=== PATIENT | female | born 1950 | race Caucasian/White ===

== ENCOUNTER 2017-12-21 12:27 | Day surgery (SDC) | payer MEDICARE, OTHER, SELFPAY ==
--- NOTE | 2017-12-21 | PATH_ITS ---
[facility] Accession Number: [id number] . 01 Material submitted: . RANDOM COLON BIOPSY . 02 Diagnosis: Random Colon, Biopsies: Colonic mucosa with no diagnostic abnormality. Negative for active or microscopic colitis. Negative for granulomata, dysplasia or malignancy. MRV/12/22/2017 . 02 Electronically signed: . Ricky Perez MD, PhD, Pathologist NPI- [id number] . 01 Gross description: . Received in one formalin-filled container labeled with the patient's name and labeled random colon, are multiple less than 0.1 cm to 0.4 cm portions of tissue, entirely submitted in one cassette. ([id number]) /FRR . 02 Pathologist provided ICD-10: R19.4 . 02 CPT . 392606 Specimen Comment: A duplicate report has been generated due to demographic updates. Performed at: 01 [facility] [address] [facility], [place], [place] [id number] MD Gil Mary MD Phone: [phone] Performed at: 02 [facility] [address] [place], [place] [id number] MD Ailyn Tinsley MD Phone: [phone]
[2017-12-21 13:21] LABS: Prothrombin Time 10.5 SECONDS (10.1-12.7)
[2017-12-21 14:02] LABS: Hepatitis B Surface Antigen NEGATIVE s/c (NEGATIVE)
[2017-12-21 14:16] VITALS: BP 123/81; PULSE 84; RESP 16; TEMP 36.7; O2SAT 96; BMI 23.8
[2017-12-21] MEDS: SODIUM CHLORIDE 0.9% 1,000 ML 100 ML IV (14:21)
[2017-12-21 14:23] LABS: Hep C Virus Ab w/Reflex Quant NEGATIVE s/c (NEGATIVE)
--- NOTE | 2017-12-21 14:59 | PM.PREOP ---
Pre-operative Note Interval Note Pre-op Check: Yes History & Physical Reviewed by Physician and Yes Exam Performed Changes: No ASA Class (for procedural sedation): II
--- NOTE | 2017-12-21 14:59 | PM.OP.ENDO ---
Operative Date/Time/Diagnoses Date of procedure: 12/21/17 Time of procedure: 15:00 Pre-op diagnosis: See indications and findings Post-op diagnosis: same Procedure & Clinicians Study performed: Colonoscopy Same procedure as scheduled: Yes (Colorectal cancer screening) Indications: Colorectal cancer screening. Incidental indication: Diarrhea Surgeon: Freddy Cardona Procedure Notes Procedure in detail: After informed consent was obtained the patient was placed in the left lateral decubitus position. The video colonoscope was introduced the rectum slowly advanced cecum. On slow withdrawal mucosa was carefully examined. The scope was removed. The patient tolerated the procedure well. Blood loss none Complications none Sedation Versed 10 mg fentanyl 150 mcg Total sedation time 23 min Findings 1. Completely normal colonic mucosa to cecum. Random biopsies taken to rule out microscopic colitis 2. Rare scattered sigmoid diverticula 3. Otherwise negative colonoscopy to cecum. Will be in touch regarding her biopsy results. She will not need a follow-up colonoscopy for 10 years.
[2017-12-21] MEDS: fentaNYL 250 MCG/5 ML INJ IV (15:05)
[2017-12-21] MEDS: MIDAZOLAM 5 MG/5 ML VIAL IV (15:06)
[2017-12-21 15:26] VITALS: BP 100/72; PULSE 79; RESP 14; TEMP 36.8; O2SAT 93
[2017-12-21 15:31] VITALS: BP 100/72; PULSE 78; RESP 13; O2SAT 94
[2017-12-21 15:43] VITALS: BP 99/69; PULSE 72; RESP 16; TEMP 37.3; O2SAT 95
[2017-12-21 15:57] VITALS: BP 112/78; PULSE 71; RESP 16; TEMP 36.8; O2SAT 95
[2017-12-23 20:05] LABS: ANA Pattern Speckled; ANA Screen, IFA Positive (Negative); ANA Titer 1:40 titer (<1:40)
== END 2017-12-21 16:10 | disposition home or self-care (01) ==
PROVIDERS: Family Provider Family Medicine; PCP Family Medicine; Visit Provider Internal Medicine Gastroenterology
PROC: 0DJD8ZZ Inspection of Lower Intestinal Tract, Via Natural or Artificial Opening Endoscopic (ICD-10-PCS; CPT 45378; principal; 2017-12-21 14:30)
DX: Z12.11 Encounter for screening for malignant neoplasm of colon (principal); K57.30 Diverticulosis of large intestine without perforation or abscess without bleeding; E03.9 Hypothyroidism, unspecified
CPT/HCPCS: 45380; 36415; 82728; 85610; 86038; 86803; 87340; 88305; J2250; J3010

== ENCOUNTER 2018-01-20 09:16 | Day surgery (SDC) | payer MEDICARE, OTHER, SELFPAY ==
[2018-01-20] VITALS (21 sets, daily range): BP systolic 106–150; BP diastolic 71–97; PULSE 65–103; RESP 14–18; TEMP 36.3–36.9; O2SAT 93–100; BMI 25.4
--- NOTE | 2018-01-20 | PATH_ITS ---
[facility] Accession Number: [id number] . 01 Material submitted: . LIVER TISSUE . 02 Diagnosis: Liver, Needle Core Biopsies: Liver with mild steatosis (approximatley 15%), predominantly macrovesicular; please see comment. No significant fibrosis on trichrome stain. MRV/01/24/2018 . 02 Comment: Sections are of liver parenchyma with mild steatosis (approximately 15%), predominantly macrovesicular. There is no significant portal or lobular inflammation. Plasma cells are not identified. There is no significant fibrosis on a trichrome stain. A reticulin stain highlights the intact reticulin meshwork. There are no intrahepatocytic globules of alpha-1 antitrypsin deficiency seen on a PAS stain with diastase. There is focal minimal intrahepatocytic iron deposition (1+) highlighted on iron stain. Overall, the findings are mild and nonspecific, but are consistent with metabolic injury. There is no evidence of steatohepatitis in this biopsy. . 02 Electronically signed: . Ricky Perez MD, PhD, Pathologist NPI- [id number] . 01 Gross description: . Received in formalin, labeled US biopsy ABD or RETROPERIT, are multiple fragmented and intact core biopsies of weinberg-white translucent tissue (length-0.2 cm-1.2 cm, diameters-less than 0.1 cm). Entirely submitted in cassette A1. ([id number]) /MRV . 02 Pathologist provided ICD-10: R74.0 . 02 CPT . 248675, 786769, 924220, 770185, 366075 Performed at: 01 [facility] [address] [place] [address] [address], [place], [place] [id number] MD Gil Mary MD Phone: [phone] Performed at: 02 [facility] [address] [place] [id number] MD Ailyn Tinsley MD Phone: [phone]
--- NOTE | 2018-01-20 | DI.US.S_ITS ---
PROCEDURE: US BIOPSY ABD OR RETROPERIT Ultrasound-guided liver biopsy with sedation analgesia for 15 minutes. INDICATIONS: CIRRHOSIS TECHNIQUE: The indications, alternatives, benefits, risks, and complications of the procedure were explained to the patient. Written informed consent was obtained and placed in the chart. Continuous EKG and hemodynamic monitoring was started by trained personnel. Real-time sonography was utilized to choose the site for percutaneous liver biopsy. The skin was prepped and draped in the usual sterile fashion. 1% lidocaine was infiltrated down to the site of interest. A coaxial needle was then advanced into the site of interest under direct sonographic visualization. A biopsy apparatus was then utilized, and core biopsies were obtained. The needle was then withdrawn; a bandage was applied to the biopsy site. COMPARISON: None. FINDINGS: Biopsy site(s): Left lower liver Needle: SiteWit 20 gauge biopsy needle set. Number of passes: 3 Medications: 1% lidocaine for local anaesthesia. IV Versed and Fentanyl for conscious sedation for 15 minutes (see nursing record). Complications: None. IMPRESSION: Successful ultrasound-guided liver biopsy, with pathology results pending. Dictated by: Mick Allen M.D. on 01/20/2018 at 13:31 Approved by: Mick Allen M.D. on 01/20/2018 at 13:34
[2018-01-20] MEDS: ACETAMINOPHEN 325 MG TABLET 975 MG PO (13:06)
[2018-01-20] MEDS: MIDAZOLAM 2 MG/2 ML VIAL 1.5 MG IV (14:45)
[2018-01-20] MEDS: fentaNYL 100 MCG/2 ML INJ 50 MCG IV (14:46)
--- NOTE | 2018-01-20 15:16 | SUR.PHASEII ---
Talked to Dr. Allen and he wants to d/c pt to home. pt awake and alert. denies any pain. pt's bandaid dry and intact.
== END 2018-01-20 15:30 | disposition admitted as inpatient to this hospital (09) ==
PROVIDERS: PCP Family Medicine; Visit Provider Internal Medicine Gastroenterology
PROC: BF25ZZZ Computerized Tomography (CT Scan) of Liver (ICD-10-PCS; CPT 47000; principal; 2018-01-20 10:30)
DX: K76.0 Fatty (change of) liver, not elsewhere classified (principal); R74.0 Nonspecific elevation of levels of transaminase and lactic acid dehydrogenase [LDH]; R94.5 Abnormal results of liver function studies; E03.9 Hypothyroidism, unspecified; R63.4 Abnormal weight loss; R68.81 Early satiety
CPT/HCPCS: 10022; 47000; 49180; 76942; 88307; 88313; J2250; J3010

== ENCOUNTER → 2018-12-29 08:38 | Outpatient (CLI) | payer MEDICARE, OTHER, SELFPAY ==
[2018-12-29 10:42] LABS: Add Manual Diff / Slide Review NO; Basophils Absolute Auto 0 /uL (0-100); Basophils Percent Auto 0.6 % (0-2); Eosinophils Absolute Auto 200 /uL (0-450); Eosinophils Percent Auto 2.6 % (2-4); Hemoglobin 15.4 g/dL (12.0-16.0); Lymphocytes Absolute Auto 1300 /uL (1100-4500); Lymphocytes Percent Auto 19.1 % (25-40); Mean Corpuscular HGB Conc 34.9 % (30-36); Mean Corpuscular Hemoglobin 36.8 PG (26-34); Mean Corpuscular Volume 105.4 fL (80-100); Monocytes Absolute Auto 800 /uL (0-900); Monocytes Percent Auto 11.9 % (3-14); Neutrophils Absolute Auto 4600 /uL (1500-7000); Neutrophils Percent Auto 65.8 % (50-75); Platelet Count 313 X10^3/uL (150-400); Red Blood Cell Count 4.18 X10^6/uL (4.0-5.2); Red Cell Distribution Width 12.6 % (11.6-14.8)
[2018-12-29 10:57] LABS: Carbon Dioxide 25 mmol/L (22-32); Chloride 100 mmol/L (98-107); HEMOLYSIS < 15 (0-50); Potassium 4.1 mmol/L (3.4-5.1); Sodium 137 mmol/L (137-145)
== END ==
PROVIDERS: Family Provider Family Medicine; PCP Family Medicine; Visit Provider Orthopaedic Surgery Adult Reconstructive Orthopaedic Surgery
DX: Z01.818 Encounter for other preprocedural examination (principal); Z01.812 Encounter for preprocedural laboratory examination
CPT/HCPCS: 36415; 80051; 85025; 93005

== ENCOUNTER 2019-01-05 05:59 | Day surgery (SDC) | payer MEDICARE, OTHER, SELFPAY ==
[2019-01-05] VITALS (13 sets, daily range): BP systolic 87–126; BP diastolic 63–82; PULSE 68–99; RESP 12–18; TEMP 36.3–36.8; O2SAT 93–98; BMI 24.5
[2019-01-05] MEDS: LACTATED RINGERS 1,000 ML 42 ML IV (06:50)
[2019-01-05] MEDS: CEFAZOLIN 1 GM VIAL 2 GM IV (08:05)
[2019-01-05] MEDS: ACETAMINOPHEN IV 1,000 MG/100 ML VIAL 400 MG IV (08:15)
--- NOTE | 2019-01-05 08:18 | SUR.OPER ---
Supine on padded OR bed, head on pillow, arms secured on padded arm boards at <90 degrees abduction, legs uncrossed, safety belt at thigh, tape over blanket over lower legs. left leg bumped with blankets, bump under hip also
[2019-01-05] MEDS: BUPIVACAINE 0.5% W/ EPI (PF) VIAL 30 ML INJ (09:52)
--- NOTE | 2019-01-05 09:57 | PM.HP.1 ---
History of Present Illness History of Present Illness Date Patient Seen: 01/05/19 Time Patient Seen: 07:45 Chief complaint: [id number] Narrative: No change in H& P since clinic. Patient is here for open reduction internal fixation of left ankle trimalleolar ankle fracture. Patient History Medical History (Updated 01/01/19 @ 15:17 by Florina Castillo RN) Ankle fracture, left (Acute) Hypothyroid (Acute) Surgical History (Updated 01/01/19 @ 15:16 by Florina Castillo RN) History of dental surgery (Acute) Hx of tonsillectomy (Acute) Family & Social History Social History: household members spouse Tobacco & Substance use: Smoking Status Unknown if ever smoked alcohol intake current Meds Home Medications and Allergies Home Medications Medication Instructions Recorded Confirmed Type levothyroxine 100 mcg PO DAILY 12/21/17 01/05/19 History noawozk-jckxumrzqhzpj-wyvwhyaw 1 tab PO Q4-6H PRN 01/05/19 01/05/19 History [Excedrin Extra Strength] naproxen sodium [Aleve] 220 mg PO Q8H PRN 01/05/19 01/05/19 History Allergies Allergy/AdvReac Type Severity Reaction Status Date / Time erythromycin base Allergy Severe lips Verified 01/05/19 06:45 swelled up Exam Vital Signs (past 8 hours): - 01/05/19 06:57 Temperature 97.8 F Pulse Rate 85 Respiratory Rate 16 Blood Pressure 110/74 Pulse Oximetry 98 Oxygen Delivery Method Room Air
--- NOTE | 2019-01-05 09:58 | PM.OP.1 ---
Operative Date/Time/Diagnoses Date of procedure: 01/05/19 Time of procedure: 09:59 Pre-op diagnosis: Trimalleolar ankle fracture Post-op diagnosis: same Procedure & Clinicians Procedure: Open reduction internal fixation left ankle fracture. Same procedure as scheduled: Yes Indications: Unstable trimalleolar ankle fracture Surgeon: Julián Lombardi Electroplater Apprentice: Richie Jorge Anesthesia Type: General Operative Notes Findings: Unstable trimalleolar ankle fracture Closure Type: primary Specimen(s): none sent Prosthetic devices, grafts, tissues, transplants, or devices: Arthrex left locking distal fibular plate 5 hole Estimated Blood Loss (mL): 50 Blood products transfused: none Tourniquet time (min): 95 Procedure in detail: Patient is met in the preoperative holding area where the site and side of surgery were marked by MD. All last minute questions were answered. Patient was then brought back in the operating room where she was induced under general anesthesia. The left lower extremity splint was then removed. A nonsterile tourniquet was placed and he left lower extremity was then prepped and draped in normal sterile fashion. A time-out was performed verifying the site and side of surgery as well as the name and MRN to the patient. Once this was completed a 10 cm long incision was made over the distal fibula. Skin incision was made using 15 blade dissection down to the level of the bone was made using dissection scissors. The superficial peroneal nerve was not visualized in the field. The fracture was then cleaned with a 15 blade, curette, and irrigation. Once this was completed the fracture was reduced using xybqe-pl-xmfqh clamps. Due the nature of the fracture was unable to place a lag screw. Placed a Arthrex 5 hole left distal fibula locking plate and secured to the bone using BB tacks. I then placed the distal locking screws into the plate. Followed by the proximal locking screws. Tangential views were obtained to verify the reduction. The wound was then irrigated and closed with 2 O Vicryl. We then turned our attention to the medial side a 3 cm long incision made over the medial malleolus at the fracture site. Skin incision was made using 15 blade and sharp dissection down the level of bone was made using dissection scissors. Sgjxl-kt-esnpi clamp was then used to reduce the fracture. Two K-wires were then placed parallel to each other from the tip of the medial malleolus proximal. These were measured to be 55 cm in length these were then overdrilled. X-rays were taken to verify that we were outside of the joint. And to 55 mm partially threaded screws were placed. This was then irrigated. We obtained final films verifying the reduction of the fracture as well as stability of the syndesmosis on external rotation stress view was obtained. The medial wound was then closed with 2 O Vicryl followed by 3 O nylon in horizontal mattress fashion and the lateral incision was finished being closed using 3 O nylon in a horizontal mattress fashion. Xeroform was then placed followed by a short-leg splint. Patient was then extubated and taken to the PACU in stable condition. Complications: none Post-operative Condition: stable Disposition: PACU Plan for aftercare: Plan for discharge home today. NWB LLE for a total of 6 weeks. RTC in 2 weeks for suture removal and transition to CAM boot.
[2019-01-05] MEDS: fentaNYL 100 MCG/2 ML INJ IV ×4 (10:14→10:55)
[2019-01-05] MEDS: OXYCODONE IR 5 MG TABLET PO ×2 (10:24→11:16)
--- NOTE | 2019-01-05 11:18 | SUR.PHASEI ---
Patient arrived in PACU c/o 10/10 pain and crying. Gave po and IV pain medication. Patient denies nausea and is tolerating po. Patient states pain is currently tolerable. Patient able to wriggle toes, cap refill < 2 seconds and patient has normal feeling to toes. Popliteal +2 and palpable.
--- NOTE | 2019-01-05 12:02 | SUR.PHASEII ---
Patient stated her spouse had her cellphone
== END 2019-01-05 12:00 | disposition home or self-care (01) ==
PROVIDERS: Family Provider Family Medicine; PCP Family Medicine; Visit Provider Orthopaedic Surgery Adult Reconstructive Orthopaedic Surgery
PROC: (CPT 27792; principal; 2019-01-05 07:45)
DX: S82.852A Displaced trimalleolar fracture of left lower leg, initial encounter for closed fracture (principal); W01.0XXA Fall on same level from slipping, tripping and stumbling without subsequent striking against object, initial encounter; G89.18 Other acute postprocedural pain
CPT/HCPCS: 27792; 27766; 64445; J0131; J0690; J1100; J2250; J2405; J2704; J3010

== ENCOUNTER 2021-07-03 13:27 | Observation (INO) | payer MEDICARE, OTHER, SELFPAY ==
[2021-07-03] VITALS (19 sets, daily range): BP systolic 102–120; BP diastolic 60–76; PULSE 89–125; RESP 20–31; TEMP 36.6–37.6; O2SAT 91–100; BMI 22.6
[2021-07-03 14:24] LABS: Add Manual Diff / Slide Review NO; Basophils Absolute Auto 100 /uL (0-100); Basophils Percent Auto 0.4 % (0-2); Eosinophils Absolute Auto 0 /uL (0-450); Hematocrit 49.5 % (36-46); Hemoglobin 16.4 g/dL (12.0-16.0); Lymphocytes Absolute Auto 1300 /uL (1100-4500); Lymphocytes Percent Auto 7.2 % (25-40); Mean Corpuscular HGB Conc 33.1 % (30-36); Mean Corpuscular Hemoglobin 36.9 PG (26-34); Mean Corpuscular Volume 111.4 fL (80-100); Monocytes Absolute Auto 2100 /uL (0-900); Monocytes Percent Auto 11.7 % (3-14); Neutrophils Absolute Auto 14600 /uL (1500-7000); Neutrophils Percent Auto 80.7 % (50-75); Platelet Count 216 X10^3/uL (150-400); Red Blood Cell Count 4.44 X10^6/uL (4.0-5.2); Red Cell Distribution Width 14.3 % (11.6-14.8); White Blood Cell Count 18.1 X10^3/uL (4.5-11.0)
[2021-07-03 14:40] LABS: Albumin 4.7 g/dL (3.5-5.0); Albumin Globulin Ratio 1.8 (1.0-2.8); Alkaline Phosphatase 114 U/L (38-126); Aspartate Aminotransferase 228 IU/L (14-36); BUN Creatinine Ratio 10.8 (6-22); Bilirubin Total 1.2 mg/dL (0.2-1.3); Blood Urea Nitrogen 12 mg/dL (7-17); Calcium 9.6 mg/dL (8.4-10.2); Chloride 104 mmol/L (98-107); Estimated Glomerular Filt Rate 53 mL/min (>60); Globulin 2.6 g/dL (1.7-4.1); Lipase 128 U/L (23-300); Potassium 4.2 mmol/L (3.4-5.1); Sodium 144 mmol/L (137-145); Total Protein 7.3 g/dL (6.3-8.2)
[2021-07-03 14:47] LABS: Alanine Aminotransferase 83 IU/L (<35); HEMOLYSIS 30 (0-50)
[2021-07-03 14:50] LABS: Carbon Dioxide 7 mmol/L (22-32); Glucose 42 mg/dL (80-110)
[2021-07-03 14:57] LABS: Macrocytosis 2+
[2021-07-03 15:14] LABS: Ethanol (ETOH) 27 mg/dL
[2021-07-03] MEDS: DEXTROSE 10 % IN WATER 250 ML 999 ML IV (15:15)
[2021-07-03] MEDS: ONDANSETRON 4 MG/2 ML INJ IV (15:50)
[2021-07-03] MEDS: SODIUM CHLORIDE 0.9% 1,000 ML 1000 ML IV ×2 (16:15→19:16)
--- NOTE | 2021-07-03 16:33 | DI.CT.S_ITS ---
PROCEDURE: CT ABDOMEN PELVIS W CON INDICATIONS: vomiting x 1 month, hypoglycemia TECHNIQUE: After the administration of intravenous contrast, axial sections acquired from the lung bases to the pubic symphysis. Coronal and sagittal reformats were performed. For radiation dose reduction, the following was used: automated exposure control, adjustment of mA and/or kV according to patient size. COMPARISON: None. FINDINGS: Lower thorax: The lung bases are clear. Heart size normal. No hiatal hernia. Liver: The liver is diffusely decreased in attenuation without focal mass lesion. Biliary system: No calcified cholelithiasis or pericholecystic inflammation. No intra or extrahepatic bile duct dilatation. Pancreas: Unremarkable without mass or inflammation evident. Spleen: Normal in size and density. Adrenals: Normal morphology and density. Reproductive system: Unremarkable as visualized. Urinary system: Normal renal size and attenuation. No renal calculi, hydronephrosis, or solid mass present. Urinary bladder unremarkable. Gastrointestinal: Gastric antral wall thickening and mucosal enhancement could reflect focal gastritis in the proper clinical setting. The stomach appears unremarkable. Multiple diverticula arise from the sigmoid colon without evidence of diverticulitis. Appendix: Normal appendix identified. No evidence of appendicitis. Peritoneal spaces: No mesenteric or retroperitoneal adenopathy. No free air. No free fluid. Vasculature: The IVC, aorta and iliac vasculature are unremarkable. Abdominal wall: Abdominal wall intact without evidence of ventral or inguinal hernias. Musculoskeletal: Normal bone mineralization. Degenerative disc disease and arthropathy noted in lower lumbar spine. Severe central stenosis at L3-4 No acute fractures. IMPRESSION: 1. Gastric antral wall thickening could reflect gastritis in the proper clinical setting. No obstruction or perforation. 2. Sigmoid diverticulosis without evidence of diverticulitis. 3. Advanced hepatic fatty infiltration and degenerative disc disease with arthropathy resulting in severe L3-4 central stenosis Approved by: Amando Hannah M.D. on 07/03/2021 at 16:21
[2021-07-03] MEDS: SODIUM CHLORIDE 0.9% 1,000 ML 150 ML IV (17:38)
[2021-07-03 18:58] LABS: Lactate (Lactic Acid) 9.6 mmol/L (0.7-2.1)
--- NOTE | 2021-07-03 19:00 | ED.GENADULT ---
HPI - General Adult General Chief complaint: Abdominal Pain Stated complaint: sore throat, stomach cramps, vomiting blood Time Seen by Provider: 07/03/21 16:33 Source: patient and family () Mode of arrival: Ambulatory Limitations: no limitations History of Present Illness HPI narrative: Patient is a 70-year-old female who is here with her for evaluation of a sore throat and stomach cramps and vomiting and abdominal pain. Somewhat difficult to obtain the exact timeline of the onset of the symptoms as it appears that the abdominal issues and nausea and vomiting have actually been going on for several weeks or potentially longer. Does appear that things have worsened over the past couple days. There has been no fevers. No shortness of breath. No chest pain. No change in bowel habits. No urinary symptoms. No muscle pain. No skin rashes. No headaches. She has had issues with nausea and difficulty with eating for some time now. It appears that she fell earlier in the week but did not sustain any injuries from this. She has had a colonoscopy within the past 5 years and was told that everything was ?okay ?she was not given a specific time as to when to return for another colonoscopy. She does drink alcohol every morning for ?medical purposes ?. She is here in the emergency department today with her who encouraged her to come in to be evaluated given the above symptoms. Related Data Home Medications Medication Instructions Recorded Confirmed larxvdy-vuztcpjolumsf-vimvqcyu 250 1 tab PO Q4-6H PRN 01/05/19 07/03/21 mg-250 mg-65 mg tablet (Excedrin Extra Strength) Allergies Allergy/AdvReac Type Severity Reaction Status Date / Time erythromycin base Allergy Severe lips Verified 07/03/21 14:05 swelled up Review of Systems Constitutional Constitutional: Reports system reviewed and no additional complaints, except as documented ENT Ears, Nose, Mouth, and Throat: Reports system reviewed and no additional complaints, except as documented Cardiovascular Cardiovascular: Reports system reviewed and no additional complaints, except as documented Respiratory Respiratory: Reports system reviewed and no additional complaints, except as documented Gastrointestinal Gastrointestinal: Reports system reviewed and no additional complaints, except as documented Genitourinary Genitourinary: Reports system reviewed and no additional complaints, except as documented Musculoskeletal Musculoskeletal: Reports system reviewed and no additional complaints, except as documented Integumentary/Breasts Skin/Breast: Reports system reviewed and no additional complaints, except as documented Neurologic Neurologic: Reports system reviewed and no additional complaints, except as documented Hematologic/Lymphatic On Anticoagulants: No Allergic/Immunologic Allergic/Immunologic: Reports system reviewed and no additional complaints, except as documented Patient History Medical History Ankle fracture, left Hypothyroid Surgical History History of dental surgery Hx of tonsillectomy Social History household members: spouse Smoking Status: Never smoker alcohol intake: current Smoking Status: Unknown if ever smoked alcohol intake frequency: 0-2 drinks per day Alcohol type: wine Exam Initial Vital Signs Initial Vital Signs: Vital Signs Temperature 97.8 F 07/03/21 13:55 Pulse Rate 125 H 07/03/21 13:55 Respiratory Rate 20 07/03/21 13:55 Blood Pressure 104/60 07/03/21 13:55 Pulse Oximetry 100 07/03/21 13:55 Const General: cooperative, healthy appearing and comfortable HENCO Head: normal to inspection Resp Effort & Inspection: normal respiratory effort Auscultation: clear to auscultation bilaterally Cardio Rate: tachycardic Rhythm: regular rhythm GI Inspection: normal to inspection Palpation: soft, No firm, No guarding and No tender Skin General: no rashes or lesions noted Neuro General: patient alert, patient awake, patient oriented x3 and moves all extremities Extrem General: normal to inspection and No edema Psych Appearance: grossly normal and well kempt Scores GCS Bailey coma scale eye opening: Spontaneous Bailey coma scale verbal response: Orientated Bailey coma scale motor response: Obey commands Kentrell coma scale total score: 15 Course Orders Ordered: ED Orders 07/03/21 16:33 CT abdomen pelvis w con Stat 07/03/21 18:21 Lactate (Lactic Acid) Stat 07/03/21 19:27 COVID19 -Nasal RAPID/Pre-Proc Stat 07/03/21 19:33 XR chest 1V Stat 07/03/21 20:55 Blood Culture Stat Acetaminophen (Acetaminophen 325 Mg Tablet) 650 mg PO Q6HR IRIS Last Admin: 07/03/21 23:16 Dose: 650 mg Documented by: CTR.[email or web address] Hydrocodone Bitart/Acetaminophen (Hydrocodone/Acet 5/325 Tablet) 1 tab PO Q4HR PRN PRN Reason: Pain, Moderate (4-6) Folic Acid (Folic Acid 1 Mg Tablet) 1 mg PO DAILY IRIS Sodium Chloride (Normal Saline 0.9%) 1,000 mls @ 150 mls/hr IV CONT IRIS Last Infusion: 07/03/21 20:30 Dose: 0 mls/hr Documented by: Infusion: 07/03/21 19:16 Dose: 0 mls/hr Documented by: Admin: 07/03/21 17:38 Dose: 150 mls/hr Documented by: LACI Sodium Chloride (Normal Saline 0.9%) 1,000 mls @ 100 mls/hr IV CONT IRIS Last Infusion: 07/03/21 23:36 Dose: 100 mls/hr Documented by: Admin: 07/03/21 21:23 Dose: 100 mls/hr Documented by: WALI Dextrose/Sodium Chloride (Dextrose 5%-0.9% Ns) 1,000 mls @ 100 mls/hr IV CONT [facility] Last Admin: 07/03/21 23:36 Dose: 100 mls/hr Documented by: WALI Lorazepam (Lorazepam 1 Mg Tablet) 0 mg PO CIWAPRN PRN; Protocol PRN Reason: Alcohol Withdrawal Last Admin: 07/03/21 23:17 Dose: 1 mg Documented by: WALI Multivitamins (Multivitamin 1 Tablet) 1 tab PO DAILY [facility] Naloxone HCl (Naloxone 0.4 Mg/Ml Vial) 0.2 mg IV Q2MIN PRN PRN Reason: Opiate Reversal Ondansetron HCl (Ondansetron 4 Mg/2 Ml Inj) 4 mg IV Q6HR PRN PRN Reason: Nausea And Vomiting Ondansetron HCl (Ondansetron 4 Mg/2 Ml Inj) 4 mg IV Q8HR PRN PRN Reason: Nausea And Vomiting Thiamine HCl (Thiamine 100 Mg Tablet) 100 mg PO DAILY IIRS Stop: 07/07/21 09:01 Discontinued Medications Dextrose (D10w) 250 mls @ 999 mls/hr IV NOW ONE Stop: 07/03/21 15:27 Last Infusion: 07/03/21 16:00 Dose: 0 mls/hr Documented by: Admin: 07/03/21 15:15 Dose: 999 mls/hr Documented by: TRANG Sodium Chloride (Normal Saline 0.9%) 1,000 mls @ 1,000 mls/hr IV BOLUS ONE Stop: 07/03/21 17:07 Last Infusion: 07/03/21 17:38 Dose: 0 mls/hr Documented by: Admin: 07/03/21 16:15 Dose: 1,000 mls/hr Documented by: KARTHIKEYAN Piperacillin Sod/Tazobactam (Sod 4.5 gm/ Sodium Chloride) 100 mls @ 200 mls/hr IV NOW ONE Stop: 07/03/21 19:04 Last Infusion: 07/03/21 20:04 Dose: 0 mls/hr Documented by: Admin: 07/03/21 19:15 Dose: 200 mls/hr Documented by: LACI Sodium Chloride (Normal Saline 0.9%) 1,000 mls @ 1,000 mls/hr IV BOLUS ONE Stop: 07/03/21 20:03 Last Infusion: 07/03/21 20:30 Dose: 0 mls/hr Documented by: Admin: 07/03/21 19:16 Dose: 1,000 mls/hr Documented by: LACI Ondansetron HCl (Ondansetron 4 Mg/2 Ml Inj) 4 mg IV NOW ONE Stop: 07/03/21 15:47 Last Admin: 07/03/21 15:50 Dose: 4 mg Documented by: TRANG Vital Signs Vital signs: Vital Signs - 8 hr 07/03/21 16:30 07/03/21 17:02 07/03/21 17:30 Pulse Rate 114 H 102 H 105 H Respiratory Rate 31 H 30 H 23 Blood Pressure 120/71 106/69 Pulse Oximetry 96 97 93 07/03/21 18:00 07/03/21 18:30 07/03/21 19:00 Pulse Rate 109 H 116 H 110 H Respiratory Rate 24 Blood Pressure 102/67 Pulse Oximetry 91 94 95 07/03/21 19:30 Pulse Rate 103 H Respiratory Rate Blood Pressure Pulse Oximetry 94 Medical Decision Making Lab Data Lab results reviewed: Yes I reviewed the patient's lab results. Result diagrams: 07/03/21 14:19 07/03/21 14:19 Labs: Lab Results 07/03/21 07/03/2107/03/22 Range/Units 14:19 14:19 14:19 WBC 18.1 H (4.5-11.0) X10^3/uL RBC 4.44 (4.0-5.2) X10^6/uL Hgb 16.4 H (12.0-16.0) g/dL Hct 49.5 H (36-46) % MCV 111.4 H (80-100) fL MCH 36.9 H (26-34) PG MCHC 33.1 (30-36) % RDW 14.3 (11.6-14.8) % Plt Count 216 (150-400) X10^3/uL Neut % (Auto) 80.7 H (50-75) % Lymph % (Auto) 7.2 L (25-40) % Wilkinson % (Auto) 11.7 (3-14) % Eos % (Auto) 0.0 L (2-4) % Baso % (Auto) 0.4 (0-2) % Neut # (Auto) 25578 H (4629-8927) /uL Lymph # (Auto) 1300 (4932-0768) /uL Wilkinson # (Auto) 2100 H (0-900) /uL Eos # (Auto) 0 (0-450) /uL Baso # (Auto) 100 (0-100) /uL RBC Morphology See below Macrocytosis 2+ H Sodium 144 (137-145) mmol/L Potassium 4.2 (3.4-5.1) mmol/L Chloride 104 (98-107) mmol/L Carbon Dioxide 7 L* (22-32) mmol/L BUN 12 (7-17) mg/dL Creatinine 1.11 H (0.52-1.04) mg/dL Estimated GFR 53 L (>60) mL/min BUN/Creatinine Ratio 10.8 (6-22) Glucose 42 L* (80-110) mg/dL Lactate (0.7-2.1) mmol/L Calcium 9.6 (8.4-10.2) mg/dL Total Bilirubin 1.2 (0.2-1.3) mg/dL AST 228 H (14-36) IU/L ALT 83 H (<35) IU/L Alkaline Phosphatase 114 (38-126) U/L Total Protein 7.3 (6.3-8.2) g/dL Albumin 4.7 (3.5-5.0) g/dL Globulin 2.6 (1.7-4.1) g/dL Albumin/Globulin Ratio 1.8 (1.0-2.8) Lipase 128 (23-300) U/L Ethyl Alcohol 27 H ( - 10) mg/dL SARS-CoV-2 (PCR) (Negative) 07/03/21 07/03/21 Range/Units 18:21 19:27 WBC (4.5-11.0) X10^3/uL RBC (4.0-5.2) X10^6/uL Hgb (12.0-16.0) g/dL Hct (36-46) % MCV (80-100) fL MCH (26-34) PG MCHC (30-36) % RDW (11.6-14.8) % Plt Count (150-400) X10^3/uL Neut % (Auto) (50-75) % Lymph % (Auto) (25-40) % Wilkinson % (Auto) (3-14) % Eos % (Auto) (2-4) % Baso % (Auto) (0-2) % Neut # (Auto) (6017-9356) /uL Lymph # (Auto) (0986-3786) /uL Wilkinson # (Auto) (0-900) /uL Eos # (Auto) (0-450) /uL Baso # (Auto) (0-100) /uL RBC Morphology Macrocytosis Sodium (137-145) mmol/L Potassium (3.4-5.1) mmol/L Chloride (98-107) mmol/L Carbon Dioxide (22-32) mmol/L BUN (7-17) mg/dL Creatinine (0.52-1.04) mg/dL Estimated GFR (>60) mL/min BUN/Creatinine Ratio (6-22) Glucose (80-110) mg/dL Lactate 9.6 H* (0.7-2.1) mmol/L Calcium (8.4-10.2) mg/dL Total Bilirubin (0.2-1.3) mg/dL AST (14-36) IU/L ALT (<35) IU/L Alkaline Phosphatase (38-126) U/L Total Protein (6.3-8.2) g/dL Albumin (3.5-5.0) g/dL Globulin (1.7-4.1) g/dL Albumin/Globulin Ratio (1.0-2.8) Lipase (23-300) U/L Ethyl Alcohol ( - 10) mg/dL SARS-CoV-2 (PCR) Negative (Negative) Point of Care Testing Glucose POC 113 Urine Dip Bedside Urine Glucose Negative Bedside Urine Bilirubin - Negative Bedside Urine Ketone +++ 80 Urine Specific Alger 1.020 Bedside Urine Occult Blood +/- Bedside Urine pH 5.5 Bedside Urine Protein - Negative Bedside Urine Urobilinogen - Negative Bedside Urine Nitrite - Negative Bedside Urine Leukocytes + 70 Esterase Point of care testing: Point of Care Testing Glucose POC 113 Urine Dip Bedside Urine Glucose Negative Bedside Urine Bilirubin - Negative Bedside Urine Ketone +++ 80 Urine Specific Alger 1.020 Bedside Urine Occult Blood +/- Bedside Urine pH 5.5 Bedside Urine Protein - Negative Bedside Urine Urobilinogen - Negative Bedside Urine Nitrite - Negative Bedside Urine Leukocytes + [address] scan - abdomen/pelvis: Radiologist's Impression: [place] [address] CT Scan Report Signed Patient: Cindy Collins MR#: [id number] : 1950 Acct:[id number] Age/Sex: 70 / F Date of Service: 07/03/21 Loc: Accession Number: [id number] ?? Procedure: CT abdomen pelvis w con Ordering Provider: Tracey Mcnamara D.O. PROCEDURE:? CT ABDOMEN PELVIS W CON ? INDICATIONS:? vomiting x 1 month, hypoglycemia ? TECHNIQUE:? After the administration of intravenous contrast, axial sections acquired from the lung bases to the pubic symphysis.? Coronal and sagittal reformats were performed.? For radiation dose reduction, the following was used:? automated exposure control, adjustment of mA and/or kV according to patient size.? ? COMPARISON:? None. ? FINDINGS: ? Lower thorax: The lung bases are clear.? Heart size normal.? No hiatal hernia. ? Liver: The liver is diffusely decreased in attenuation without focal mass lesion. ? Biliary system:? No calcified cholelithiasis or pericholecystic inflammation.? No intra or extrahepatic bile duct dilatation. ? Pancreas:? Unremarkable without mass or inflammation evident. ? Spleen:? Normal in size and density. ? Adrenals:? Normal morphology and density. ? Reproductive system:? Unremarkable as visualized. ? Urinary system:? Normal renal size and attenuation. No renal calculi, hydronephrosis, or solid mass present.? Urinary bladder unremarkable. ? Gastrointestinal:? Gastric antral wall thickening and mucosal enhancement could reflect focal gastritis in the proper clinical setting. The stomach appears unremarkable.? Multiple diverticula arise from the sigmoid colon without evidence of diverticulitis. ? ? Appendix:? Normal appendix identified.? No evidence of appendicitis. ? Peritoneal spaces:? No mesenteric or retroperitoneal adenopathy.? No free air.? No free fluid.? ? Vasculature:? The IVC, aorta and iliac vasculature are unremarkable. ? Abdominal wall:? Abdominal wall intact without evidence of ventral or inguinal hernias. ? Musculoskeletal:? Normal bone mineralization.? Degenerative disc disease and arthropathy noted in lower lumbar spine.? Severe central stenosis at L3-4? No acute fractures.? ? IMPRESSION: ? 1. Gastric antral wall thickening could reflect gastritis in the proper clinical setting. ?No obstruction or perforation. ? 2. Sigmoid diverticulosis without evidence of diverticulitis. ? 3. Advanced hepatic fatty infiltration and degenerative disc disease with arthropathy resulting in severe L3-4 central stenosis ? Approved by: Amando Hannah M.D. on 07/03/2021 at 16:21? Chest x-ray: Radiologist's Impression: [address] [address] XRay Report Signed Patient: Cindy Collins MR#: [id number] : 1950 Acct:[id number] Age/Sex: 70 / F Date of Service: 07/03/21 Loc: 90D-1 Accession Number: [id number] ?? Procedure: XR chest 1V Ordering Provider: Omi Ho D.O. PROCEDURE:? XR CHEST 1V ? INDICATIONS:? eval for PNA ? TECHNIQUE:? One view of the chest was acquired.? ? COMPARISON:? None. ? FINDINGS:? ? Surgical changes and devices:? None.? ? Lungs and pleura:? Lungs are clear.? No pleural effusions or pneumothorax.? ? Mediastinum:? Mediastinal contours appear normal.? Heart size is normal.? ? Bones and chest wall:? No suspicious bony lesions.? Overlying soft tissues appear unremarkable.? ? IMPRESSION:? No acute process. ? ? Dictated by: Boom Ramsey M.D. on 07/03/2021 at 19:58 ? ? Approved by: Boom Ramsey M.D. on 07/03/2021 at 19:58?? ECG Data Attestation: I personally reviewed and interpreted this ECG as follows: Interpretation: Sinus tachycardia Ventricular rate 114 Left axis deviation Normal QRS Normal QTC ST T vision MDM Narrative Medical decision making narrative: Unsure exactly how long her presenting symptoms today have been going on it appears that several of the symptoms that brought her in a been going on for at least the past several weeks if not longer however does appear things have worsened over the past couple days. She has very nonspecific abdominal tenderness and a benign abdominal exam. CT scan shows what appears to be a gastritis. Given her alcohol use history there was some concern about an alcoholic gastritis. Labs show a leukocytosis. Patient is tachycardic. Initially patient declined blood cultures. Fluids were administered. Lactate elevated at greater than 9. Antibiotics were administered however they were started after the lactate returned because initially I was not convinced that there was a specific infection despite her tachycardic on leukocytosis. She did have an elevation in her hemoglobin and hematocrit which could also be signs hemoconcentration which can add to the elevation in her white blood cell count. Given her presenting symptoms her lab abnormalities patient does require admission to the hospital for further evaluation and treatment. I did discuss the case with hospitalist who will admit. Discussed need for admission with the patient. She expressed understanding and agreement. Discharge Plan Departure Patient Disposition: Admitted As Inpatient Clinical Impression: Gastritis Qualifiers: Gastritis type: unspecified gastritis Chronicity: acute Gastritis bleeding: with bleeding Qualified Code(s): K29.01 - Acute gastritis with bleeding Admit Date/Time: 07/03/21 19:58 Admit Provider: Vicky Jiang
[2021-07-03] MEDS: PIPERACILLIN/TAZO 4.5 GM in SODIUM CHLORIDE 0.9% 100 ML IV (19:15)
--- NOTE | 2021-07-03 19:33 | DI.RAD.S_ITS ---
PROCEDURE: XR CHEST 1V INDICATIONS: eval for PNA TECHNIQUE: One view of the chest was acquired. COMPARISON: None. FINDINGS: Surgical changes and devices: None. Lungs and pleura: Lungs are clear. No pleural effusions or pneumothorax. Mediastinum: Mediastinal contours appear normal. Heart size is normal. Bones and chest wall: No suspicious bony lesions. Overlying soft tissues appear unremarkable. IMPRESSION: No acute process. Dictated by: Boom Ramsey M.D. on 07/03/2021 at 19:58 Approved by: Boom Ramsey M.D. on 07/03/2021 at 19:58
[2021-07-03 20:11] LABS: COVID19 -Nasal RAPID Negative (Negative)
[2021-07-03 20:25] LABS: Reflexed Lactate in 2 Hours Y
--- NOTE | 2021-07-03 20:30 | P.HP_ITS ---
History of Present Illness History of Present Illness Date Patient Seen: 07/03/21 Date of Onset of Symptoms: 07/02/21 Chief complaint: sore throat, stomach cramps, vomiting blood Narrative: 70-year-old very pleasant female with no significant past medical history with significant Excedrin use and ongoing alcohol daily use started having worsening the stomach cramps and vomited small amount of blood yesterday. She has been having decrease in appetite and also decrease in oral intake potentially had a mechanical fall related to weakness brought by her because of for oral intake concerns. Patient other than complaining some abdominal discomfort she d enies any specific symptoms. On further questioning patient says abdominal pain is diffuse probably 3/10 associated with some diarrhea which has been chronic but episode of vomiting yesterday. Patient says that Excedrin did help for the pain but she primarily takes that for her headaches. She also drinks 4 oz of wine in the morning and 4 oz of wine in the evening. She has been doing this for several years. As per the she does not drink much water and her overall diet intake is been relatively poor. She is active with daily routine. She does have headaches but not more than usual. Denies any vision changes. She denies any history of alcohol withdrawals. No recent hospitalization. No exposure to sick contacts. No further episodes of vomiting blood or coughing blood today. Patient History Medical History Ankle fracture, left Hypothyroid Surgical History History of dental surgery Hx of tonsillectomy Family & Social History Social History: household members spouse Safety & Behavioral: Feels Safe in Current Yes Environment Tobacco & Substance use: Smoking Status Unknown if ever smoked alcohol intake current alcohol intake frequency 0-2 drinks per day Meds Home Medications and Allergies Home Medications Medication Instructions Recorded Confirmed Type eebnokm-rzgedrbeblcpo-shfvpxrk 250 1 tab PO Q4-6H PRN 01/05/19 07/03/21 History mg-250 mg-65 mg tablet (Excedrin Extra Strength) Allergies Allergy/AdvReac Type Severity Reaction Status Date / Time erythromycin base Allergy Severe lips Verified 07/03/21 14:05 swelled up Review of Systems Review of Systems Narrative: Patient denies any change in the color of the stools. Denies any significant weight changes in recent past. All other systems has been reviewed. Negative. Exam Vital Signs (past 8 hours): - 07/03/21 13:55 07/03/21 14:58 07/03/21 14:59 Temperature 97.8 F Pulse Rate 125 H 114 H 114 H Respiratory Rate 20 Blood Pressure 104/60 106/63 Pulse Oximetry 100 97 97 07/03/21 15:00 07/03/21 15:30 07/03/21 16:00 Temperature Pulse Rate 115 H 109 H 118 H Respiratory Rate 27 H 26 H Blood Pressure 102/64 103/64 105/76 Pulse Oximetry 97 97 95 07/03/21 16:30 07/03/21 17:02 07/03/21 17:30 Temperature Pulse Rate 114 H 102 H 105 H Respiratory Rate 31 H 30 H 23 Blood Pressure 120/71 106/69 Pulse Oximetry 96 97 93 07/03/21 18:00 07/03/21 18:30 Temperature Pulse Rate 109 H 116 H Respiratory Rate 24 Blood Pressure 102/67 Pulse Oximetry 91 94 Oxygen Delivery Method Room Air Objective Labs Result Diagrams: 07/03/21 14:19 07/03/21 14:19 Labs: Laboratory Results - last 24 hr 07/03/21 07/03/21 07/03/21 14:19 14:19 14:19 WBC 18.1 H RBC 4.44 Hgb 16.4 H Hct 49.5 H MCV 111.4 H MCH 36.9 H MCHC 33.1 RDW 14.3 Plt Count 216 Neut % (Auto) 80.7 H Lymph % (Auto) 7.2 L Clinton % (Auto) 11.7 Eos % (Auto) 0.0 L Baso % (Auto) 0.4 Neut # (Auto) 09849 H Lymph # (Auto) 1300 Clinton # (Auto) 2100 H Eos # (Auto) 0 Baso # (Auto) 100 RBC Morphology See below Macrocytosis 2+ H Sodium 144 Potassium 4.2 Chloride 104 Carbon Dioxide 7 L* BUN 12 Creatinine 1.11 H Estimated GFR 53 L BUN/Creatinine Ratio 10.8 Glucose 42 L* Lactate Calcium 9.6 Total Bilirubin 1.2 AST 228 H ALT 83 H Alkaline Phosphatase 114 Total Protein 7.3 Albumin 4.7 Globulin 2.6 Albumin/Globulin Ratio 1.8 Lipase 128 Ethyl Alcohol 27 H SARS-CoV-2 (PCR) 07/03/21 07/03/21 18:21 19:27 WBC RBC Hgb Hct MCV MCH MCHC RDW Plt Count Neut % (Auto) Lymph % (Auto) Clinton % (Auto) Eos % (Auto) Baso % (Auto) Neut # (Auto) Lymph # (Auto) Clinton # (Auto) Eos # (Auto) Baso # (Auto) RBC Morphology Macrocytosis Sodium Potassium Chloride Carbon Dioxide BUN Creatinine Estimated GFR BUN/Creatinine Ratio Glucose Lactate 9.6 H* Calcium Total Bilirubin AST ALT Alkaline Phosphatase Total Protein Albumin Globulin Albumin/Globulin Ratio Lipase Ethyl Alcohol SARS-CoV-2 (PCR) Negative Assessment & Plan Assessment and plan (1) Gastritis: Qualifiers: Chronicity: acute Gastritis bleeding: with bleeding Gastritis type: unspecified gastritis Qualified Code(s): K29.01 - Acute gastritis with bleeding Status: Acute (2) Upper GI bleed: Status: Acute (3) Dehydration: Status: Acute (4) SIRS (systemic inflammatory response syndrome): Status: Acute Plan Admit under observation status IV fluids Watch for any alcohol withdrawal symptoms, [facility] protocol H&H monitoring Q6H Surgery called for EGD in the morning, NPO from midnight Patient already received Zosyn for potential GI infection Cultures are pending Continue Zosyn, discontinue antibiotics if cultures are negative, chest x-ray negative for acute process. My suspicion for ongoing infectious process is low. Compression stockings for DVT prophylaxis, ambulation as tolerated. Protonix ordered for GI prophylaxis. Patient is full code. Patient has been extensively discussed regarding Excedrin use, alcohol use. at bedside. Care plan extensively discussed. Answered all the questions. Overall prognosis has been discussed. Time Spent With Patient Critical Care time: I spent a total of [80] minutes of critical care time on this patient's care today; this time is exclusive of procedural time.
[2021-07-03] MEDS: SODIUM CHLORIDE 0.9% 1,000 ML 100 ML IV (21:23)
[2021-07-03 21:31] LABS: Lactate 2HR (Lactic Acid Rflx) 4.2 mmol/L (0.7-2.1)
[2021-07-03] MEDS: LORazepam 1 MG TABLET PO (23:17)
[2021-07-03] MEDS: DEXTROSE 5%-0.9% NS 1,000 ML 100 ML IV (23:36)
--- NOTE | 2021-07-03 23:49 | PC.NURSE ---
Lab called with Lactate critical value of 4.2. Informed Dr Jiang of value at 2104.
[2021-07-04] VITALS (24 sets, daily range): BP systolic 90–124; BP diastolic 59–85; PULSE 72–90; RESP 13–21; TEMP 36.1–37.1; O2SAT 93–98; BMI 22.6
--- NOTE | 2021-07-04 | PATH_ITS ---
[facility] Accession Number: [id number] . 01 Material submitted: . gastrointestinal site - GASTRIC ANTRUM . 01 Diagnosis: A. Stomach, Antrum, Biopsy: Antral mucosa with mild chronic gastritis. Negative for Helicobacter by immunohistochemistry. Negative for intestinal metaplasia. Negative for dysplasia and malignancy. MRV 07/09/2021 1304 Local . 01 Electronically signed: . Ailyn Tinsley MD, Pathologist NPI- [id number] . 01 Gross description: . GASTRIC ANTRUM: Received in formalin is 1 fragment(s) of mcleod, soft tissue measuring 0.3 x 0.2 x 0.2 cm submitted entirely in 1 cassette(s) /[place] 07/07/2021 2225 Local . 01 Microscopic: . An immunohistochemical stain was performed to evaluate for Helicobacter organisms and is negative. The control stain showed appropriate reactivity. . * This test was developed and its performance characteristics determined by [facility]. It has not been cleared or approved by the U.S. Food and Drug Administration. The FDA has determined that such clearance or approval is not necessary. This test is used for clinical purposes. It should not be regarded as investigational or for research. . 01 Pathologist provided ICD-10: R10.9 . 01 CPT . 167810, R01304 Specimen Comment: A courtesy copy of this report has been sent to [phone] Performed at: 01 [facility] [address] [place] [address], [place], [place] [id number] MD Gil Mary MD Phone: [phone]
[2021-07-04] MEDS: ONDANSETRON 4 MG/2 ML INJ IV (01:45)
[2021-07-04] MEDS: HYDROCODONE/ACET 5/325 TABLET 1 TAB PO (01:45)
[2021-07-04 02:47] LABS: Hematocrit 36.9 % (36-46); Hemoglobin 12.5 g/dL (12.0-16.0)
[2021-07-04] MEDS: ACETAMINOPHEN 325 MG TABLET 650 MG PO ×3 (06:30→18:41)
[2021-07-04 07:43] LABS: Prothrombin Time 10.7 SECONDS (10.1-12.7)
[2021-07-04 07:48] LABS: Alanine Aminotransferase 55 IU/L (<35); Albumin 3.3 g/dL (3.5-5.0); Albumin Globulin Ratio 1.5 (1.0-2.8); Alkaline Phosphatase 67 U/L (38-126); Aspartate Aminotransferase 106 IU/L (14-36); Blood Urea Nitrogen 11 mg/dL (7-17); Calcium 8.1 mg/dL (8.4-10.2); Carbon Dioxide 24 mmol/L (22-32); Chloride 106 mmol/L (98-107); Estimated Glomerular Filt Rate > 60 mL/min (>60); Globulin 2.2 g/dL (1.7-4.1); Glucose 132 mg/dL (80-110); HEMOLYSIS < 15 (0-50); Potassium 4.1 mmol/L (3.4-5.1); Sodium 135 mmol/L (137-145); Total Protein 5.5 g/dL (6.3-8.2)
[2021-07-04] MEDS: PANTOPRAZOLE 40 MG VIAL IV ×2 (08:13→20:25)
[2021-07-04] MEDS: DEXTROSE 5%-0.9% NS 1,000 ML 100 ML IV (09:22)
--- NOTE | 2021-07-04 10:15 | PM.CN ---
History of Present Illness Consult details Date Patient Seen: 07/04/21 Time Patient Seen: 10:15 Chief complaint: sore throat, stomach cramps, vomiting blood Reason for consult: Upper GI bleed Requesting provider: Minh Traore Narrative: hemetemisis yesterday with abdominal discomfort and h/o ETOH chronic use. No previous episodes. No prior EGDs. Coughing up blood has stopped. still indigestion and anxiety. Mild anemia. Feels better NPO and on PPI. Meds Home Medications and Allergies Home Medications Medication Instructions Recorded Confirmed Type [id number] 250 1 tab PO Q4-6H PRN 01/05/19 07/03/21 History mg-250 mg-65 mg tablet (Excedrin Extra Strength) Allergies Allergy/AdvReac Type Severity Reaction Status Date / Time erythromycin base Allergy Severe lips Verified 07/03/21 14:05 swelled up Review of Systems Review of Systems ROS: Yes All systems reviewed with the patient and are negative except as otherwise documented Exam Vital Signs (past 8 hours): - 07/04/21 04:00 07/04/21 08:20 Temperature 98.5 F 98.0 F Pulse Rate 81 79 Respiratory Rate 17 16 Blood Pressure 95/59 L 100/67 Pulse Oximetry 93 96 Oxygen Delivery Method Room Air Oxygen Flow Rate 0 Const General: cooperative and anxious Nutritional Appearance: average body habitus Orientation: alert and oriented x3 HENMT Head: normal to inspection, normocephalic and atraumatic Eyes General: appearance normal, both eyes and all related structures Sclera: sclerae normal Neck Neck: trachea midline Chest Chest: normal inspection of the chest Resp Effort & Inspection: normal respiratory effort and able to speak in complete sentences Cardio Rate: regular rate Rhythm: regular rhythm GI Inspection: normal to inspection Palpation: soft Skin General: elasticity normal and atrophy Neuro General: patient alert and patient oriented x3 Cognition: normal cognition Speech: speech normal Extrem General: full ROM Psych Appearance: grossly normal Mental Status: mental status grossly normal Judgment: judgment good Objective Labs Result Diagrams: 07/04/21 02:36 07/04/21 07:30 Labs: Laboratory Results - last 24 hr 07/03/21 07/03/21 07/03/21 14:19 14:19 14:19 WBC 18.1 H RBC 4.44 Hgb 16.4 H Hct 49.5 H MCV 111.4 H MCH 36.9 H MCHC 33.1 RDW 14.3 Plt Count 216 Neut % (Auto) 80.7 H Lymph % (Auto) 7.2 L [place] % (Auto) 11.7 Eos % (Auto) 0.0 L Baso % (Auto) 0.4 Neut # (Auto) 89457 H Lymph # (Auto) 1300 [place] # (Auto) 2100 H Eos # (Auto) 0 Baso # (Auto) 100 RBC Morphology See below Macrocytosis 2+ H PT INR Sodium 144 Potassium 4.2 Chloride 104 Carbon Dioxide 7 L* BUN 12 Creatinine 1.11 H Estimated GFR 53 L BUN/Creatinine Ratio 10.8 Glucose 42 L* Lactate Calcium 9.6 Total Bilirubin 1.2 AST 228 H ALT 83 H Alkaline Phosphatase 114 Total Protein 7.3 Albumin 4.7 Globulin 2.6 Albumin/Globulin Ratio 1.8 Lipase 128 Ethyl Alcohol 27 H SARS-CoV-2 (PCR) 07/03/21 07/03/21 07/03/21 18:21 19:27 20:55 WBC RBC Hgb Hct MCV MCH MCHC RDW Plt Count Neut % (Auto) Lymph % (Auto) [place] % (Auto) Eos % (Auto) Baso % (Auto) Neut # (Auto) Lymph # (Auto) [place] # (Auto) Eos # (Auto) Baso # (Auto) RBC Morphology Macrocytosis PT INR Sodium Potassium Chloride Carbon Dioxide BUN Creatinine Estimated GFR BUN/Creatinine Ratio Glucose Lactate 9.6 H* 4.2 H* Calcium Total Bilirubin AST ALT Alkaline Phosphatase Total Protein Albumin Globulin Albumin/Globulin Ratio Lipase Ethyl Alcohol SARS-CoV-2 (PCR) Negative 07/04/21 07/04/21 07/04/21 02:36 07:30 07:30 WBC RBC Hgb 12.5 Hct 36.9 MCV MCH MCHC RDW Plt Count Neut % (Auto) Lymph % (Auto) [place] % (Auto) Eos % (Auto) Baso % (Auto) Neut # (Auto) Lymph # (Auto) [place] # (Auto) Eos # (Auto) Baso # (Auto) RBC Morphology Macrocytosis PT 10.7 INR 1.0 Sodium 135 L Potassium 4.1 Chloride 106 Carbon Dioxide 24 BUN 11 Creatinine 0.61 Estimated GFR > 60 BUN/Creatinine Ratio 18.0 Glucose 132 H Lactate Calcium 8.1 L Total Bilirubin 1.0 AST 106 H ALT 55 H Alkaline Phosphatase 67 Total Protein 5.5 L Albumin 3.3 L Globulin 2.2 Albumin/Globulin Ratio 1.5 Lipase Ethyl Alcohol SARS-CoV-2 (PCR) [facility] Medical History Ankle fracture, left Hypothyroid Surgical History History of dental surgery Hx of tonsillectomy Social History household members: spouse Tobacco & Substance Use Smoking Status: Never smoker alcohol intake: current Assessment & Plan Assessment & Plan narrative: Upper GI bleed with gastritis appearance of stomach on CT scan. H/o ETOH abuse Plan: EGD with anesthesia COVID-19 COVID-19 status: Negative Time Spent With Patient Critical Care time: I spent a total of [] minutes of critical care time on this patient's care today; this time is exclusive of procedural time.
--- NOTE | 2021-07-04 10:55 | PM.OP.EGD ---
Operative Date/Time/Diagnoses Date of procedure: 07/04/21 Time of procedure: 10:55 Pre-op diagnosis: Upper GI bleed Post-op diagnosis: same Procedure & Clinicians Study performed: EGD with anesthesia and cold forcep biopsy Same procedure as scheduled: Yes Indications: Upper GI Surgeon: Radha Chu Procedure Notes SCOAP/Timeout: Done Procedure in detail: Prep diagnosis: Upper GI bleed Postop diagnosis: Same Operative procedure: EGD with anesthesia and cold forceps biopsy Surgeon: Jojo Chu MD Findings: Mild esophagitis. Moderate gastritis. Moderate duodenitis. Biopsies taken of the gastric antrum for H pylori Procedure: Patient placed in a supine position. Intubated with a general anesthetic. A scope was inserted into the esophagus and advanced into the stomach. With the insufflation identified pylorus intubated into the duodenum. Insufflation extraction scope occluding retroflexed and the above findings. Biopsies taken of the antrum and sent for H pylori. Impression: Mild esophagitis, moderate gastritis, moderate duodenitis. No active bleeding but evidence of old blood. Plan: Return to observation. Ppi b.i.d. for a minimum of 8 weeks. Follow-up with PCP 6-8 weeks. Stop drinking alcohol. Findings: gastritis and other findings (Esophagitis and duodenitis) Specimen(s): other (Antral biopsies from cold forceps) Complications: none Impression: Duodenitis gastritis of a moderate variant. Mild esophagitis. H pylori pending Post-procedure Recommendations: EDG in 6-8 weeks Plan for aftercare: PPI for 8 weeks b.i.d. Follow up: weeks (6-8 weeks PCP follow-up) Disposition: PACU
[2021-07-04] MEDS: LACTATED RINGERS 1,000 ML 42 ML IV (11:01)
--- NOTE | 2021-07-04 12:57 | PM.PN.1 ---
Subjective Subjective Interval history: The patient reports feeling well after her return from endoscopy suite. She is requesting to eat. She endorses drinking up to 6 alcoholic drinks daily, fairly regularly. She also endorses taking up to 5 tablets of Excedrin daily, too, for headaches, body aches, etc. Exam Vital Signs (past 8 hours): - 07/04/21 08:13 07/04/21 08:20 07/04/21 10:35 Temperature 98.0 F 97.6 F Pulse Rate 79 72 Respiratory Rate 16 20 Blood Pressure 100/67 98/66 Pulse Oximetry 96 96 97 07/04/21 11:00 07/04/21 11:02 07/04/21 11:07 Temperature 97.6 F Pulse Rate 87 88 87 Respiratory Rate 21 14 13 Blood Pressure 90/59 L 92/61 99/63 Pulse Oximetry 96 96 96 07/04/21 12:34 Temperature Pulse Rate Respiratory Rate Blood Pressure Pulse Oximetry 96 Oxygen Delivery Method Room Air Oxygen Flow Rate 0 Const Other: The patient is sitting up in bed comfortably upon my entering the room, reading a newspaper, with at bedside, and in no apparent acute distress Eyes Other: No scleral icterus appreciated Resp Other: Lungs clear to auscultation bilaterally Cardio Other: RRR, with normal S1 and S2 heart sounds, and no extra heart sounds or murmurs appreciated GI Other: Soft, non-distended, with slight tenderness to epigastrum, bowel sounds present Skin Other: No grossly abnormal skin lesions noted Extrem Other: Palpable dorsalis pedis bilaterally Objective Labs Result Diagrams: 07/04/21 02:36 07/04/21 07:30 Labs: Laboratory Results - last 24 hr 07/03/21 07/03/21 07/03/21 14:19 14:19 14:19 WBC 18.1 H RBC 4.44 Hgb 16.4 H Hct 49.5 H MCV 111.4 H MCH 36.9 H MCHC 33.1 RDW 14.3 Plt Count 216 Neut % (Auto) 80.7 H Lymph % (Auto) 7.2 L [place] % (Auto) 11.7 Eos % (Auto) 0.0 L Baso % (Auto) 0.4 Neut # (Auto) 99189 H Lymph # (Auto) 1300 [place] # (Auto) 2100 H Eos # (Auto) 0 Baso # (Auto) 100 RBC Morphology See below Macrocytosis 2+ H PT INR Sodium 144 Potassium 4.2 Chloride 104 Carbon Dioxide 7 L* BUN 12 Creatinine 1.11 H Estimated GFR 53 L BUN/Creatinine Ratio 10.8 Glucose 42 L* Lactate Calcium 9.6 Total Bilirubin 1.2 AST 228 H ALT 83 H Alkaline Phosphatase 114 Total Protein 7.3 Albumin 4.7 Globulin 2.6 Albumin/Globulin Ratio 1.8 Lipase 128 Ethyl Alcohol 27 H SARS-CoV-2 (PCR) 07/03/21 07/03/21 07/03/21 18:21 19:27 20:55 WBC RBC Hgb Hct MCV MCH MCHC RDW Plt Count Neut % (Auto) Lymph % (Auto) [place] % (Auto) Eos % (Auto) Baso % (Auto) Neut # (Auto) Lymph # (Auto) [place] # (Auto) Eos # (Auto) Baso # (Auto) RBC Morphology Macrocytosis PT INR Sodium Potassium Chloride Carbon Dioxide BUN Creatinine Estimated GFR BUN/Creatinine Ratio Glucose Lactate 9.6 H* 4.2 H* Calcium Total Bilirubin AST ALT Alkaline Phosphatase Total Protein Albumin Globulin Albumin/Globulin Ratio Lipase Ethyl Alcohol SARS-CoV-2 (PCR) Negative 07/04/21 07/04/21 07/04/21 02:36 07:30 07:30 WBC RBC Hgb 12.5 Hct 36.9 MCV MCH MCHC RDW Plt Count Neut % (Auto) Lymph % (Auto) [place] % (Auto) Eos % (Auto) Baso % (Auto) Neut # (Auto) Lymph # (Auto) [place] # (Auto) Eos # (Auto) Baso # (Auto) RBC Morphology Macrocytosis PT 10.7 INR 1.0 Sodium 135 L Potassium 4.1 Chloride 106 Carbon Dioxide 24 BUN 11 Creatinine 0.61 Estimated GFR > 60 BUN/Creatinine Ratio 18.0 Glucose 132 H Lactate Calcium 8.1 L Total Bilirubin 1.0 AST 106 H ALT 55 H Alkaline Phosphatase 67 Total Protein 5.5 L Albumin 3.3 L Globulin 2.2 Albumin/Globulin Ratio 1.5 Lipase Ethyl Alcohol SARS-CoV-2 (PCR) [facility] Medical History Ankle fracture, left Hypothyroid Surgical History History of dental surgery Hx of tonsillectomy Social History household members: spouse Smoking Status: Never smoker alcohol intake: current Assessment & Plan Assessment & Plan narrative: Assessment: 1. UGIB, likely secondary to gastritis/duodenitis 2. Gastritis/duodenitis, likely secondary to EtOH abuse and frequent Excedrin use 3. Fatty liver disease, likely secondary to EtOH abuse 4. EtOH abuse, not in acute withdrawal Plan: 1. IV Protonix 40 mg bid on-board. Patient will need PO Protonix 40 mg bid for at least 8 weeks. Duodenal biopsy for H. pylori was taken during endoscopy. 2. Protonix as above. Patient extensively counseled on the need to stop drinking EtOH and to not take NSAIDS (each capsule of Excedrin contains aspirin 250 mg). 3. Patient extensively counseled on the natural progression of this disease to cirrhosis, if EtOH intake is not ceased. 4. Patient endorses drinking 4-6 EtOH drinks daily (mostly wine glasses). Blood EtOH 27 on admission. The patient is not in active withdrawal. VTE prophylaxis: Hold for now, given likely UGIB Code: Full Code Surrogate: I have utilized all available immediate resources to obtain, update, or verify the patient's current medications. Time Spent With Patient Critical Care time: I spent a total of [] minutes of critical care time on this patient's care today; this time is exclusive of procedural time. Quality VTE Deep Vein Thrombosis/Pulmonary Embolism Present on Admission: No MIPS - Admit I confirm the patient?s Advance Care Plan is present, Code status is documented, Surrogate decision maker is in patient?s record [If Yes, STOP here]: Yes
--- NOTE | 2021-07-04 14:58 | CM.DANOTE ---
Initial Discharge Plan Assessment Case received, EMR reviewed and met with patient and spouse Allen. Introduced myself, Hannah and our role. 70 y/o female admitted yesterday evening to care of hospitalist team. PCP: Deidre Wills Payer: Medicare, [facility] Patient was admitted with abdominal pain, hematemesis which are resolving. She has had decreased intake lately and had a recent fall. She apparently consumes 4-5 Exedrin per day for headaches and she reports drinking 4 glasses of wine per day for a long time. CIWA protocol in effect, patient denies withdrawal symptoms. Patient underwent EGD today. DCPs discussed adverse effects of chronic alcohol intake and discussed some resources available for cessation. She states she is not interested in abstaining from alcohol at this time. P: Patient will most likely discharge tomorrow to care of spouse who will transport her in private vehicle. Discharge Planning/Care Management CM Discharge Assessment Start: 07/04/21 14:29 Freq: Status: Active Protocol: Document 07/04/21 14:30 (Rec: 07/04/21 14:32 [id number]) Discharge Planning Assessment Advance Directives? No Advance Directives on File No History Provided By Patient,Family Member,Medical Record Prior Living Arrangements House Household Members spouse Type of transporation used prior to Relies on Others admit Independent with ADL's Yes Is patient alert and oriented? Yes Needs Assistance With Home Chores / Shopping Caregiver for Another No Barriers to Discharge No Discharge Plan Home Referrals Initiated None needed Whiteboard Updated in Patient Room with Yes name and ext. # of Line Production Cook Next Review Type Continued Stay Review
--- NOTE | 2021-07-04 16:16 | PC.NURSE ---
Addendum entered by Elin Goodson R.N. 07/04/21 16:48: pt frequently gets in and out of bed. balance is unstable when she up. bed alarm on. Original Note: pt is anxious to go home. she is wondering why her dropped her off here. I explained to her all the reasons why she needs to stay, also explained that her H/H dropped and it is better if she is in the hospital for observation. she then said she could always to go to [facility] or a hospital in [place]. She also called her , I can hear her yelling through the phone pt said [facility] notified provider. seizure precautions.
[2021-07-04] MEDS: LORazepam 1 MG TABLET PO ×2 (16:35→18:41)
[2021-07-04 17:24] LABS: Hematocrit 39.3 % (36-46); Hemoglobin 13.4 g/dL (12.0-16.0)
[2021-07-05] VITALS: O2SAT 97
[2021-07-05] MEDS: ACETAMINOPHEN 325 MG TABLET 650 MG PO (00:05)
[2021-07-05 04:00] VITALS: O2SAT 95
[2021-07-05 05:10] VITALS: BP 101/66; PULSE 73; RESP 16; TEMP 36.8; O2SAT 97
[2021-07-05 06:31] LABS: Hematocrit 41.8 % (36-46); Hemoglobin 14.5 g/dL (12.0-16.0); Mean Corpuscular HGB Conc 34.6 % (30-36); Mean Corpuscular Hemoglobin 37.1 PG (26-34); Mean Corpuscular Volume 107.2 fL (80-100); Platelet Count 133 X10^3/uL (150-400); Red Blood Cell Count 3.89 X10^6/uL (4.0-5.2); Red Cell Distribution Width 14.1 % (11.6-14.8); White Blood Cell Count 5.5 X10^3/uL (4.5-11.0)
[2021-07-05 06:43] LABS: BUN Creatinine Ratio 11.1 (6-22); Blood Urea Nitrogen 6 mg/dL (7-17); Calcium 9.1 mg/dL (8.4-10.2); Carbon Dioxide 25 mmol/L (22-32); Chloride 107 mmol/L (98-107); Estimated Glomerular Filt Rate > 60 mL/min (>60); Glucose 83 mg/dL (80-110); HEMOLYSIS < 15 (0-50); Magnesium 2.2 mg/dL (1.6-2.3); Potassium 3.3 mmol/L (3.4-5.1); Sodium 137 mmol/L (137-145)
[2021-07-05] MEDS: POTASSIUM CHLORIDE 20 MEQ TAB 40 MEQ PO (08:00)
[2021-07-05 08:15] VITALS: BP 121/77; PULSE 81; RESP 20; TEMP 36.7; O2SAT 96
[2021-07-05] MEDS: FOLIC ACID 1 MG TABLET PO (09:52)
[2021-07-05] MEDS: THIAMINE 100 MG TABLET PO (09:53)
[2021-07-05] MEDS: MULTIVITAMIN 1 TABLET 1 TAB PO (09:53)
[2021-07-05] MEDS: PANTOPRAZOLE 40 MG VIAL IV (09:54)
--- NOTE | 2021-07-05 11:54 | PC.NURSE ---
Pt received morning meds and was discharged today at 11:15. Discharge material given to patient, patient signature placed in chart. Pt prematurely pulled IV to keep and take home. Nurse found IV and placed it in sharps container. No tele monitor on patient. Because it is a holiday weekend, family needed to know if pt is able to go a day without her pantoprazole. According to Dr. Le, pt can take 2x20 mg Prilosec OTC tablets BID if their medication is unavailable. They will follow up with their PCP to get referral for EGD in 6-8 weeks.
--- NOTE | 2021-07-05 13:51 | P.DS_ITS ---
History of Present Illness History of Present Illness Chief complaint: sore throat, stomach cramps, vomiting blood Narrative: 70-year-old very pleasant female with no significant past medical history with significant Excedrin use and ongoing alcohol daily use started having worsening the stomach cramps and vomited small amount of blood yesterday.? She has been having decrease in appetite and also decrease in oral intake potentially had a mechanical fall related to weakness brought by her because of for oral intake concerns.? Patient other than complaining some abdominal discomfort she denies any specific symptoms.? On further questioning patient says abdominal pain is diffuse probably 3/10 associated with some diarrhea which has been chronic but episode of vomiting yesterday.? Patient says that Excedrin did help for the pain but she primarily takes that for her headaches.? She also drinks 4 oz of wine in the morning and 4 oz of wine in the evening.? She has been doing this for several years.? As per the she does not drink much water and her overall diet intake is been relatively poor.? She is active with daily routine.? She does have headaches but not more than usual.? Denies any vision changes.? She denies any history of alcohol withdrawals.? No recent hospitalization.? No exposure to sick contacts.? No further episodes of vomiting blood or coughing blood today. Discharge Providers Provider Date of admission: 07/03/21 19:58 Discharge Date: 07/05/21 Primary care physician: Deidre Wills MD Consults: 07/04/21 08:35 Consult to General Surgery Routine Comment: Consulting Provider: Minh Traore Reason for consultation: Endoscopy for concern of UGIB Has provider been notified: Yes Discharge provider: Caesar Le MD Summary Hospital Course Discharge Diagnosis: 1. Acute upper GI bleed 2. Esophagitis 3. Gastritis and duodenitis 4. Fatty liver disease 5. Alcohol abuse EGD:Duodenitis gastritis of a moderate variant.? Mild esophagitis.? H pylori pending. Hospital Course: Patient was admitted for hematemesis. She had drop in hemoglobin but did not become overtly anemic. EGD showed esophagitis, gastritis and duodenitis. Biopsy H pylori pending. Obvious causes are chronic alcohol abuse and daily multiple Excedrin intake for chronic neck pain/headaches. She was treated with IV Protonix. Dr. Chu recommended to stay on Protonix minimum of 8 weeks and a repeat EGD in 8 weeks. Patient advised S2 alcohol cessation and to avoid aspirin/NSAIDs. She may take Tylenol not to exceed recommended doses on pa ckaging. Status at Discharge Cognitive/behavioral status at discharge: oriented Functional status at discharge: independent ambulation Overall status at discharge: patient is back to baseline Time Spent with Patient Time spent: Less than 30 minutes Exam Vital Signs (past 8 hours): - 07/05/21 08:15 Temperature 98.0 F Pulse Rate 81 Respiratory Rate 20 Blood Pressure 121/77 Pulse Oximetry 96 Oxygen Delivery Method Room Air Oxygen Flow Rate 0 Narrative Exam Narrative: General: Alert NAD Breathing nonlabored Neurological normal affect and speech Objective Labs Result Diagrams: 07/05/21 06:06 07/05/21 06:06 Labs: Laboratory Results - last 24 hr 07/04/21 07/05/21 07/05/21 16:57 06:06 06:06 WBC 5.5 D RBC 3.89 L Hgb 13.4 14.5 Hct 39.3 41.8 MCV 107.2 H D MCH 37.1 H MCHC 34.6 RDW 14.1 Plt Count 133 L Sodium 137 Potassium 3.3 L Chloride 107 Carbon Dioxide 25 BUN 6 L Creatinine 0.54 Estimated GFR > 60 BUN/Creatinine Ratio 11.1 Glucose 83 Calcium 9.1 Magnesium 2.2 PFSH Medical History Ankle fracture, left Hypothyroid Surgical History History of dental surgery Hx of tonsillectomy Social History household members: spouse Smoking Status: Never smoker alcohol intake: current Discharge Plan Discharge Plan Patient Disposition: Home Provider Discharge Comment: Your EGD showed esophagitis, gastritis, and duodenitis likely due to combination of aspirin and alcohol intake. Take pantoprazole for minimum of 8 weeks. Stop drinking alcohol. Stop aspirin. Repeat EGD in 6 to 8 [address] was recommended [address] Dr Chu. Also you had mild elevation of liver enzymes and your CT showed showed fatty liver disease which is likely from alcohol intake. Discharge orders & Medications Prescriptions: New pantoprazole 40 mg tablet,delayed release (DR/EC) 40 mg PO DAILY Qty: 60 1RF Discontinued Excedrin Extra Strength 250-250-65 mg Tablet 1 tab PO Q4-6H PRN (Reason: Headache) 0RF Follow up/Referrals: Deidre Wills MD [Primary Care Provider] - Diet/Activity/Treatments Diet: Regular Discharge Data Primary Care Provider: Deidre Wills Attending Provider: Vicky Jiang VTE Deep Vein Thrombosis/Pulmonary Embolism Present on Admission: No
== END 2021-07-05 11:15 | disposition home or self-care (01) ==
LOC: ED 19:54 → AC 20:52
PROVIDERS: Emergency Medicine; Student in an Organized Health Care Education/Training Program; Surgery; Admitting Provider Family Medicine; Emergency Provider Emergency Medicine; Family Provider Family Medicine; PCP Family Medicine; Referring Provider Emergency Medicine; Visit Provider Family Medicine
PROC: 0DJ08ZZ Inspection of Upper Intestinal Tract, Via Natural or Artificial Opening Endoscopic (ICD-10-PCS; CPT 43235; principal; 2021-07-04 10:30)
DX: K29.70 Gastritis, unspecified, without bleeding (principal); R10.9 Unspecified abdominal pain; K92.0 Hematemesis; K29.80 Duodenitis without bleeding; K20.90 Esophagitis, unspecified without bleeding; K76.0 Fatty (change of) liver, not elsewhere classified; E86.0 Dehydration; F10.10 Alcohol abuse, uncomplicated; Y90.1 Blood alcohol level of 20-39 mg/100 ml; Z20.822 Contact with and (suspected) exposure to COVID-19
CPT/HCPCS: 43239; 36415; 71045; 74177; 80048; 80053; 80320; 81003; 82962; 83605; 83690; 83735; 85014; 85018; 85025; 85027; 85610; 87040; 87635; 93005; 94760; 96361; 96365; 96375; 96376; 99284; C9803; G0378; C9113; J0330; J2250; J2405; J2543; J2704

== ENCOUNTER 2022-05-04 18:29 | Emergency (ER) | payer MEDICARE, OTHER, SELFPAY ==
[2021-07-03 20:49] VITALS: BMI 22.6
[2022-05-04] VITALS (9 sets, daily range): BP systolic 106–130; BP diastolic 74–85; PULSE 73–91; RESP 15–16; TEMP 36.7; O2SAT 95–99; BMI 22.4
[2022-05-04] MEDS: SODIUM CHLORIDE 0.9% 1,000 ML 1000 ML IV (18:50)
--- NOTE | 2022-05-04 18:54 | ED.NAVMDI ---
HPI - Nausea/Vomiting/Diarrhea General Chief complaint: Nausea/Vomiting/Diarrhea Stated complaint: unable to eat, vomits it all up Time Seen by Provider: 05/04/22 18:45 Source: patient and family Mode of arrival: Ambulatory History of Present Illness HPI Narrative: Patient is a 71-year-old female. For quite some time now is having problems with her esophagus and having problems swallowing. She is also lost her appetite. She is vomiting quite a bit. Is not on any anti nausea medication. Has seen her primary doctor. Has a follow-up with GI scheduled but it is not for several weeks. She does have history of alcohol abuse. Has nausea when she eats. Is tolerating her own secretions. Related Data Home Medications Medication Instructions Recorded Confirmed levothyroxine 125 mcg tablet 125 mcg PO DAILY 05/04/22 05/04/22 Previous Rx's Medication Instructions Recorded pantoprazole 40 mg tablet,delayed 40 mg PO DAILY #60 tabs 07/05/21 release ondansetron 4 mg disintegrating 4 mg PO Q6H PRN nausea and 05/04/22 tablet vomiting #20 tabs sucralfate 100 mg/mL oral 10 ml PO QACHS #414 mL 05/04/22 suspension (Carafate) Allergies Allergy/AdvReac Type Severity Reaction Status Date / Time erythromycin base Allergy Severe lips Verified 05/04/22 18:44 swelled up Review of Systems Constitutional Constitutional: Reports system reviewed and no additional complaints, except as documented ENT Ears, Nose, Mouth, and Throat: Reports system reviewed and no additional complaints, except as documented Cardiovascular Cardiovascular: Reports system reviewed and no additional complaints, except as documented Respiratory Respiratory: Reports system reviewed and no additional complaints, except as documented Gastrointestinal Gastrointestinal: Reports system reviewed and no additional complaints, except as documented Genitourinary Genitourinary: Reports system reviewed and no additional complaints, except as documented Hematologic/Lymphatic On Anticoagulants: No Patient History Medical History Ankle fracture, left Hypothyroid Surgical History History of dental surgery Hx of tonsillectomy Social History household members: spouse Smoking Status: Never smoker alcohol intake: current Smoking Status: Never smoker alcohol intake frequency: 0-2 drinks per day Alcohol type: wine Substance Use Type: does not use Exam Initial Vital Signs Initial Vital Signs: Vital Signs Temperature 98.1 F 05/04/22 18:30 Pulse Rate 89 05/04/22 18:30 Respiratory Rate 15 05/04/22 18:30 Blood Pressure 130/85 05/04/22 18:30 Pulse Oximetry 98 05/04/22 18:30 Oxygen Delivery Method Room Air 05/04/22 18:30 Const General: cooperative HENMT Head: normal to inspection and normocephalic Resp Effort & Inspection: normal respiratory effort Auscultation: clear to auscultation bilaterally Cardio Rate: regular rate Rhythm: regular rhythm GI Inspection: normal to inspection Palpation: soft and No tender Neuro General: patient alert, patient awake and patient oriented x3 Extrem General: normal to inspection Course Orders Ordered: ED Orders 05/04/22 18:44 EKG-12 Lead Stat 05/04/22 18:51 Complete Blood Count AUTO DIFF Stat Comprehensive Metabolic Panel Stat ETOH [Ethanol (ETOH)] Stat Lipase Stat Discontinued Medications Sodium Chloride (Normal Saline 0.9%) 1,000 mls @ 1,000 mls/hr IV BOLUS ONE Stop: 05/04/22 19:44 Last Infusion: 05/04/22 19:53 Dose: 0 mls/hr Documented By: Admin: 05/04/22 18:50 Dose: 1,000 mls/hr Documented By: MARCUS Ondansetron HCl (Ondansetron 4 Mg Odt) 4 mg PO NOW PRN PRN Reason: Nausea And Vomiting Ondansetron HCl (Ondansetron 4 Mg/2 Ml Inj) 4 mg IV NOW PRN PRN Reason: Nausea And Vomiting Last Admin: 05/04/22 19:05 Dose: 4 mg Documented By: CYNTHIA Ondansetron HCl (Ondansetron 4 Mg Odt Prepack) 1 bottle MISC SEEINSTR ONE Stop: 05/04/22 21:22 Last Admin: 05/04/22 21:43 Dose: 1 bottle Documented By: GLENDA Pantoprazole Sodium (Pantoprazole 40 Mg Vial) 40 mg IV NOW ONE Stop: 05/04/22 19:00 Last Admin: 05/04/22 19:25 Dose: 40 mg Documented By: GLENDA Vital Signs Vital signs: Vital Signs - 8 hr 05/04/22 18:30 05/04/22 18:37 05/04/22 19:22 Temperature 98.1 F Pulse Rate 89 90 78 Respiratory Rate 15 Blood Pressure 130/85 Pulse Oximetry 98 98 98 Oxygen Delivery Method Room Air 05/04/22 19:23 05/04/22 19:23 05/04/22 19:30 Temperature Pulse Rate 80 Respiratory Rate Blood Pressure 118/83 117/84 Pulse Oximetry 98 Oxygen Delivery Method 05/04/22 19:30 05/04/22 20:00 05/04/22 20:00 Temperature Pulse Rate 78 82 Respiratory Rate Blood Pressure 106/74 Pulse Oximetry 96 95 Oxygen Delivery Method 05/04/22 20:30 05/04/22 20:30 05/04/22 21:00 Temperature Pulse Rate 82 Respiratory Rate Blood Pressure 130/83 123/79 Pulse Oximetry 96 Oxygen Delivery Method 05/04/22 21:00 05/04/22 21:27 05/04/22 21:27 Temperature Pulse Rate 73 91 H Respiratory Rate 16 Blood Pressure 124/83 Pulse Oximetry 97 99 Oxygen Delivery Method Room Air MDM - Nausea/Vomiting/Diarrhea Lab Data Attestation: I reviewed the patient's lab results. 05/04/22 18:51 05/04/22 18:51 Labs: Lab Results 05/04/22 05/04/22 05/04/22 Range/Units 18:51 18:51 18:51 WBC 6.7 (4.5-11.0) X10^3/uL RBC 4.12 (4.0-5.2) X10^6/uL Hgb 15.2 (12.0-16.0) g/dL Hct 43.5 (36-46) % MCV 105.6 H (80-100) fL MCH 36.9 H (26-34) PG MCHC 35.0 (30-36) % RDW 13.5 (11.6-14.8) % Plt Count 276 (150-400) X10^3/uL Neut % (Auto) 75.5 H (50-75) % Lymph % (Auto) 15.6 L (25-40) % Elliott % (Auto) 8.0 (3-14) % Eos % (Auto) 0.5 L (2-4) % Baso % (Auto) 0.4 (0-2) % Neut # (Auto) 5100 (1969-4462) /uL Lymph # (Auto) 1100 (5795-0914) /uL Elliott # (Auto) 500 (0-900) /uL Eos # (Auto) 0 (0-450) /uL Baso # (Auto) 0 (0-100) /uL Sodium 133 L (137-145) mmol/L Potassium 4.0 (3.4-5.1) mmol/L Chloride 96 L (98-107) mmol/L Carbon Dioxide 29 (22-32) mmol/L BUN 6 L (7-17) mg/dL Creatinine 0.45 L (0.52-1.04) mg/dL Estimated GFR > 60 (>60) mL/min BUN/Creatinine Ratio 13.3 (6-22) Glucose 99 (80-110) mg/dL Calcium 8.9 (8.4-10.2) mg/dL Total Bilirubin 1.2 (0.2-1.3) mg/dL AST 83 H (14-36) IU/L ALT 43 H (<35) IU/L Alkaline Phosphatase 121 (38-126) U/L Total Protein 6.4 (6.3-8.2) g/dL Albumin 3.3 L (3.5-5.0) g/dL Globulin 3.1 (1.7-4.1) g/dL Albumin/Globulin Ratio 1.1 (1.0-2.8) Lipase 94 (23-300) U/L Ethyl Alcohol < 10 ( - 10) mg/dL ECG Data Attestation: I personally reviewed and interpreted this ECG as follows: Interpretation: Sinus rhythm Ventricular rate 80 Left axis deviation Normal QRS No ST T wave changes MDM Narrative Medical decision making narrative: Patient is tolerating oral intake. Her labs here in the emergency department are unremarkable. I 100% agree that the patient does require follow-up with Gastroenterology. She is obviously tolerating fluids as she is been drinking alcohol up until at least 3 days ago. We discussed that she could take other supplements by mouth to include ensure/boost or other liquids that could give her the calories that she needs. We discussed that potentially she just needs to eat something despite the fact that she does not have any appetite for it. There is no indication for admission to the hospital today. I will send her home with a prescription for Zofran. Will also start her on Carafate as this may help with any potential gastric ulcer. She was given return precautions. She expressed understanding and agreement. Discharge Plan Departure Patient Disposition: Home Clinical Impression: Dysphagia Instructions: Oropharyngeal Dysphagia Activity Restrictions/Additional Instructions: I do recommend that you keep your scheduled appointment with the ear nose and throat providers. I also recommend that you increase your intake of soft foods like we discussed. Return to the emergency department for new symptoms. You can contact the general surgeons the number provided below to see if they can see you sooner for the upper endoscopy. Prescriptions: New ondansetron 4 mg tablet,disintegrating 4 mg PO Q6H PRN (Reason: nausea and vomiting) Qty: 20 0RF sucralfate [Carafate] 100 mg/mL suspension 10 ml PO QACHS Qty: 414 2RF No Action pantoprazole 40 mg tablet,delayed release (DR/EC) 40 mg PO DAILY Qty: 60 1RF levothyroxine 125 mcg tablet 125 mcg PO DAILY Referrals: Deidre Wills MD [Primary Care Provider] - Gabino Suh MD [Physician] - Stand Alone Forms: Patient Portal/API
[2022-05-04 19:00] LABS: Add Manual Diff / Slide Review NO; Basophils Absolute Auto 0 /uL (0-100); Basophils Percent Auto 0.4 % (0-2); Eosinophils Absolute Auto 0 /uL (0-450); Eosinophils Percent Auto 0.5 % (2-4); Hematocrit 43.5 % (36-46); Hemoglobin 15.2 g/dL (12.0-16.0); Lymphocytes Absolute Auto 1100 /uL (1100-4500); Lymphocytes Percent Auto 15.6 % (25-40); Mean Corpuscular Hemoglobin 36.9 PG (26-34); Mean Corpuscular Volume 105.6 fL (80-100); Monocytes Absolute Auto 500 /uL (0-900); Neutrophils Absolute Auto 5100 /uL (1500-7000); Neutrophils Percent Auto 75.5 % (50-75); Platelet Count 276 X10^3/uL (150-400); Red Blood Cell Count 4.12 X10^6/uL (4.0-5.2); Red Cell Distribution Width 13.5 % (11.6-14.8); White Blood Cell Count 6.7 X10^3/uL (4.5-11.0)
[2022-05-04] MEDS: ONDANSETRON 4 MG/2 ML INJ IV (19:05)
[2022-05-04 19:13] LABS: Alanine Aminotransferase 43 IU/L (<35); Albumin 3.3 g/dL (3.5-5.0); Albumin Globulin Ratio 1.1 (1.0-2.8); Alkaline Phosphatase 121 U/L (38-126); Aspartate Aminotransferase 83 IU/L (14-36); BUN Creatinine Ratio 13.3 (6-22); Bilirubin Total 1.2 mg/dL (0.2-1.3); Blood Urea Nitrogen 6 mg/dL (7-17); Calcium 8.9 mg/dL (8.4-10.2); Carbon Dioxide 29 mmol/L (22-32); Chloride 96 mmol/L (98-107); Estimated Glomerular Filt Rate > 60 mL/min (>60); Ethanol (ETOH) < 10 mg/dL; Globulin 3.1 g/dL (1.7-4.1); Glucose 99 mg/dL (80-110); HEMOLYSIS 81 (0-50); Lipase 94 U/L (23-300); Sodium 133 mmol/L (137-145); Total Protein 6.4 g/dL (6.3-8.2)
[2022-05-04] MEDS: PANTOPRAZOLE 40 MG VIAL IV (19:25)
[2022-05-04] MEDS: ONDANSETRON 4 MG ODT PREPACK 1 BOTTLE MISC (21:43)
== END 2022-05-04 21:38 | disposition home or self-care (01) ==
PROVIDERS: Emergency Provider Emergency Medicine; Family Provider Family Medicine; PCP Family Medicine
DX: R13.10 Dysphagia, unspecified (principal); R10.9 Unspecified abdominal pain
CPT/HCPCS: 36415; 80053; 80320; 83690; 85025; 93005; 96361; 96374; 96375; 99284; C9113; J2405

== ENCOUNTER → 2022-05-13 10:25 | Outpatient (CLI) | payer MEDICARE, OTHER, SELFPAY ==
[2021-07-03 20:49] VITALS: BMI 22.6
--- NOTE | 2022-05-13 10:27 | DI.RAD.S_ITS ---
PROCEDURE: FL BARIUM SWALLOW INDICATIONS: Dysphagia COMPARISON: CT, CT ABDOMEN PELVIS W CON, 07/03/2021, 16:48. FINDINGS: Function: There is mild esophageal dysmotility. There is moderate gastroesophageal reflux. There is normal transit of a calibrated barium tablet through the esophagus into the stomach. Morphology: Air-contrast images demonstrate normal mucosal morphology. Single contrast views show no esophageal strictures, extrinsic mass effects, or diverticula. There is a small sliding hiatal hernia. Limited images of the stomach demonstrate normal appearance. IMPRESSION: 1. Moderate gastroesophageal reflux. 2. Mild esophageal dysmotility. 3. Small sliding hiatal hernia. Dictated by: Fermin Choi M.D. on 05/13/2022 at 18:17 Approved by: Fermin Choi M.D. on 05/13/2022 at 18:19
== END ==
PROVIDERS: Family Provider Family Medicine; PCP Nurse Practitioner Family; Referring Provider Surgery; Visit Provider Surgery
DX: R13.10 Dysphagia, unspecified (principal); K22.4 Dyskinesia of esophagus; K21.9 Gastro-esophageal reflux disease without esophagitis; K44.9 Diaphragmatic hernia without obstruction or gangrene
CPT/HCPCS: 74220

== ENCOUNTER → 2022-07-30 09:35 | Outpatient (CLI) | payer MEDICARE, OTHER, SELFPAY ==
[2021-07-03 20:49] VITALS: BMI 22.6
--- NOTE | 2022-07-30 09:40 | DI.RAD.S_ITS ---
PROCEDURE: XR ABDOMEN 3V INDICATIONS: Diarrhea, unspecified TECHNIQUE: One view chest and two views of the abdomen were acquired. COMPARISON: [facility], CT, CT ABDOMEN PELVIS W CON, 07/03/2021, 16:48. FINDINGS: Surgical changes and devices: None. Chest: Lungs are clear. Heart size is normal. No pleural effusions. No pneumoperitoneum. Abdomen: Bowel gas pattern is normal. No suspicious abdominal calcification is seen. Visualized solid organ contours appear normal. Bones: No suspicious bony lesions. Levoconvex curvature of the lumbar spine. Multilevel degenerative changes. IMPRESSION: Nonspecific nonobstructive bowel gas pattern. No pneumoperitoneum. Approved by: Thomas Escalera M.D. on 07/30/2022 at 12:51
[2022-07-30 12:02] LABS: Add Manual Diff / Slide Review NO; Basophils Absolute Auto 0 /uL (0-100); Basophils Percent Auto 0.8 % (0-2); Eosinophils Absolute Auto 800 /uL (0-450); Eosinophils Percent Auto 15.7 % (2-4); Hematocrit 46.5 % (36-46); Hemoglobin 15.7 g/dL (12.0-16.0); Lymphocytes Absolute Auto 1100 /uL (1100-4500); Lymphocytes Percent Auto 22.7 % (25-40); Mean Corpuscular HGB Conc 33.7 % (30-36); Mean Corpuscular Hemoglobin 36.2 PG (26-34); Mean Corpuscular Volume 107.1 fL (80-100); Monocytes Absolute Auto 500 /uL (0-900); Monocytes Percent Auto 10.7 % (3-14); Neutrophils Absolute Auto 2400 /uL (1500-7000); Neutrophils Percent Auto 50.1 % (50-75); Platelet Count 210 X10^3/uL (150-400); Red Blood Cell Count 4.34 X10^6/uL (4.0-5.2); Red Cell Distribution Width 13.2 % (11.6-14.8); White Blood Cell Count 4.8 X10^3/uL (4.5-11.0)
[2022-07-30 12:17] LABS: Prothrombin Time 11.5 SECONDS (10.1-12.7)
[2022-07-30 12:28] LABS: Alanine Aminotransferase 79 IU/L (<35); Albumin 3.1 g/dL (3.5-5.0); Albumin Globulin Ratio 1.2 (1.0-2.8); Alkaline Phosphatase 142 U/L (38-126); Aspartate Aminotransferase 148 IU/L (14-36); Bilirubin Total 0.9 mg/dL (0.2-1.3); Calcium 8.9 mg/dL (8.4-10.2); Carbon Dioxide 27 mmol/L (22-32); Chloride 105 mmol/L (98-107); Estimated Glomerular Filt Rate > 60 mL/min (>60); Globulin 2.6 g/dL (1.7-4.1); Glucose 98 mg/dL (80-110); HEMOLYSIS < 15 (0-50); Potassium 3.8 mmol/L (3.4-5.1); Sodium 139 mmol/L (137-145); Total Protein 5.7 g/dL (6.3-8.2)
[2022-07-30 12:29] LABS: BUN Creatinine Ratio 5.3 (6-22); Blood Urea Nitrogen 2 mg/dL (7-17)
[2022-07-30 13:31] LABS: Folate 5.6 ng/mL (2.76-20.0); Vitamin B12 492 pg/mL (239-931)
[2022-07-31 07:31] LABS: Alpha Fetoprotein 3.2 ng/mL (0.0-9.2)
[2022-08-03 18:54] LABS: Tissue Transglutaminase IgA <2 U/mL (0-3); Tissue Transglutaminase IgG 3 U/mL (0-5)
== END ==
PROVIDERS: Family Provider Family Medicine; PCP Nurse Practitioner Family; Referring Provider Internal Medicine Gastroenterology; Visit Provider Internal Medicine Gastroenterology
DX: K59.00 Constipation, unspecified (principal); R93.3 Abnormal findings on diagnostic imaging of other parts of digestive tract; R19.7 Diarrhea, unspecified; R94.5 Abnormal results of liver function studies; R79.89 Other specified abnormal findings of blood chemistry; R13.10 Dysphagia, unspecified; R63.0 Anorexia; R63.4 Abnormal weight loss
CPT/HCPCS: 36415; 74021; 80053; 82105; 82607; 82746; 83516; 85025; 85610

== ENCOUNTER → 2022-08-28 10:46 | Outpatient (CLI) | payer MEDICARE, OTHER, SELFPAY ==
[2021-07-03 20:49] VITALS: BMI 22.6
--- NOTE | 2022-08-28 10:48 | DI.CT.S_ITS ---
PROCEDURE: CT PEL WO CON INDICATIONS: BONY PELVIC PAIN TECHNIQUE: Noncontrast 3 mm axial sections acquired through the bony pelvis, with coronal and sagittal reformatting. COMPARISON: [facility], CT, CT ABDOMEN PELVIS W CON, 07/03/2021, 16:48. FINDINGS: Image quality: Excellent. Bones: No acute fracture. No suspicious osseous lesions. Normal alignment. Moderate lower lumbar spondylosis. Degenerative changes of the bilateral hips. Degenerative changes of the bilateral sacroiliac joints. No evidence for ankylosis. No suspicious osseous erosions. Soft tissues: No suspicious soft tissue abnormalities. No abnormal focal fluid collection. Atherosclerotic vascular calcifications. Scattered colonic diverticulosis without acute diverticulitis. Normal appendix. No pelvic adenopathy. IMPRESSION: CT pelvis without acute abnormalities. No acute osseous abnormality seen. Moderate degenerative changes of the lower lumbar spine, bilateral sacroiliac joints, and the bilateral hips. Dictated by: Christophe Arguello M.D. on 08/28/2022 at 11:40 Approved by: Christophe Arguello M.D. on 08/28/2022 at 11:43
== END ==
PROVIDERS: Family Provider Family Medicine; PCP Nurse Practitioner Family; Referring Provider Physical Medicine & Rehabilitation Pain Medicine; Visit Provider Physical Medicine & Rehabilitation Pain Medicine
DX: M89.8X8 Other specified disorders of bone, other site (principal); M47.816 Spondylosis without myelopathy or radiculopathy, lumbar region; K57.90 Diverticulosis of intestine, part unspecified, without perforation or abscess without bleeding
CPT/HCPCS: 72192

== ENCOUNTER 2023-02-25 10:08 | Inpatient (IN) | payer MEDICARE, OTHER, SELFPAY ==
[2021-07-03 20:49] VITALS: BMI 22.6
[2023-02-25] VITALS (44 sets, daily range): BP systolic 86–106; BP diastolic 55–69; PULSE 69–103; RESP 20–61; TEMP 36.7; O2SAT 89–96; BMI 20.7
--- NOTE | 2023-02-25 12:05 | ED_ITS ---
HPI - SOB/Dyspnea General Chief Complaint: Upper Respiratory Symptoms Stated Complaint: loss apetite, cough, low fluid intake Time Seen by Provider: 02/25/23 11:49 Source: patient and family Mode of arrival: Ambulatory Limitations: no limitations History of Present Illness HPI Narrative: 72-year-old female with history of chronic alcohol use, hypothyroidism and gastritis who presents with complaint of decreased energy, cough for the past 10 days no fevers reported. Patient denies any chest pain or pressure. She states she does not feel short of breath but her has noted she gets more short of breath when she tries to exert herself. She has had a dry nonproductive cough. They note that it lasts all night. She has been able to lay flat has not had any orthopnea reported. Patient states no nausea or vomiting. No other GI or urinary symptoms. Patient has occasional swelling in her feet but not persistently. Has been states she is somewhat decreased mobility but has been lying in bed pretty regularly for the past week. They both notes she does not walk around very much. She has had decreased oral intake with food and fluids. Patient is on levothyroxine, sucralfate, pantoprazole as her home medications. Denies any prior surgeries. Allergic to erythromycin base. No tobacco, 3 or 4 alcoholic drinks daily, has been notes she is tapered off in the last few days but still drinking regularly. No recreational drugs. Patient is accompanied by her . notes her blood pressure has a little bit lower than typical. He believes she typically runs systolic of 100. Related Data Home Medications Medication Instructions Recorded Confirmed levothyroxine 125 mcg tablet 150 mcg PO DAILY 05/04/22 02/25/23 Previous Rx's Medication Instructions Recorded pantoprazole 40 mg tablet,delayed 40 mg PO DAILY #60 tabs 07/05/21 release Allergies Allergy/AdvReac Type Severity Reaction Status Date / Time erythromycin base Allergy Severe lips Verified 02/25/23 10:18 swelled up Review of Systems Review of Systems ROS Unobtainable: All systems reviewed & are unremarkable except as noted in HPI and below Patient History Medical History Ankle fracture, left Hypothyroid Surgical History History of dental surgery Hx of tonsillectomy Social History household members: spouse Smoking Status: Never smoker alcohol intake: current Smoking Status: Never smoker alcohol intake frequency: 3 or more drinks per day Alcohol type: wine Substance Use Type: does not use Exam Narrative Exam Narrative: GEN: Thin elderly appearing female, alert and oriented x 3, patient appears to be in mild distress. HEENT: Atraumatic, pupils are equal round reactive to light, extraocular movements are intact, no scleral icterus noted, nares are clear, there is no conjunctival pallor. Throat is clear without any exudates, erythema, tonsillar enlargement or uvular deviation HEART: Regular rate and rhythm without murmur, clicks, rubs. Pulses are equal in upper and lower extremities LUNGS:Lungs clear to auscultation, no wheezes, patient has crackles in left lower base, no rhonchi, chest moves symmetrically, no tachypnea or accessory muscle use. Patient has persistent dry cough in the room. ABD:bowel sounds normal, soft, non-tender, no guarding, rebound, rigidity, no masses noted, no hepatosplenomegaly :No CVA tenderness MSCL: Non-tender, no muscle atrophy, muscles strength 5/5 upper and lower extremities, full range of motion. NEURO:CN 2-12 intact, sensation normal Initial Vital Signs Initial Vital Signs: Vital Signs Temperature 98.0 F 02/25/23 10:10 Pulse Rate 93 H 02/25/23 10:10 Respiratory Rate 23 02/25/23 10:10 Blood Pressure 99/69 02/25/23 10:10 Pulse Oximetry 94 02/25/23 10:10 Oxygen Delivery Method Room Air 02/25/23 10:10 Course Orders Ordered: ED Orders 02/25/23 12:04 XR chest 1V Stat RT Consult Eval and Treat NOW 02/25/23 12:10 Covid-19 + FLU A/B + RSV - PCR Stat 02/25/23 12:20 Complete Blood Count AUTO DIFF Stat Comprehensive Metabolic Panel Stat D Dimer Stat Hepatitis Acute Panel Stat Lactate (Lactic Acid) Stat NT-proBNP (BNP-Adult 18+) Stat Prothrombin Time INR Stat Troponin I Stat 02/25/23 12:24 ETOH [Ethanol (ETOH)] Stat 02/25/23 12:32 EKG-12 Lead Stat 02/25/23 12:52 CT chest abd pel w con Stat 02/25/23 14:13 Urine Culture Stat Urine Microscopic Stat Acetaminophen (Acetaminophen 325 Mg Tablet) 325 mg PO Q6H PRN PRN Reason: Fever/Mild Pain (1-3) Dexamethasone (Dexamethasone 10 Mg/Ml Vial) 6 mg IV DAILY [facility] Stop: 03/07/23 16:04 Last Admin: 02/25/23 18:10 Dose: 6 mg Documented By: BILL Enoxaparin Sodium (Enoxaparin 40 Mg/0.4 Ml Syringe) 40 mg SUBCUT DAILY [facility] Last Admin: 02/25/23 18:10 Dose: 40 mg Documented By: BILL Folic Acid (Folic Acid 1 Mg Tablet) 1 mg PO DAILY [facility] Sodium Chloride (Normal Saline 0.9%) 1,000 mls @ 125 mls/hr IV CONT [facility] Last Infusion: 02/25/23 16:18 Dose: 0 mls/hr Documented By: Admin: 02/25/23 14:30 Dose: 125 mls/hr Documented By: RB POTASSIUM CHLORIDE IN WATER (Potassium Cl 10 Meq/100 Ml Bhavani) 10 meq in 100 mls @ 100 mls/hr IV Q1H [facility] Stop: 02/26/23 00:59 Levothyroxine Sodium (Levothyroxine 125 Mcg Tablet) 125 mcg PO 0600 [facility] Lorazepam (Lorazepam 2 Mg/Ml Inj) 0 mg IV CIWAPRN PRN; Protocol PRN Reason: Alcohol Withdrawal Lorazepam (Lorazepam 1 Mg Tablet) 0 mg PO CIWAPRN PRN; Protocol PRN Reason: Alcohol Withdrawal Melatonin (Melatonin 3 Mg Tablet) 6 mg PO BEDTIME PRN PRN Reason: Insomnia Metoclopramide HCl (Metoclopramide 10 Mg/2 Ml Inj) 5 mg IV Q6HR PRN PRN Reason: Nausea And Vomiting Multivitamins (Multivitamin 1 Tablet) 1 tab PO DAILY [facility] Naloxone HCl (Naloxone 0.4 Mg/Ml Vial) 0.2 mg IV Q2MIN PRN PRN Reason: Opiate Reversal Ondansetron HCl (Ondansetron 4 Mg/2 Ml Inj) 4 mg IV Q4HR PRN PRN Reason: Nausea And Vomiting Pantoprazole Sodium (Pantoprazole Dr 40 Mg Tablet) 40 mg PO 0700 [facility] Thiamine HCl (Thiamine 100 Mg Tablet) 100 mg PO DAILY [facility] Stop: 03/01/23 09:01 Discontinued Medications Chlordiazepoxide HCl (Chlordiazepoxide 25 Mg Capsule) 50 mg PO Q6HR [facility] Sodium Chloride (Normal Saline 0.9%) 1,000 mls @ 1,000 mls/hr IV BOLUS ONE Stop: 02/25/23 13:10 Last Infusion: 02/25/23 13:08 Dose: Infused Documented By: Admin: 02/25/23 12:28 Dose: 1,000 mls/hr Documented By: RB POTASSIUM CHLORIDE IN WATER (Potassium Cl 10 Meq/100 Ml Bhavani) 10 meq in 100 mls @ 100 mls/hr IV Q1H [facility] Stop: 02/25/23 16:59 Last Admin: 02/25/23 17:38 Dose: 100 mls/hr Documented By: Infusion: 02/25/23 17:14 Dose: Infused Documented By: Infusion: 02/25/23 16:14 Dose: 100 mls/hr Documented By: Admin: 02/25/23 16:14 Dose: 100 mls/hr Documented By: Infusion: 02/25/23 16:14 Dose: Infused Documented By: Admin: 02/25/23 15:20 Dose: 100 mls/hr Documented By: Infusion: 02/25/23 15:20 Dose: Infused Documented By: Infusion: 02/25/23 14:26 Dose: 100 mls/hr Documented By: Infusion: 02/25/23 13:21 Dose: 0 mls/hr Documented By: Infusion: 02/25/23 13:20 Dose: 100 mls/hr Documented By: Infusion: 02/25/23 13:20 Dose: 0 mls/hr Documented By: Admin: 02/25/23 13:16 Dose: 100 mls/hr Documented By: KB POTASSIUM CHLORIDE IN WATER (Potassium Cl 10 Meq/100 Ml Bhavani) 10 meq in 100 mls @ 100 mls/hr IV Q1H [facility] Stop: 02/25/23 21:59 NOREPINEPHRINE BITARTRATE/D5W (Levophed) 4 mg in 250 mls @ 18.03 mls/hr IV TITRATE [facility]; Protocol POTASSIUM CHLORIDE IN WATER (Potassium Cl 10 Meq/100 Ml Bhavani) 10 meq in 100 mls @ 100 mls/hr IV Q1H [facility] Stop: 02/25/23 22:59 Metoclopramide HCl (Metoclopramide 10 Mg/2 Ml Inj) 10 mg IV Q6HR PRN PRN Reason: Nausea And Vomiting Potassium Chloride (Potassium Chloride 20 Meq/15 Ml Udc) 40 meq PO NOW ONE Stop: 02/25/23 12:54 Last Admin: 02/25/23 13:15 Dose: 40 meq Documented By: ANITA Vital Signs Vital signs: Vital Signs - 8 hr 02/25/23 10:30 02/25/23 10:30 02/25/23 10:45 Pulse Rate 90 89 Respiratory Rate Blood Pressure 100/65 Pulse Oximetry 90 L 91 Oxygen Delivery Method Room Air Room Air Oxygen Flow Rate 02/25/23 10:45 02/25/23 11:00 02/25/23 11:00 Pulse Rate 91 H Respiratory Rate Blood Pressure 103/66 99/63 Pulse Oximetry 94 Oxygen Delivery Method Room Air Oxygen Flow Rate 02/25/23 11:15 02/25/23 11:15 02/25/23 11:19 Pulse Rate 88 88 Respiratory Rate Blood Pressure 93/65 Pulse Oximetry 96 95 Oxygen Delivery Method Room Air Room Air Oxygen Flow Rate 02/25/23 11:30 02/25/23 11:32 02/25/23 11:45 Pulse Rate 88 89 Respiratory Rate Blood Pressure 95/66 Pulse Oximetry Oxygen Delivery Method Oxygen Flow Rate 02/25/23 11:45 02/25/23 12:00 02/25/23 12:00 Pulse Rate 90 Respiratory Rate Blood Pressure 95/67 88/63 L Pulse Oximetry 89 L Oxygen Delivery Method Room Air Oxygen Flow Rate 02/25/23 12:21 02/25/23 12:21 02/25/23 12:30 Pulse Rate 85 Respiratory Rate 31 H Blood Pressure 96/67 98/60 Pulse Oximetry 93 Oxygen Delivery Method Nasal Cannula Oxygen Flow Rate 1 02/25/23 12:30 02/25/23 12:45 02/25/23 12:45 Pulse Rate 87 81 Respiratory Rate 40 H 31 H Blood Pressure 91/59 L Pulse Oximetry 93 91 Oxygen Delivery Method Nasal Cannula Nasal Cannula Oxygen Flow Rate 1 02/25/23 13:00 02/25/23 13:15 02/25/23 13:15 Pulse Rate 85 88 Respiratory Rate 32 H Blood Pressure 86/55 L Pulse Oximetry 90 L 92 Oxygen Delivery Method Nasal Cannula Nasal Cannula Oxygen Flow Rate 1 02/25/23 13:30 02/25/23 13:30 02/25/23 13:45 Pulse Rate 95 H 96 H Respiratory Rate 31 H 30 H Blood Pressure 92/64 Pulse Oximetry 92 91 Oxygen Delivery Method Nasal Cannula Nasal Cannula Oxygen Flow Rate 1 1 02/25/23 13:45 02/25/23 14:00 02/25/23 14:00 Pulse Rate 93 H Respiratory Rate 31 H Blood Pressure 87/59 L 91/67 Pulse Oximetry 93 Oxygen Delivery Method Nasal Cannula Oxygen Flow Rate 1 02/25/23 14:15 02/25/23 14:15 02/25/23 14:30 Pulse Rate 94 H 93 H Respiratory Rate 41 H 35 H Blood Pressure 96/68 Pulse Oximetry 94 95 Oxygen Delivery Method Nasal Cannula Nasal Cannula Oxygen Flow Rate 2 2 02/25/23 14:30 02/25/23 14:45 02/25/23 14:45 Pulse Rate 89 Respiratory Rate 31 H Blood Pressure 99/67 91/63 Pulse Oximetry 94 Oxygen Delivery Method Nasal Cannula Oxygen Flow Rate 2 MDM - SOB/Dyspnea Lab Data 02/25/23 12:20 02/25/23 12:20 Labs: Lab Results 02/25/23 02/25/23 02/25/23 Range/Units 12:10 12:20 12:24 WBC 10.7 (4.5-11.0) X10^3/uL RBC 4.04 (4.0-5.2) X10^6/uL Hgb 14.4 (12.0-16.0) g/dL Hct 41.5 (36-46) % MCV 102.5 H (80-100) fL MCH 35.7 H (26-34) PG MCHC 34.8 (30-36) % RDW 13.8 (11.6-14.8) % Plt Count 221 (150-400) X10^3/uL Neut % (Auto) 78.2 H (50-75) % Lymph % (Auto) 11.5 L (25-40) % Webb % (Auto) 9.0 (3-14) % Eos % (Auto) 0.8 L (2-4) % Baso % (Auto) 0.5 (0-2) % Neut # (Auto) 8400 H (8164-6127) /uL Lymph # (Auto) 1200 (4189-8162) /uL Webb # (Auto) 1000 H (0-900) /uL Eos # (Auto) 100 (0-450) /uL Baso # (Auto) 0 (0-100) /uL PT 17.4 H (9.4-12.5) SECONDS INR 1.5 H (0.9-1.3) D-Dimer 1174 H (<500) ng/ml Sodium 128 L (137-145) mmol/L Potassium 2.5 L* (3.4-5.1) mmol/L Chloride 87 L (98-107) mmol/L Carbon Dioxide 36 H (22-32) mmol/L BUN 8 (7-17) mg/dL Creatinine 0.48 L (0.52-1.04) mg/dL Estimated GFR > 60 (>60) mL/min BUN/Creatinine Ratio 16.7 (6-22) Glucose 105 (80-110) mg/dL Lactate 2.5 H (0.7-2.1) mmol/L Calcium 8.2 L (8.4-10.2) mg/dL Total Bilirubin 5.1 H (0.2-1.3) mg/dL AST 136 H (14-36) IU/L ALT 54 H (<35) IU/L Alkaline Phosphatase 158 H (38-126) U/L Troponin I < 0.012 (0.01-0.034) ng/mL NT-Pro-B Natriuret Pep 1990 H (<125) pg/mL Total Protein 5.6 L (6.3-8.2) g/dL Albumin 2.6 L (3.5-5.0) g/dL Globulin 3.0 (1.7-4.1) g/dL Albumin/Globulin Ratio 0.9 L (1.0-2.8) Urine RBC (0-5/HPF) Urine WBC (0-5/HPF) Ur Squamous Epith Cells (0-5/HPF) Urine Bacteria (None) Ur Culture Indicated? Ethyl Alcohol < 10 ( - 10) mg/dL SARS-CoV-2 (PCR) Positive H (Negative) Influenza A (RT-PCR) Flu a negative (NEGATIVE) Influenza B (RT-PCR) Flu b negative (NEGATIVE) RSV (PCR) Negative (Negative) 02/25/23 02/25/23 Range/Units 14:13 14:25 WBC (4.5-11.0) X10^3/uL RBC (4.0-5.2) X10^6/uL Hgb (12.0-16.0) g/dL Hct (36-46) % MCV (80-100) fL MCH (26-34) PG MCHC (30-36) % RDW (11.6-14.8) % Plt Count (150-400) X10^3/uL Neut % (Auto) (50-75) % Lymph % (Auto) (25-40) % Webb % (Auto) (3-14) % Eos % (Auto) (2-4) % Baso % (Auto) (0-2) % Neut # (Auto) (4301-8457) /uL Lymph # (Auto) (2721-9217) /uL Webb # (Auto) (0-900) /uL Eos # (Auto) (0-450) /uL Baso # (Auto) (0-100) /uL PT (9.4-12.5) SECONDS INR (0.9-1.3) D-Dimer (<500) ng/ml Sodium (137-145) mmol/L Potassium (3.4-5.1) mmol/L Chloride (98-107) mmol/L Carbon Dioxide (22-32) mmol/L BUN (7-17) mg/dL Creatinine (0.52-1.04) mg/dL Estimated GFR (>60) mL/min BUN/Creatinine Ratio (6-22) Glucose (80-110) mg/dL Lactate 2.9 H (0.7-2.1) mmol/L Calcium (8.4-10.2) mg/dL Total Bilirubin (0.2-1.3) mg/dL AST (14-36) IU/L ALT (<35) IU/L Alkaline Phosphatase (38-126) U/L Troponin I (0.01-0.034) ng/mL NT-Pro-B Natriuret Pep (<125) pg/mL Total Protein (6.3-8.2) g/dL Albumin (3.5-5.0) g/dL Globulin (1.7-4.1) g/dL Albumin/Globulin Ratio (1.0-2.8) Urine RBC 0-1/hpf (0-5/HPF) Urine WBC 1-5/hpf (0-5/HPF) Ur Squamous Epith Cells 0-1 /hpf (0-5/HPF) Urine Bacteria Few (2-10) H (None) Ur Culture Indicated? Specimen cultured Ethyl Alcohol ( - 10) mg/dL SARS-CoV-2 (PCR) (Negative) Influenza A (RT-PCR) (NEGATIVE) Influenza B (RT-PCR) (NEGATIVE) RSV (PCR) (Negative) Imaging Data Chest x-ray: Radiologist's Impression: [address] [address] XRay Report Signed Patient: Cindy Collins MR#: [id number] : 1950 Acct:[id number] Age/Sex: 72 / F Date of Service: 02/25/23 Loc: ED Accession Number: [id number] Procedure: XR chest 1V Ordering Provider: Tracey Mcnamara D.O. PROCEDURE: XR CHEST 1V INDICATIONS: Shortness of breath TECHNIQUE: One view of the chest was acquired. COMPARISON: [facility], , XR CHEST 1V, 07/03/2021, 19:33. FINDINGS: Surgical changes and devices: None. Lungs and pleura: Moderate to large right pleural effusion. Right basilar consolidation. Mediastinum: Mediastinal contours appear normal. Heart size is normal. Bones and chest wall: No suspicious bony lesions. Overlying soft tissues appear unremarkable. IMPRESSION: Moderate to large right pleural effusion. Right basilar consolidation which could represent atelectasis, aspiration or pneumonia. Dictated by: Karli Epps MD, PhD on 02/25/2023 at 12:32 Approved by: Karli Epps MD, PhD on 02/25/2023 at 12:33 ECG Data Attestation: I personally reviewed and interpreted this ECG as follows: Prior ECG tracings: available for review Interpretation: Junctional to tell if there is P waves every QRS, rate 83 QRS is 66, [place] 430. Nonspecific change. Prior to EKG from 05/05/2019 show QRS appears flipped in 3 and aVL. MDM Narrative Medical decision making narrative: 72-year-old female with chronic alcohol use, hypothyroidism, GERD and gastritis history with recent of decreased appetite, dry cough, decreased energy for the past 10 days. Patient is hypotensive although per her she runs around 100 systolic she has bounced between 80 and 100 here in the department. Occasionally has short periods it 88-89% O2. Has a chronic dry persistent cough in the room with crackles in her left base. Plan for workup for infectious versus cardiac, pulmonary edema, embolic source of symptoms. Labs normal hemoglobin 14 consistent with priors white count of 10, macrocytosis which has been persistent over time platelets of 221. INR is 1.5, likely elevated secondary to patient's cirrhosis and alcohol use. D-dimer is 1174. Patient has hyponatremia worse from prior visits, hypokalemic at 2.5, chloride 87 CO2 of 36 with a BUN 8 creatinine 0.48. Lactate 2.5 with an elevation of 2.9 repeat. Bilirubin is 5.1 elevated from prior visits AST is 136, ALT is 54 and alk-phos is 158. Patient's has been states her LFTs have been elevated in the past. Troponins negative at 0.012 with a BNP of 1990. ETOH is negative. Hepatitis panel was sent. Patient is COVID positive, negative for influenza and RSV. EKG shows nonspecific change. Chest x-ray, shows moderte to large pleural effusion on the right. right basilar consolidation which could represent atelectasis, aspiration or pneumonia. CT chest abdomen pelvis was obtained secondary to large pleural effusion but also elevation in liver enzymes. Patient has a large new right pleural effusion causing compressive atelectasis of much of the right lung no empyema or malignancy noted diffuse fatty infiltration further progressed to becoming heterogenous no associated hepatic mass or splenomegaly developed slight SCDs deep in the pelvis with an incidental 1.9 mid pancreatic body cyst not present in June of 2021. Patient has images from June 2021 that do not show pleural effusion but none in the interim. Suspect some of these changes have been longstanding but with recent COVID infection hypoxia likely pleural effusion is the main culprit but patient has changes in LFTs and unclear reason for patient's effusion spoke with Dr. Rodriguez along with the electrolyte abnormalities who accepts for inpatient. We did discuss had ordered D-dimer but had ordered CT chest and pelvis with contrast prior to result and fall unlikely to be pulmonary emboli as main source and we will hold off on rescanning for CT angio at this time. Patient is normally systolic pressure according to has been around 100 has been a little bit low so received a L of fluid. Also given potassium, possible EKG changes. Patient on 2 L nasal cannula. Discharge Plan Departure Patient Disposition: Admitted As Inpatient Clinical Impression: Pleural effusion, Hypokalemia, Hyponatremia, COVID-19 virus infection, Cirrhosis Admit Date/Time: 02/25/23 15:47 Admit Provider: Ricky Rodriguez
[2023-02-25 12:28] LABS: Add Manual Diff / Slide Review NO; Basophils Absolute Auto 0 /uL (0-100); Basophils Percent Auto 0.5 % (0-2); Eosinophils Absolute Auto 100 /uL (0-450); Eosinophils Percent Auto 0.8 % (2-4); Hematocrit 41.5 % (36-46); Hemoglobin 14.4 g/dL (12.0-16.0); Lymphocytes Absolute Auto 1200 /uL (1100-4500); Lymphocytes Percent Auto 11.5 % (25-40); Mean Corpuscular HGB Conc 34.8 % (30-36); Mean Corpuscular Hemoglobin 35.7 PG (26-34); Mean Corpuscular Volume 102.5 fL (80-100); Monocytes Absolute Auto 1000 /uL (0-900); Neutrophils Absolute Auto 8400 /uL (1500-7000); Neutrophils Percent Auto 78.2 % (50-75); Platelet Count 221 X10^3/uL (150-400); Red Blood Cell Count 4.04 X10^6/uL (4.0-5.2); Red Cell Distribution Width 13.8 % (11.6-14.8); White Blood Cell Count 10.7 X10^3/uL (4.5-11.0)
[2023-02-25] MEDS: SODIUM CHLORIDE 0.9% 1,000 ML 1000 ML IV (12:28)
[2023-02-25 12:39] LABS: INR 1.5 (0.9-1.3); Prothrombin Time 17.4 SECONDS (9.4-12.5)
[2023-02-25 12:44] LABS: Alanine Aminotransferase 54 IU/L (<35); Albumin 2.6 g/dL (3.5-5.0); Albumin Globulin Ratio 0.9 (1.0-2.8); Alkaline Phosphatase 158 U/L (38-126); Aspartate Aminotransferase 136 IU/L (14-36); BUN Creatinine Ratio 16.7 (6-22); Bilirubin Total 5.1 mg/dL (0.2-1.3); Blood Urea Nitrogen 8 mg/dL (7-17); Calcium 8.2 mg/dL (8.4-10.2); Carbon Dioxide 36 mmol/L (22-32); Chloride 87 mmol/L (98-107); Estimated Glomerular Filt Rate > 60 mL/min (>60); Glucose 105 mg/dL (80-110); HEMOLYSIS < 15 (0-50); Lactate (Lactic Acid) 2.5 mmol/L (0.7-2.1); Sodium 128 mmol/L (137-145); Total Protein 5.6 g/dL (6.3-8.2)
[2023-02-25 12:46] LABS: Potassium 2.5 mmol/L (3.4-5.1)
--- NOTE | 2023-02-25 12:52 | DI.CT.S_ITS ---
PROCEDURE: CT CHEST ABD PEL W CON INDICATIONS: large R pleural effusion, elevated LFTs, etoh abuse, ?ascite TECHNIQUE: After the administration of intravenous contrast, 5 mm thick sections acquired from the lung apices to the symphysis. 5 mm coronal and sagittal reformats were performed, with additional 7 mm MIP reformats through the lungs. For radiation dose reduction, the following was used: automated exposure control, adjustment of mA and/or kV according to patient size. COMPARISON: Merged With [facility], CT, CT ABDOMEN PELVIS W CON, 07/03/2021, 16:48. Merged With [facility], CR, XR CHEST 1V, 07/03/2021, 19:33. FINDINGS: Image quality: Excellent. CHEST: Lower Neck: No enlarged lymph nodes. Thyroid: No thyroid nodules which require sonographic follow up, per consensus guidelines. Axillae: No enlarged lymph nodes. Chest Wall: Unremarkable. Lungs and Pleura: No pneumothorax but there is a very large right pleural effusion. No consolidation or suspicious nodules but the large right effusion causes compressive dense atelectasis at much of the right lung. Heart: Heart size is normal. No pericardial effusion. Thoracic Vessels: The aorta and pulmonary arteries demonstrate normal size. Mediastinum and Rin: No enlarged lymph nodes. Esophagus: No wall thickening. No hiatal hernia. ABDOMEN: Liver: No solid mass. There is marketed heterogeneity of of the liver parenchyma including numerous scattered areas of low attenuation likely reflecting severe multifocal fatty infiltration. A discrete hepatic mass lesion or splenomegaly is not seen, however. Gallbladder: No radiopaque gallstones or wall thickening. Biliary ducts: No biliary dilation. Pancreas: No ductal dilation. A 1.9 cm midbody new water density simple appearing pancreatic cyst is present. Spleen: Size is within normal limits. Adrenal Glands: No adrenal nodules. Kidneys and Ureters: No hydronephrosis. No solid mass. No complex renal cystic lesion which requires follow up. Stomach and Bowel: Normal colonic caliber, without significant wall thickening. Peritoneum: No abnormal intraperitoneal fluid. No free air. Ventral Wall: No hernia. Abdominal Nodes: No retroperitoneal or mesenteric adenopathy by size criteria. Vessels: Aorta and inferior vena cava are normal in size. PELVIS: Pelvic Organs: Unremarkable. Bladder: Unremarkable. Pelvic Nodes: No enlarged lymph nodes. Miscellaneous: No inguinal hernias are seen. New slight ascites deep within the lower pelvis. Bones: Unremarkable. IMPRESSION: Large new right pleural effusion causing compressive atelectasis at much of the right lung. No evidence of empyema or malignancy as the underlying cause, from this study. Previously documented severe diffuse fatty infiltration has further progressed and become heterogeneous. An associated hepatic mass lesion or splenomegaly has not developed. New slight ascites is present deep within the pelvis. Incidental note is made of a 1.9 cm mid pancreatic body cyst not present in June of 2021. Dictated by: Iglesia Amaya M.D. on 02/25/2023 at 14:08 Approved by: Iglesia Amaya M.D. on 02/25/2023 at 14:14
[2023-02-25 12:55] LABS: Influenza A - CEPHEID Flu A NEGATIVE (NEGATIVE); Influenza B - CEPHEID Flu B NEGATIVE (NEGATIVE); Respiratory Syncytial Virus Negative (Negative)
[2023-02-25 12:55] LABS: NT-proBNP (BNP-Adult 18+) 1990 pg/mL (<125); Troponin I < 0.012 ng/mL (0.01-0.034)
[2023-02-25 12:56] LABS: COVID-19 CEPHEID 4-PLEX PCR POSITIVE (Negative)
[2023-02-25 13:05] LABS: D Dimer 1174 ng/ml (<500)
[2023-02-25] MEDS: POTASSIUM CHLORIDE 20 MEQ/15 ML UDC 40 MEQ PO (13:15)
[2023-02-25] MEDS: POTASSIUM CHLORIDE IN WATER 10 MEQ/100 ML PIGGYBACK 100 MEQ IV ×9 (13:16→23:21)
[2023-02-25 13:40] LABS: Ethanol (ETOH) < 10 mg/dL
[2023-02-25 14:06] LABS: Reflexed Lactate in 2 Hours Y
[2023-02-25 14:22] LABS: Bacteria Urine Few (2-10); Culture Indicated Urine Specimen Cultured; RBC Urine 0-1/HPF (0-5/HPF); Squamous Epithelial Cell Urine 0-1 /HPF (0-5/HPF); WBC Urine 1-5/HPF (0-5/HPF)
[2023-02-25] MEDS: SODIUM CHLORIDE 0.9% 1,000 ML 125 ML IV (14:30)
[2023-02-25 14:40] LABS: Lactate 2HR (Lactic Acid Rflx) 2.9 mmol/L (0.7-2.1)
--- NOTE | 2023-02-25 16:42 | PM.HP.1 ---
History of Present Illness History of Present Illness Date Patient Seen: 02/25/23 Chief complaint: loss apetite, cough, low fluid intake Narrative: Cindy Kent is a 72yo F with PMH of alcoholism, hypothyroidism, GERD, and mild cog impairment who presents with fatigue, cough, sore throat and SOB. History mostly obtained from who is at bedside. He states she has been drinking several drinks of alcohol daily for quite some time, which they have seen GI about and she is not ready to quit. She has known cirrhosis of her liver from this and she is still not motivated to quit. Her noted he recently tested positive for COVID, then she began having symptoms including cough and sore throat. She doesn't eat solid food very much and has low weight. He thinks she is malnourished. She then laid in bed for 2 days and was not drinking much fluids so he was worried she was dehydrated. Last alcoholic drink was 2 days ago. says she has gotten progressively short of breath as well. Patient denies any symptoms really other than slight sore throat and cough. Denies CP, NV, abd pain or diarrhea. [facility] Medical History Ankle fracture, left Hypothyroid Surgical History History of dental surgery Hx of tonsillectomy Social History household members: spouse Smoking Status: Never smoker alcohol intake: current Meds Home Medications and Allergies Home Medications Medication Instructions Recorded Confirmed Type pantoprazole 40 mg tablet,delayed 40 mg PO DAILY #60 tabs 07/05/21 02/25/23 Rx release levothyroxine 125 mcg tablet 150 mcg PO DAILY 05/04/22 02/25/23 History Allergies Allergy/AdvReac Type Severity Reaction Status Date / Time erythromycin base Allergy Severe lips Verified 02/25/23 10:18 swelled up Review of Systems Review of Systems Narrative: All other systems reviewed with the patient and are negative unless otherwise stated. Exam Vital Signs (past 8 hours): - 02/25/23 10:10 02/25/23 10:17 02/25/23 10:17 Temperature 98.0 F Pulse Rate 93 H 103 H Respiratory Rate 23 Blood Pressure 99/69 99/69 Pulse Oximetry 94 94 Oxygen Delivery Method Room Air Room Air Oxygen Flow Rate 02/25/23 10:30 02/25/23 10:30 02/25/23 10:45 Temperature Pulse Rate 90 89 Respiratory Rate Blood Pressure 100/65 Pulse Oximetry 90 L 91 Oxygen Delivery Method Room Air Room Air Oxygen Flow Rate 02/25/23 10:45 02/25/23 11:00 02/25/23 11:00 Temperature Pulse Rate 91 H Respiratory Rate Blood Pressure 103/66 99/63 Pulse Oximetry 94 Oxygen Delivery Method Room Air Oxygen Flow Rate 02/25/23 11:15 02/25/23 11:15 02/25/23 11:19 Temperature Pulse Rate 88 88 Respiratory Rate Blood Pressure 93/65 Pulse Oximetry 96 95 Oxygen Delivery Method Room Air Room Air Oxygen Flow Rate 02/25/23 11:30 02/25/23 11:32 02/25/23 11:45 Temperature Pulse Rate 88 89 Respiratory Rate Blood Pressure 95/66 Pulse Oximetry Oxygen Delivery Method Oxygen Flow Rate 02/25/23 11:45 02/25/23 12:00 02/25/23 12:00 Temperature Pulse Rate 90 Respiratory Rate Blood Pressure 95/67 88/63 L Pulse Oximetry 89 L Oxygen Delivery Method Room Air Oxygen Flow Rate 02/25/23 12:21 02/25/23 12:21 02/25/23 12:30 Temperature Pulse Rate 85 Respiratory Rate 31 H Blood Pressure 96/67 98/60 Pulse Oximetry 93 Oxygen Delivery Method Nasal Cannula Oxygen Flow Rate 1 02/25/23 12:30 02/25/23 12:45 02/25/23 12:45 Temperature Pulse Rate 87 81 Respiratory Rate 40 H 31 H Blood Pressure 91/59 L Pulse Oximetry 93 91 Oxygen Delivery Method Nasal Cannula Nasal Cannula Oxygen Flow Rate 1 1 02/25/23 13:00 02/25/23 13:15 02/25/23 13:15 Temperature Pulse Rate 85 88 Respiratory Rate 32 H Blood Pressure 86/55 L Pulse Oximetry 90 L 92 Oxygen Delivery Method Nasal Cannula Nasal Cannula Oxygen Flow Rate 1 1 02/25/23 13:30 02/25/23 13:30 02/25/23 13:45 Temperature Pulse Rate 95 H 96 H Respiratory Rate 31 H 30 H Blood Pressure 92/64 Pulse Oximetry 92 91 Oxygen Delivery Method Nasal Cannula Nasal Cannula Oxygen Flow Rate 1 1 02/25/23 13:45 02/25/23 14:00 02/25/23 14:00 Temperature Pulse Rate 93 H Respiratory Rate 31 H Blood Pressure 87/59 L 91/67 Pulse Oximetry 93 Oxygen Delivery Method Nasal Cannula Oxygen Flow Rate 1 02/25/23 14:15 02/25/23 14:15 02/25/23 14:30 Temperature Pulse Rate 94 H 93 H Respiratory Rate 41 H 35 H Blood Pressure 96/68 Pulse Oximetry 94 95 Oxygen Delivery Method Nasal Cannula Nasal Cannula Oxygen Flow Rate 2 2 02/25/23 14:30 02/25/23 14:45 02/25/23 14:45 Temperature Pulse Rate 89 Respiratory Rate 31 H Blood Pressure 99/67 91/63 Pulse Oximetry 94 Oxygen Delivery Method Nasal Cannula Oxygen Flow Rate 2 Oxygen Delivery Method Nasal Cannula Oxygen Flow Rate 2 Narrative Exam Narrative: GEN: no acute distress, thin, dismissive HEENT: moist mucous membranes, PERRL NECK: trachea midline, no JVD CV: regular rate and rhythm, no murmurs PULM: decreased breath sounds on right ABD: soft, nontender, nondistended, no organomegaly EXT: warm and well perfused with no edema NEURO: awake, alert, A/Ox2.5, no focal deficits Objective Labs 02/25/23 12:20 02/25/23 12:20 Labs: Laboratory Results - last 24 hr 02/25/23 02/25/23 02/25/23 12:10 12:20 12:24 WBC 10.7 RBC 4.04 Hgb 14.4 Hct 41.5 MCV 102.5 H MCH 35.7 H MCHC 34.8 RDW 13.8 Plt Count 221 Neut % (Auto) 78.2 H Lymph % (Auto) 11.5 L Lincoln % (Auto) 9.0 Eos % (Auto) 0.8 L Baso % (Auto) 0.5 Neut # (Auto) 8400 H Lymph # (Auto) 1200 Lincoln # (Auto) 1000 H Eos # (Auto) 100 Baso # (Auto) 0 PT 17.4 H INR 1.5 H D-Dimer 1174 H Sodium 128 L Potassium 2.5 L* Chloride 87 L Carbon Dioxide 36 H BUN 8 Creatinine 0.48 L Estimated GFR > 60 BUN/Creatinine Ratio 16.7 Glucose 105 Lactate 2.5 H Calcium 8.2 L Total Bilirubin 5.1 H AST 136 H ALT 54 H Alkaline Phosphatase 158 H Troponin I < 0.012 NT-Pro-B Natriuret Pep 1990 H Total Protein 5.6 L Albumin 2.6 L Globulin 3.0 Albumin/Globulin Ratio 0.9 L Urine RBC Urine WBC Ur Squamous Epith Cells Urine Bacteria Ur Culture Indicated? Ethyl Alcohol < 10 SARS-CoV-2 (PCR) Positive H Influenza A (RT-PCR) Flu a negative Influenza B (RT-PCR) Flu b negative RSV (PCR) Negative 02/25/23 02/25/23 14:13 14:25 WBC RBC Hgb Hct MCV MCH MCHC RDW Plt Count Neut % (Auto) Lymph % (Auto) Lincoln % (Auto) Eos % (Auto) Baso % (Auto) Neut # (Auto) Lymph # (Auto) Lincoln # (Auto) Eos # (Auto) Baso # (Auto) PT INR D-Dimer Sodium Potassium Chloride Carbon Dioxide BUN Creatinine Estimated GFR BUN/Creatinine Ratio Glucose Lactate 2.9 H Calcium Total Bilirubin AST ALT Alkaline Phosphatase Troponin I NT-Pro-B Natriuret Pep Total Protein Albumin Globulin Albumin/Globulin Ratio Urine RBC 0-1/hpf Urine WBC 1-5/hpf Ur Squamous Epith Cells 0-1 /hpf Urine Bacteria Few (2-10) H Ur Culture Indicated? Specimen cultured Ethyl Alcohol SARS-CoV-2 (PCR) Influenza A (RT-PCR) Influenza B (RT-PCR) RSV (PCR) Assessment & Plan Assessment & Plan narrative: # hypoxic respiratory failure -likely secondary to COVID and large R pleural effusion compressing lung -will perform diag/therapeutic thoracentesis to determine etiology -effusion likely from liver cirrhosis, can't rule out malignancy -requiring 2L, wean as able -will give decadron daily due to hypoxia, cannot use remdesivir with transaminitis # acute alcoholic hepatitis -Maddrey's 29.9 so doesn't quite warrant steroids -LFT's, INR and T-bili elevated, will trend # lactic acidemia -LA 2.5, then 2.9 -continue IVF # COVID positive -patient notes sore throat - also recently tested positive # daily alcohol use -drinks 4 beverages daily - working on cutting it down to 1 drink daily, but patient not motivated to quit -CIWA, but last drink 2 days ago so likely out of withdrawal window # mild cognitive impairment -patient incorrectly stated month, but knew the year and her location - notes more forgetfulness, and they have outpatient neurology appt coming up # hypothyroidism -check TSH -continue synthroid # hypokalemia -replete PRN # malnutrition -dietary consult Code status is full code. DVT prophylaxis with Lovenox. Proxy is Allen. I have reviewed home meds and used all available resources to reconcile the home meds. Case discussed with ED physician/APC and patient will be admitted to the hospitalist service for further workup and management. This patient will be admitted as inpatient and will require greater than 2 midnights of hospital time to treat hypoxic respiratory failure. COVID-19 COVID-19 status: Positive
[2023-02-25 17:03] LABS: Lactate (Lactic Acid) 2.4 mmol/L (0.7-2.1); Magnesium 1.8 mg/dL (1.6-2.3)
[2023-02-25 17:20] LABS: Procalcitonin 0.33 ng/mL (<0.5)
[2023-02-25] MEDS: ENOXAPARIN 40 MG/0.4 ML SYRINGE SUBCUT (18:10)
[2023-02-25] MEDS: DEXAMETHASONE 10 MG/ML VIAL 6 MG IV (18:10)
[2023-02-25 18:27] LABS: Reflexed Lactate in 2 Hours Y
--- NOTE | 2023-02-25 19:00 | PC.NURSE ---
admitted pt from ED w/ Allen at bedside; reports pt is forgetful and has problems with diet and mobility; he also reports that pt has 3-4 drinks/day but has not had a drink in 2 days; she is not demonstrating any signs of withdrawal; CIWA-0; pt's K level 2.5; to receive a total of 10 k-riders; she is going to have a thoracentesis by Dr Rodriguez tomorrow afternoon
[2023-02-26] VITALS (31 sets, daily range): BP systolic 85–102; BP diastolic 55–69; PULSE 60–89; RESP 16–57; TEMP 36.2–36.4; O2SAT 91–95
[2023-02-26] MEDS: POTASSIUM CHLORIDE IN WATER 10 MEQ/100 ML PIGGYBACK 100 MEQ IV (00:32)
[2023-02-26] MEDS: SODIUM CHLORIDE 0.9% 1,000 ML 125 ML IV ×3 (05:50→22:19)
[2023-02-26 06:13] LABS: HBsAg Screen Negative (Negative); Hepatitis A Antibody IgM Negative (Negative); Hepatitis B Core Antibody IgM Negative (Negative); Hepatitis C Antibody Non Reactive (Non Reactive)
[2023-02-26] MEDS: LEVOTHYROXINE 125 MCG TABLET PO (06:14)
[2023-02-26] MEDS: PANTOPRAZOLE DR 40 MG TABLET PO (06:14)
[2023-02-26 06:32] LABS: Add Manual Diff / Slide Review NO; Basophils Absolute Auto 0 /uL (0-100); Basophils Percent Auto 0.3 % (0-2); Eosinophils Absolute Auto 0 /uL (0-450); Eosinophils Percent Auto 0.1 % (2-4); Hematocrit 40.5 % (36-46); Hemoglobin 13.8 g/dL (12.0-16.0); Lymphocytes Absolute Auto 900 /uL (1100-4500); Lymphocytes Percent Auto 20.3 % (25-40); Mean Corpuscular Hemoglobin 35.8 PG (26-34); Mean Corpuscular Volume 105.3 fL (80-100); Monocytes Absolute Auto 300 /uL (0-900); Monocytes Percent Auto 5.6 % (3-14); Neutrophils Absolute Auto 3300 /uL (1500-7000); Neutrophils Percent Auto 73.7 % (50-75); Platelet Count 162 X10^3/uL (150-400); Red Blood Cell Count 3.84 X10^6/uL (4.0-5.2); Red Cell Distribution Width 14.4 % (11.6-14.8); White Blood Cell Count 4.5 X10^3/uL (4.5-11.0)
[2023-02-26 06:37] LABS: Alanine Aminotransferase 48 IU/L (<35); Albumin 2.1 g/dL (3.5-5.0); Albumin Globulin Ratio 0.8 (1.0-2.8); Alkaline Phosphatase 131 U/L (38-126); Aspartate Aminotransferase 103 IU/L (14-36); BUN Creatinine Ratio 14.3 (6-22); Bilirubin Total 2.8 mg/dL (0.2-1.3); Blood Urea Nitrogen 6 mg/dL (7-17); Calcium 7.2 mg/dL (8.4-10.2); Carbon Dioxide 29 mmol/L (22-32); Chloride 100 mmol/L (98-107); Estimated Glomerular Filt Rate > 60 mL/min (>60); Globulin 2.7 g/dL (1.7-4.1); Glucose 120 mg/dL (80-110); HEMOLYSIS < 15 (0-50); Potassium 4.1 mmol/L (3.4-5.1); Sodium 131 mmol/L (137-145); Total Protein 4.8 g/dL (6.3-8.2)
--- NOTE | 2023-02-26 06:52 | PC.NURSE ---
Patient resting in bed all shift. Has pure wick for voiding. q2hr turn. started to get confused the later the time was but was cooperative.
[2023-02-26 08:09] LABS: TSH w/ Reflex to FT4 6.61 uIU/mL (0.47-4.68)
[2023-02-26 08:11] LABS: Lactate (Lactic Acid) 1.4 mmol/L (0.7-2.1)
[2023-02-26 08:44] LABS: Free T4, Direct Thyroxine 1.06 ng/dL (0.78-2.19)
[2023-02-26] MEDS: DEXAMETHASONE 10 MG/ML VIAL 6 MG IV (08:45)
[2023-02-26] MEDS: MAGNESIUM SULFATE 2 GM/50 ML PIGGYBACK IV (08:45)
[2023-02-26] MEDS: MULTIVITAMIN 1 TABLET 1 TAB PO (08:46)
[2023-02-26] MEDS: THIAMINE 100 MG TABLET PO (08:46)
[2023-02-26] MEDS: FOLIC ACID 1 MG TABLET PO (08:46)
[2023-02-26 09:41] LABS: INR 1.6 (0.9-1.3); Prothrombin Time 18.2 SECONDS (9.4-12.5)
--- NOTE | 2023-02-26 12:51 | CM.DANOTE ---
Patient is a 72 yo female who was admitted on 02/25/23 for COVID+/resp failure. Pt has [facility] and [employer] for insurance and her PCP is Dr. Dara Peters. EMR was reviewed. Per MD, pt with hx of daily ETOH and cirrhosis and mild cog impairment and admitted for COVID, needing thoracentesis, and resp failure. Pt currently on oxygen and likely needing 1-2 more days. PT ordered and pending. SW met bedside with pt and spouse and explained role and pt able to participate in discussion but spouse provides historical information. They confirm they live in [place] in a single story home and pt typically does not use DME for ambulation but over the past couple months has had increased unsteadiness and has a walker at home from a prior ankle fx in 2019 that they can use. Pt does not drive and spouse continues to ensure pt gets out of the home for once a week outpt PT in [place] even though pt does not follow through with exercises in between sessions. Spouse continues to take pt out to lunch or dinner even though she mostly pushes her food around the plate as pt mostly only drinks Ensure at home. Pt does not drive but relies on spouse. Spouse states they have been for 30 years and he has continued to try to encourage pt to reduce her alcohol use down from 4 drinks a day to one drink but pt is not interested yet in sobriety or reducing her alcohol use despite cirrhosis. Pt has a Neurologist appointment scheduled for May 2023 in a couple months. Spouse has been able to manage pt's ADLs well but has noticed pt needing increased assist and sometimes increased confusion. Pt has no hx of HH or SNF and spouse feels he can still manage her at home. Spouse has set up a PP CG a few times before when he has had to go out of town for a couple days as pt forgets to drink her Ensure or forgets where he is. Spouse thinks pt has completed a POLST form before at their PCP office but does not think they have completed DPOA pwk. They do not have any children and pt only has a sister who lives in [place] as her only other relative. SW provided DPOA brochure and pwk and spouse plans to review and discuss with pt towards completing prior to discharge. Plan: SW to follow closely for PT eval and recommendations to confirm safe d/c home with spouse when medically stable and any further identified discharge planning needs. CAROLINE Whalen Discharge Planning/Care Management Advanced directive, confirm from FAMILY Start: 02/25/23 17:37 Freq: Q24H Status: Active Protocol: Document 02/25/23 18:24 AH (Rec: 02/25/23 18:24 AH [id number]) Advance Directive, confirm on record Time 16:30 Person contacted Allen Copy received No CM Discharge Assessment Start: 02/26/23 12:43 Freq: Status: Active Protocol: Document 02/26/23 12:44 BF (Rec: 02/26/23 12:49 BF [id number]) Discharge Planning Assessment Assigned Breastfeeding Program Coordinator CAROLINE Holbrook DPOA/Assigned Designee Name informally spouse Allen, gave DPOA pwk Advance Directives? No Advance Directives on File No History Provided By Patient,Significant Other, Medical Record Has Patient been admitted in last 30 No days? Prior Living Arrangements House Comment single story Household Members spouse Type of transporation used prior to Relies on Others admit Comment spouse drives Independent with ADL's Yes: mostly Is patient alert and oriented? Yes: mostly, some mild cog impairment Needs Assistance With Meal Prep,Managing Medications ,Home Chores / Shopping Caregiver for Another No Community Services used prior to Physical Therapy admission: Comment Pt goes to outpt PT once a week in [place] DME Already Rented / Owned FWW / Walker Comment has walker from prior ankle fx couple years ago but does not typically use Patient/Family Preference OP PT Therapy Comment Pending PT eval Barriers to Discharge No Discharge Plan Home Transportation Arrangement Spouse bedside and plans to transport at d/c Referrals Initiated None needed Whiteboard Updated in Patient Room with Yes name and ext. # of Breastfeeding Program Coordinator Review Status In Process Please Provide Date Initial DC 02/26/23 Assessment Was Performed Next Review Type Continued Stay Review
--- NOTE | 2023-02-26 14:05 | PT.IIE ---
Current Diagnoses COVID-19 (02/25/23) Surgical History (Last Reviewed 02/25/23 @ 12:07 by Tracey Mcnamara DO) History of dental surgery Hx of tonsillectomy Medical History (Last Reviewed 02/25/23 @ 12:07 by Tracey Mcnamara DO) Ankle fracture, left Hypothyroid Physical Therapy Inpatient Evaluation/Re-Eval M1 PT/OT-IP Prior Functional Status Start: 02/26/23 14:56 Freq: NEEDED Status: Active Protocol: Document 02/26/23 14:05 AB (Rec: 02/26/23 15:12 AB [id number]) Medical Review Prior Functional Status Medical History Reviewed Yes Communication able to make needs known Mobility and Gait spouse in room and provided most of pt's PLOF and home set up: stated that pt was indepedent with all mobilities and ambulation without AD; stated that he assists pt with stair climbing Social History Household Members spouse Living Arrangements House Number of Floors (Floors) One Floor Number of Stairs To Enter/Railing? 4 steps R rail ascending Home Environment Standard Height Toilet,Walk in Shower Home Equipment Front Wheel Walker,Hand Held Shower,Grab Bars In Shower M2 PT-IP Current Condition Start: 02/26/23 14:56 Freq: NEEDED Status: Active Protocol: Document 02/26/23 14:05 AB (Rec: 02/26/23 15:12 AB [id number]) Physical Therapy Current Condition Current Condition Evaluation Date 02/26/23 Treatment Diagnosis Covid; difficulty in walking Onset Date 02/25/23 M3 PT-IP Subjective Start: 02/26/23 14:56 Freq: NEEDED Status: Active Protocol: Document 02/26/23 14:05 AB (Rec: 02/26/23 15:12 AB [id number]) Subjective Physical Therapy Visit Type Type Initial Evaluation Visit Start Time 14:05 Visit Stop Time 14:50 Total Visit Minutes 45 Number of HOST/HOSTESS Visits 0 Physical Therapy Visit Comments Patient Comments hesitant to participate and need encouragement; stated that she is tired and cold; spouse in room and encouraged pt M4 PT-IP Mobility and Gait Start: 02/26/23 14:56 Freq: NEEDED Status: Active Protocol: Document 02/26/23 14:05 AB (Rec: 02/26/23 15:12 AB [id number]) PT-Bed Mobility Assessment Supine to Sit Supine to Sit Standby Assistance Sit to Supine Sit to Supine Standby Assistance PT-Transfer Assessment Sit to and From Stand Sit to and from Stand Contact Guard Assistance,1 Person Assistance,Use of Upper Extremities Equipment Transfer Assistive Device None,Gait Belt,Front Wheeled Walker Orthotic/Prosthetic Devices or Brace: No Transfers Transfer Destination Toilet Transfer Technique ambulated Transfer Ability Level of Assist Contact Guard Assistance,1 Person Assistance,Use of Upper Extremities Comments Mobility Comments pt supine in bed. spouse in room. pt stated that she is tired and cold and does not really want to move but spouse encouraged pt. obtained PLOF and home set up. Pt usually asks spouse for answers to questions. O2 sat with O2 on 92% at rest. pt completed supine to sit SBA . able to sit on EOB SBA. pt is very impulsive. completed sit to stand CGA and ambulated in room without AD CGA. pt sat back on EOB. instructed pt to ambulate without AD. pt requested to use the toilet and ambulated to the toilet without AD CGA to min A without AD. presents with unsteady ataxic gait with LOB min A to cover and pt will reach for counter/wall for support. pt completed toileting SBA and cues. sit to stand from the toilet CGA and ambulated towards the sink CGA without AD. able to stand and wash her hand SBA to CGA. pt then stated that she needs to go back to use the toilet and ambulated without AD CGA to min A. pt continues to be impulsive despite cues to slow down for safety. pt again used the toilet and ambulated to the sink for handwashing CGA to min A. Pt again stated that she needs to go back and use the toilet. Pt repeated this x 3. Pt requested to go back to bed . sit to supine SBA. positioned in bed. call light and table placed within reach. Gait Assessment Gait Gait Assistance Required: Contact Guard Assist,Minimum Assistance Distance (Feet) 20 Able to Maintain Weight Bearing Status Yes During Gait Assistive Devices Assistive Device None,Gait Belt Orthotic/Prosthetic Devices or Brace: No Gait Deviations General Gait Pattern Ataxic,Decreased Stride Length ,Decreased Feet Clearance,Step -to Gait Factors Limiting Gait Function Factors Limiting Gait Function Decreased Activity Tolerance, Decreased Strength,Difficulty Following Directions,Poor Balance,Poor Safety Awareness, Respiratory Distress PT-Balance Assessment Sitting Balance and Reactions Static Sitting Balance Ability Good Dynamic Sitting Balance Ability Good Standing Balance and Reactions Static Standing Balance Ability Fair Dynamic Standing Balance Ability Fair Device Used without AD M5 PT-IP Objective Assessments Start: 02/26/23 14:56 Freq: NEEDED Status: Active Protocol: Document 02/26/23 14:05 AB (Rec: 02/26/23 15:12 AB [id number]) Orientation Orientation/Cognition Level of Alertness Alert Orientation Name Language Function Ability No Deficits Noted Safety Awareness Decreased Safety Awareness Memory Description Short Term Impaired,[place] Driver Impaired Gross Range of Motion Lower Extremity ROM Assessment Within Functional Limits Strength Lower Extremity Strength Assessment Within Functional Limits Muscle Tone Muscle Tone WNL Yes M6 PT-IP Treatment Start: 02/26/23 14:56 Freq: NEEDED Status: Active Protocol: Document 02/26/23 14:05 AB (Rec: 02/26/23 15:12 AB [id number]) Physical Therapy Treatment Education Education Provided Safety M7 PT-IP Assessment and Plan Start: 02/26/23 14:56 Freq: NEEDED Status: Active Protocol: Document 02/26/23 14:05 AB (Rec: 02/26/23 15:12 AB [id number]) PT Summary Assessment and Plan Potential Rehabilitation Potential Fair Status of Condition at Evaluation Evolving Summary Impairments Strength,Balance,Coordination, Cognition,Bed Mobility, Transfers,Gait,Activity Tolerance Assessment Summary pt is a 72 y/o F who presented to the ED for SOB. pt admitted for Covid + and has droplet precautions. pt requiring CGA to min A with ambulation without AD and presents with unsteady ataxic gait. pt also is very impulsive with decrease safety awareness contributing to level of assistance needed for safety. Recommending using of FWW at this time. spouse stated that they have one at home. pt plans to go home and spouse stated that he will be able to assist pt. Goals Bed Mobility Goal Independent Transfer Goal Independent,Front Wheeled Walker Gait Goal Independent,Front Wheel Walker Gait Distance 300 Other Goals improve transfers and ambulation using LRAD/without AD mod I ~ 300 ft up/down 4 steps R rail ascending mod I Days to Meet Goals 10 Frequency of Treatment Frequency Of Treatment Once a Day Treatment Plan Physical Therapy Treatment Plan Bed Mobility Training,Transfer Training,Gait Training, Therapeutic Exercise,Balance Retraining,Discharge Planning, Hot or Cold Pack,Neuromuscular Re-ed,Coordination Retraining Precautions Other Precautions Covid droplet precautions Recommendations To Nursing Amount of Assist Needed 1 Person Assist Discharge Recommendations PT Discharge Recommendations Home with 30/08 Assist Available,Home Health Transportation Needs at Discharge Private Vehicle,Wheelchair/ Cabulance
--- NOTE | 2023-02-26 14:19 | PC.NURSE ---
In AM, RN analyzed ECG strip and noted prolonged QT. RN called pharmacy and reported prolonged QT for pharmacy to do a med review. RN reported prolonged QT along with soft BPs (all with MAPs >65 and pt asymptomatic) to provider. RN also asked provider about adding a lactate on to AM labs.
[2023-02-26] MEDS: LORazepam 2 MG/ML INJ IV (15:20)
--- NOTE | 2023-02-26 16:21 | DI.RAD.S_ITS ---
PROCEDURE: XR CHEST 1V INDICATIONS: post-thoracentesis TECHNIQUE: One view of the chest was acquired. COMPARISON: [facility], , XR CHEST 1V, 02/25/2023, 12:21. FINDINGS: Surgical changes and devices: None. Lungs and pleura: Right-sided pleural effusion associated compressive atelectasis and or infiltrate. Left lung and pleural space clear Mediastinum: Mediastinal contours appear normal. Heart size is normal. Bones and chest wall: No suspicious bony lesions. Overlying soft tissues appear unremarkable. IMPRESSION: Persistent but improved right-sided pleural effusion without pneumothorax status post thoracentesis Approved by: Amando Hannah M.D. on 02/26/2023 at 17:24
--- NOTE | 2023-02-26 16:42 | PC.NURSE ---
This RN assisted Dr. Rodriguez with bedside thoracentesis using bedside ultrasound. Pt was on 2L of O2 via nasal cannula during entire procedure. Verbal consent and signed consent obtained. Pt was given a 1 mg of IV push lorazepam prior to procedure. Pt was still anxious during the sterile set up of the procedure and this RN administered another 1 mg of IV push lorazepam per Dr. Rodriguez during the procedure. Pt was given a total of 2 mg of IV lorazepam for the entire procedure. Pt tolerated the procedure well. The pt had 2L of fluid drained off of the pt. Pt's VSS after the procedure.
[2023-02-26 16:48] LABS: Lactate Dehydrogenase 253 U/L (120-246)
--- NOTE | 2023-02-26 16:57 | P.PCN_ITS ---
Procedures Date/Time Date of procedure: 02/26/23 Time of procedure: 16:00 General Procedure description: Thoracentesis Procedure Note Prior to the procedure formal consent was obtained from the patient after discussion of risks and benefits of the procedure, and allowing the patient to ask any questions. Ultrasound was used to find safe entry site, and the site was marked. A time-out was performed. The site was then prepped and draped in usual sterile fashion, and a 16 gauge needle was inserted with return of straw- colored fluid. Approx 60mL of fluid was sent to the lab for testing. A total of approximately 2000 mL was obtained before drainage stopped. There was no bleeding and the patient tolerated the procedure well. There were no further complications. Chest X-ray read is pending at the time of this note, but my bedside read showed no pneumothorax. Ricky Rodriguez, DO
--- NOTE | 2023-02-26 16:59 | PM.PN.1 ---
Subjective Subjective Interval history: Patient still on 2L. Thoracentesis planned for today. LFT's downtrending. Patient has no complaints. Exam Vital Signs (past 8 hours): - 02/26/23 09:00 02/26/23 09:00 02/26/23 09:13 Temperature Pulse Rate 74 69 Respiratory Rate 30 H 47 H Blood Pressure 102/69 Pulse Oximetry 92 93 Oxygen Flow Rate 2 2 2 02/26/23 09:13 02/26/23 09:30 02/26/23 09:58 Temperature Pulse Rate 68 64 Respiratory Rate 20 Blood Pressure 94/64 Pulse Oximetry 91 91 Oxygen Flow Rate 2 2 02/26/23 10:00 02/26/23 10:05 02/26/23 10:05 Temperature Pulse Rate 65 68 Respiratory Rate 33 H Blood Pressure 94/63 Pulse Oximetry 91 91 Oxygen Flow Rate 02/26/23 10:11 02/26/23 11:00 02/26/23 11:00 Temperature Pulse Rate 66 62 Respiratory Rate 21 34 H Blood Pressure 92/57 L Pulse Oximetry 91 92 Oxygen Flow Rate 02/26/23 12:29 02/26/23 12:59 Temperature 97.2 F L 97.2 F L Pulse Rate 82 82 Respiratory Rate 16 16 Blood Pressure 99/67 99/67 Pulse Oximetry 93 93 Oxygen Flow Rate 2 2 Oxygen Delivery Method Nasal Cannula Oxygen Flow Rate 2 Narrative Exam Narrative: GEN: no acute distress, thin, dismissive HEENT: moist mucous membranes, PERRL NECK: trachea midline, no JVD CV: regular rate and rhythm, no murmurs PULM: decreased breath sounds on right base ABD: soft, nontender, nondistended, no organomegaly EXT: warm and well perfused with no edema NEURO: awake, alert, A/Ox2.5, no focal deficits Objective Labs 02/26/23 06:16 02/26/23 06:16 Labs: Laboratory Results - last 24 hr 02/25/23 02/25/23 02/26/23 12:20 16:35 06:16 WBC 4.5 D RBC 3.84 L Hgb 13.8 Hct 40.5 MCV 105.3 H MCH 35.8 H MCHC 34.0 RDW 14.4 Plt Count 162 Neut % (Auto) 73.7 Lymph % (Auto) 20.3 L [place] % (Auto) 5.6 Eos % (Auto) 0.1 L Baso % (Auto) 0.3 Neut # (Auto) 3300 Lymph # (Auto) 900 L [place] # (Auto) 300 Eos # (Auto) 0 Baso # (Auto) 0 PT INR Sodium 131 L Potassium 4.1 D Chloride 100 Carbon Dioxide 29 BUN 6 L Creatinine 0.42 L Estimated GFR > 60 BUN/Creatinine Ratio 14.3 Glucose 120 H Lactate 2.4 H 1.4 Calcium 7.2 L Magnesium 1.8 Total Bilirubin 2.8 H AST 103 H ALT 48 H Alkaline Phosphatase 131 H Lactate Dehydrogenase Total Protein 4.8 L Albumin 2.1 L Globulin 2.7 Albumin/Globulin Ratio 0.8 L Procalcitonin 0.33 TSH 6.61 H Free T4 1.06 Hepatitis A IgM Ab Negative Hep Bs Antigen Negative Hep B Core IgM Ab Negative Hepatitis C Antibody Non reactive Hep C Ab Signal/Cutoff Comment 02/26/23 02/26/23 08:50 09:00 WBC RBC Hgb Hct MCV MCH MCHC RDW Plt Count Neut % (Auto) Lymph % (Auto) [place] % (Auto) Eos % (Auto) Baso % (Auto) Neut # (Auto) Lymph # (Auto) [place] # (Auto) Eos # (Auto) Baso # (Auto) PT 18.2 H INR 1.6 H Sodium Potassium Chloride Carbon Dioxide BUN Creatinine Estimated GFR BUN/Creatinine Ratio Glucose Lactate Calcium Magnesium Total Bilirubin AST ALT Alkaline Phosphatase Lactate Dehydrogenase 253 H Total Protein Albumin Globulin Albumin/Globulin Ratio Procalcitonin TSH Free T4 Hepatitis A IgM Ab Hep Bs Antigen Hep B Core IgM Ab Hepatitis C Antibody Hep C Ab Signal/Cutoff [facility] Medical History Ankle fracture, left Hypothyroid Surgical History History of dental surgery Hx of tonsillectomy Social History household members: spouse Smoking Status: Never smoker alcohol intake: current Assessment & Plan Assessment & Plan narrative: # hypoxic respiratory failure -likely secondary to COVID and large R pleural effusion compressing lung -will perform diag/therapeutic thoracentesis to determine etiology -effusion likely from liver cirrhosis, can't rule out malignancy -requiring 2L, wean as able -will give decadron daily due to hypoxia, cannot use remdesivir with transaminitis -s/p thora on 02/26 with 2L drained from right side -pleural fluid studies pending including LDH, protein, gram stain, culture, and cytology # acute alcoholic hepatitis -Maddrey's 29.9 so doesn't quite warrant steroids -LFT's, INR and T-bili elevated -now downtrending LFT's # lactic acidemia, resolved -LA 2.5, then 2.9 -normalized with IVF # COVID positive -patient notes sore throat - also recently tested positive -decadron daily due to hypoxia # daily alcohol use -drinks 4 beverages daily - working on cutting it down to 1 drink daily, but patient not motivated to quit -CIWA, but last drink 2 days ago so likely out of withdrawal window # mild cognitive impairment -patient incorrectly stated month, but knew the year and her location - notes more forgetfulness, and they have outpatient neurology appt coming up # hypothyroidism -TSH 6, normal T4 -continue synthroid # hypokalemia -replete PRN # malnutrition -dietary consult Code status is full code. DVT prophylaxis with Lovenox. Proxy is Allen. I have reviewed home meds and used all available resources to reconcile the home meds. Dispo: Home with HH in 1-2 days. COVID-19 COVID-19 status: Positive
[2023-02-26 17:15] LABS: Body Fluid Tot Nucleated Cells 106 /uL
--- NOTE | 2023-02-26 17:18 | PC.NURSE ---
Vital signs pre thoracentesis T 96.9, P 75, RR 15, BP 91/63, RA O2 sat 95%. Pt did recieve 2mg of Ativan during procedure and O2 was applied. Post thoracentesis vital signs are P 72, RR 14 BP 89/54. O2 sat on 2L was 94%. Pt remains quietly sleeping at this time.
[2023-02-26 18:29] LABS: Body Fluid Appearance SLIGHTLY CLOUDY; Body Fluid Clotted? NO CLOTS PRESENT; Body Fluid Color YELLOW
[2023-02-26 18:39] LABS: Eosinophils Body Fluid 0 %; Mononuclear WBC Body Fluid 80 %; Other Cells Body Fluid 18 %; Polynuclear WBC Body Fluid 2 %
[2023-02-27] VITALS (12 sets, daily range): BP systolic 77–118; BP diastolic 53–76; PULSE 64–79; RESP 16–20; TEMP 35.7–36.4; O2SAT 92–95
--- NOTE | 2023-02-27 00:40 | PC.NURSE ---
Addendum entered by Florina Gold R.N. 02/27/23 06:56: BP improved after 500cc bolus: 98/69 (MAP 80), HR 69. O2 93% on 3L NC. Patient continues to be highly anxious when attempting to provide care, however is calm and rests quietly in the bed otherwise. Denies pain. (Jak) at bedside. Original Note: hourly shift manager: Patient is alert and oriented to self. Patient is fatigued and is resting in bed, easily arousable to voice, however is disoriented and becomes agitated during repositioning or providing care. (Jak) helps to calm and reorient the patient. BP is soft but appears to run low at baseline, VSS, O2 saturation in mid 90's on 2L NC. Denies pain, nausea, SOB. Eyes remain forcefully closed. IVF infusing as ordered. Fall precautions in place. 0000 update: BP low during midnight vitals check. 77/53 (MAP 60), HR 64, O2 saturation 90% on 2L NC. MD Garcia notified, 500cc bolus of NS running over 1hr. O2 increased to 4L NC, O2 saturation 93%. Patient remains fatigued but arousable to voice. Will continue to monitor.
[2023-02-27] MEDS: SODIUM CHLORIDE 0.9% 1,000 ML 125 ML IV (02:49)
[2023-02-27 05:11] LABS: Add Manual Diff / Slide Review NO; Basophils Absolute Auto 100 /uL (0-100); Basophils Percent Auto 0.8 % (0-2); Eosinophils Absolute Auto 0 /uL (0-450); Eosinophils Percent Auto 0.1 % (2-4); Hematocrit 37.4 % (36-46); Hemoglobin 12.8 g/dL (12.0-16.0); Lymphocytes Absolute Auto 1600 /uL (1100-4500); Lymphocytes Percent Auto 24.2 % (25-40); Mean Corpuscular HGB Conc 34.1 % (30-36); Mean Corpuscular Hemoglobin 36.1 PG (26-34); Mean Corpuscular Volume 105.8 fL (80-100); Monocytes Absolute Auto 600 /uL (0-900); Monocytes Percent Auto 8.8 % (3-14); Neutrophils Absolute Auto 4400 /uL (1500-7000); Neutrophils Percent Auto 66.1 % (50-75); Platelet Count 198 X10^3/uL (150-400); Red Blood Cell Count 3.53 X10^6/uL (4.0-5.2); Red Cell Distribution Width 14.4 % (11.6-14.8); White Blood Cell Count 6.6 X10^3/uL (4.5-11.0)
[2023-02-27 05:28] LABS: Alanine Aminotransferase 41 IU/L (<35); Albumin Globulin Ratio 0.8 (1.0-2.8); Alkaline Phosphatase 116 U/L (38-126); Aspartate Aminotransferase 77 IU/L (14-36); BUN Creatinine Ratio 19.5 (6-22); Blood Urea Nitrogen 8 mg/dL (7-17); Calcium 7.1 mg/dL (8.4-10.2); Carbon Dioxide 28 mmol/L (22-32); Chloride 104 mmol/L (98-107); Estimated Glomerular Filt Rate > 60 mL/min (>60); Globulin 2.6 g/dL (1.7-4.1); Glucose 91 mg/dL (80-110); HEMOLYSIS < 15 (0-50); Potassium 3.9 mmol/L (3.4-5.1); Sodium 134 mmol/L (137-145); Total Protein 4.6 g/dL (6.3-8.2)
[2023-02-27 05:43] LABS: INR 1.2 (0.9-1.3); Prothrombin Time 13.7 SECONDS (9.4-12.5)
[2023-02-27] MEDS: PANTOPRAZOLE DR 40 MG TABLET PO (08:16)
[2023-02-27] MEDS: ENOXAPARIN 40 MG/0.4 ML SYRINGE SUBCUT (08:17)
[2023-02-27] MEDS: MULTIVITAMIN 1 TABLET 1 TAB PO (08:17)
[2023-02-27] MEDS: SODIUM CHLORIDE 0.9% 1,000 ML 42 ML IV ×2 (08:17→15:03)
[2023-02-27] MEDS: THIAMINE 100 MG TABLET PO (08:17)
[2023-02-27] MEDS: DEXAMETHASONE 10 MG/ML VIAL 6 MG IV (08:17)
[2023-02-27] MEDS: NITROFURANTOIN ER 100 MG CAPSULE PO ×2 (08:17→20:08)
[2023-02-27] MEDS: FOLIC ACID 1 MG TABLET PO (08:17)
--- NOTE | 2023-02-27 10:52 | CM.DPC ---
DCP Cont: Per MD, pt currently on 3LO2 and not yet medically stable to discharge but making progress and likely another 1-2 days. Per PT, recommending home with spouse assist and HH. Spouse continues to currently feel like he can meet pt's needs at home and preference remains her currently established outpt PT as he feels its important for pt to get out of the house some and has the established relationship with PT already. Plan: SW to follow closely to confirm plan of home with spouse assist and ongoing outpt PT and r/o HH. CAROLINE Whalen
--- NOTE | 2023-02-27 11:17 | PT-IP ANOTE ---
PT reviews chart and clears with nsg. Pt supine with nearby. Upon awaking pt, pt is very agitated and screams out that she does not want to move, that she wants PT to leave her alone and she just wants to sleep. When encouraged by to move, pt shakes her arms and legs, con't to scream and partially sits up and con't to scream to be left alone. Will respect pt wishes. Con't PT efforts another day and pt may getting up with nsg for toileting and meals.
--- NOTE | 2023-02-27 12:03 | P.PN_ITS ---
Subjective Subjective Date Patient Seen: 02/27/23 Interval history: Pt with stable resp status, remains on 3 L O2 NC. On dex for COVID-19. Also bilirubin improving with EtOH hepatitis - no evid of cirrhosis on CT. 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 Also sig chronic anxiety. Urine cx + E.coli. Exam Vital Signs (past 8 hours): - 02/27/23 04:10 02/27/23 06:56 02/27/23 08:00 Temperature 97.0 F L Pulse Rate 71 75 Respiratory Rate 18 Blood Pressure 89/53 L 85/55 L Pulse Oximetry 93 93 Oxygen Delivery Method Nasal Cannula Oxygen Flow Rate 3 3 02/27/23 08:49 02/27/23 10:57 02/27/23 11:31 Temperature 96.3 F L 97.0 F L Pulse Rate 77 78 Respiratory Rate 20 16 Blood Pressure 100/66 101/72 Pulse Oximetry 93 92 92 Oxygen Delivery Method Nasal Cannula Oxygen Flow Rate 3 3 3 Oxygen Delivery Method Nasal Cannula Oxygen Flow Rate 3 Narrative Exam Narrative: Gen: alert, baseline anxious Lungs: no crackles or wheeze CV: regular Abd: non-distended Ext: no edema Objective Labs 02/27/23 04:35 02/27/23 04:35 Labs: Laboratory Results - last 24 hr 02/26/23 02/26/23 02/27/23 09:00 16:15 04:35 WBC 6.6 RBC 3.53 L Hgb 12.8 Hct 37.4 MCV 105.8 H MCH 36.1 H MCHC 34.1 RDW 14.4 Plt Count 198 Neut % (Auto) 66.1 Lymph % (Auto) 24.2 L [place] % (Auto) 8.8 Eos % (Auto) 0.1 L Baso % (Auto) 0.8 Neut # (Auto) 4400 Lymph # (Auto) 1600 [place] # (Auto) 600 Eos # (Auto) 0 Baso # (Auto) 100 PT 13.7 H INR 1.2 Sodium 134 L Potassium 3.9 Chloride 104 Carbon Dioxide 28 BUN 8 Creatinine 0.41 L Estimated GFR > 60 BUN/Creatinine Ratio 19.5 Glucose 91 Calcium 7.1 L Magnesium 2.0 Total Bilirubin 2.0 H AST 77 H ALT 41 H Alkaline Phosphatase 116 Lactate Dehydrogenase 253 H Total Protein 4.6 L Albumin 2.0 L Globulin 2.6 Albumin/Globulin Ratio 0.8 L Fluid Color Yellow Fluid Appearance Slightly cloudy Fluid RBC [id number] Fld Tot Nucleated Cell 106 Fluid Polynuclear WBCs 2 Fluid Mononuclear WBCs 80 Fluid Eosinophils 0 Fluid Other Cells 18 Body Fluid Clot No clots present PFSH Medical History Ankle fracture, left Hypothyroid Surgical History History of dental surgery Hx of tonsillectomy Social History household members: spouse Smoking Status: Never smoker alcohol intake: current Assessment & Plan Assessment & Plan narrative: # hypoxic respiratory failure -- COVID, rt lung effusion -likely secondary to COVID and large R pleural effusion compressing lung -s/p thora on 02/26 with 2L drained from right side, appears transudative, neg gram stain, cytology sent -CT no pulmonary mass or nodule -effusion likely from acute liver dz -currently requiring 3L, wean as able -cont dexamethasone 6 mg IV daily for 10 days or til discharge due to hypoxia, cannot use remdesivir with transaminitis -pleural fluid studies pending including LDH, protein, culture, and cytology # acute alcoholic hepatitis -Maddrey's 29.9 so doesn't quite warrant steroids -LFT's, INR and T-bili elevated, all improving -no evidence of cirrhosis or ascites on CT # lactic acidemia, resolved -LA 2.5, then 2.9 -normalized with IVF # COVID positive -patient notes sore throat and cough x 10 days - also recently tested positive -decadron daily due to hypoxia # daily alcohol use -drinks 4 beverages daily -patient not motivated to quit -no evidence of acute withdrawal -daily folate, thiamine # mild cognitive impairment vs dementia -patient incorrectly stated month, but knew the year and her location - notes more forgetfulness, short-term memory deficits, and they have outpatient neurology consult coming up in May -recheck B12, (B12 level 492 in July last year) # hypothyroidism -TSH 6, normal T4 -continue synthroid # hypokalemia, corrected -initial K 2.5 -replete PRN # malnutrition, severe protein calorie -BMI 20, chronic poor inatke, states pt has 2 ensure a day and very little else -dietary consult # hypotension -likely volume depleted on admit -BP 70's systolic overnight 02/26, responded to IV bolus -cont NS 42 cc/hr gentle hydration and enc po fluid intake # UTI, uncomplicated -Macrobid 100 mg bid x 5 days, started 02/27 Code status is changed to DNR upon review of living will brought in by spouse. DVT prophylaxis with Lovenox. Proxy is Allen, very supportive, appears as very good caregiver for pt.
--- NOTE | 2023-02-27 18:26 | PC.NURSE ---
Day shift: Pt's mentation waxed and waned today - she was oriented to person and place, but unaware why she is in the hospital. She often cried and moaned whenever any care was done (for example repositioning nasal canula in nose) and cried frequently about being in the hospital. This RN reassured and redirected. Pt denied pain, but later stated she always has a headache. Declined any medication for headache. CIWA scores between 4 and 6 this shift. NS @ 42mL/hr. Pt remains on 3L NC - O2 sats 92-94 percent. Dry intermittent, non-productive cough. Pt refused to get out of bed with PT or with nursing staff today. She used purewic to void despite encouragement to get out of bed. Urine output 200mL - dark hemal. Started on PO antibiotics for UTI. Pt ate nothing this shift - drank 1 ensure and 1/2 of an additional supplement drink. Code status changed to DNR by MD Grant after pt's brought in signed form. present at bedside the majority of the day. Will continue to monitor.
[2023-02-27] MEDS: ACETAMINOPHEN 325 MG TABLET PO (20:08)
--- NOTE | 2023-02-27 21:50 | PC.NURSE ---
Pt attemping to get up out of bed wanting to use restroom. IV got pulled out. Very anxious. Purewick still in place, explained how it works or if she wants to get up instead to use the restroom. Pt laid back down wanting to use purewick and just sleep. Explained that a new IV needs to be place, but pt stated I do not want to be stuck with a needle, I need a shot of bourbon. Reminded pt she is in the hospital and I would ask the doctor for a medication to help relax her. CIWA is 2.
--- NOTE | 2023-02-27 22:31 | PC.NURSE ---
Dr Micheal shields with no IV access.
[2023-02-27] MEDS: LORazepam 1 MG TABLET PO (22:49)
[2023-02-28] VITALS (8 sets, daily range): BP systolic 98–112; BP diastolic 68–80; PULSE 74–80; RESP 16; TEMP 35.9–36.2; O2SAT 90–95
[2023-02-28 05:07] LABS: Add Manual Diff / Slide Review NO; Basophils Absolute Auto 0 /uL (0-100); Basophils Percent Auto 0.7 % (0-2); Eosinophils Absolute Auto 0 /uL (0-450); Eosinophils Percent Auto 0.2 % (2-4); Hematocrit 37.2 % (36-46); Hemoglobin 12.8 g/dL (12.0-16.0); Lymphocytes Absolute Auto 1700 /uL (1100-4500); Lymphocytes Percent Auto 27.3 % (25-40); Mean Corpuscular HGB Conc 34.3 % (30-36); Mean Corpuscular Hemoglobin 36.6 PG (26-34); Mean Corpuscular Volume 106.8 fL (80-100); Monocytes Absolute Auto 700 /uL (0-900); Monocytes Percent Auto 10.9 % (3-14); Neutrophils Absolute Auto 3800 /uL (1500-7000); Neutrophils Percent Auto 60.9 % (50-75); Platelet Count 200 X10^3/uL (150-400); Red Blood Cell Count 3.49 X10^6/uL (4.0-5.2); Red Cell Distribution Width 14.1 % (11.6-14.8); White Blood Cell Count 6.2 X10^3/uL (4.5-11.0)
[2023-02-28 05:28] LABS: Magnesium 1.9 mg/dL (1.6-2.3)
[2023-02-28 05:31] LABS: Alanine Aminotransferase 53 IU/L (<35); Albumin 2.1 g/dL (3.5-5.0); Albumin Globulin Ratio 0.8 (1.0-2.8); Alkaline Phosphatase 117 U/L (38-126); Aspartate Aminotransferase 106 IU/L (14-36); BUN Creatinine Ratio 20.9 (6-22); Bilirubin Total 1.5 mg/dL (0.2-1.3); Blood Urea Nitrogen 9 mg/dL (7-17); Calcium 7.4 mg/dL (8.4-10.2); Carbon Dioxide 26 mmol/L (22-32); Chloride 107 mmol/L (98-107); Estimated Glomerular Filt Rate > 60 mL/min (>60); Globulin 2.6 g/dL (1.7-4.1); Glucose 77 mg/dL (80-110); HEMOLYSIS < 15 (0-50); INR 1.2 (0.9-1.3); Potassium 3.5 mmol/L (3.4-5.1); Prothrombin Time 13.4 SECONDS (9.4-12.5); Sodium 135 mmol/L (137-145); Total Protein 4.7 g/dL (6.3-8.2)
[2023-02-28] MEDS: LEVOTHYROXINE 125 MCG TABLET PO (06:13)
[2023-02-28] MEDS: PANTOPRAZOLE DR 40 MG TABLET PO (06:13)
[2023-02-28 06:17] LABS: Vitamin B12 943 pg/mL (239-931)
[2023-02-28] MEDS: ENOXAPARIN 40 MG/0.4 ML SYRINGE SUBCUT (09:23)
[2023-02-28] MEDS: FOLIC ACID 1 MG TABLET PO (09:23)
[2023-02-28] MEDS: NITROFURANTOIN ER 100 MG CAPSULE PO (09:23)
[2023-02-28] MEDS: THIAMINE 100 MG TABLET PO (09:23)
[2023-02-28] MEDS: MULTIVITAMIN 1 TABLET 1 TAB PO (09:23)
--- NOTE | 2023-02-28 11:05 | P.DS_ITS ---
History of Present Illness History of Present Illness Chief complaint: loss apetite, cough, low fluid intake Narrative: Cindy Kent is a 72yo F with PMH of alcoholism, hypothyroidism, GERD, and mild cog impairment who presents with fatigue, cough, sore throat and SOB. History mostly obtained from who is at bedside. He states she has been drinking several drinks of alcohol daily for quite some time, which they have seen GI about and she is not ready to quit. She has known cirrhosis of her liver from this and she is still not motivated to quit. Her noted he recently tested positive for COVID, then she began having symptoms including cough and sore throat. She doesn't eat solid food very much and has low weight. He thinks she is malnourished. She then laid in bed for 2 days and was not drinking much fluids so he was worried she was dehydrated. Last alcoholic drink was 2 days ago. says she has gotten progressively short of breath as well. Patient denies any symptoms really other than slight sore throat and cough. Denies CP, NV, abd pain or diarrhea. Discharge Providers Provider Date of admission: 02/25/23 15:47 Discharge Date: 03/17/23 Primary care physician: ELISE Lopez Consults: 02/25/23 16:01 Consult to Dietitian, Adult Routine Comment: Reason For Exam: alcoholic, malnourished 02/25/23 17:37 Consult to [employer] Tower [employer] Routine Comment: 02/26/23 11:02 Consult to Physical Therapy Evaluate & Treat Comment: Physician Instructions: Evaluate and Treat Discharge provider: Caesar Polanco MD Summary Hospital Course Discharge Diagnosis: [address] [address] Progress Note Patient: Cindy Collins MR#: [id number] : 1950 Acct:[id number] Age/Sex: 72 / F Date of Service: 02/25/23 Provider: Caesar Le MD Subjective Subjective Date Patient Seen: 02/27/23 Interval history: Pt with stable resp status, remains on 3 L O2 NC. On dex for COVID-19. Also bilirubin improving with EtOH hepatitis - no evid of cirrhosis on CT. 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 Also sig chronic anxiety. Urine cx + E.coli. Exam Vital Signs (past 8 hours): - 02/27/2403:10 02/27/2405:56 02/27/2407:00 Temperature 97.0 F L Pulse Rate 71 75 Respiratory Rate 18 Blood Pressure 89/53 L 85/55 L Pulse Oximetry 93 93 Oxygen Delivery Method Nasal Cannula Oxygen Flow Rate 3 3 02/27/2407:49 02/27/2409:57 02/27/2410:31 Temperature 96.3 F L 97.0 F L Pulse Rate 77 78 Respiratory Rate 20 16 Blood Pressure 100/66 101/72 Pulse Oximetry 93 92 92 Oxygen Delivery Method Nasal Cannula Oxygen Flow Rate 3 3 3 Oxygen Delivery Method Nasal Cannula Oxygen Flow Rate 3 Narrative Exam Narrative: Gen: alert, baseline anxious Lungs: no crackles or wheeze CV: regular Abd: non-distended Ext: no edema Objective Labs 02/27/23 04:35 02/27/23 04:35 Labs: Laboratory Results - last 24 hr 02/26/23 02/26/23 02/27/23 09:00 16:15 04:35 WBC 6.6 RBC 3.53 L Hgb 12.8 Hct 37.4 MCV 105.8 H MCH 36.1 H MCHC 34.1 RDW 14.4 Plt Count 198 Neut % (Auto) 66.1 Lymph % (Auto) 24.2 L [place] % (Auto) 8.8 Eos % (Auto) 0.1 L Baso % (Auto) 0.8 Neut # (Auto) 4400 Lymph # (Auto) 1600 [place] # (Auto) 600 Eos # (Auto) 0 Baso # (Auto) 100 PT 13.7 H INR 1.2 Sodium 134 L Potassium 3.9 Chloride 104 Carbon Dioxide 28 BUN 8 Creatinine 0.41 L Estimated GFR > 60 BUN/Creatinine Ratio 19.5 Glucose 91 Calcium 7.1 L Magnesium 2.0 Total Bilirubin 2.0 H AST 77 H ALT 41 H Alkaline Phosphatase 116 Lactate Dehydrogenase 253 H Total Protein 4.6 L Albumin 2.0 L Globulin 2.6 Albumin/Globulin Ratio 0.8 L Fluid Color Yellow Fluid Appearance Slightly cloudy Fluid RBC [id number] Fld Tot Nucleated Cell 106 Fluid Polynuclear WBCs 2 Fluid Mononuclear WBCs 80 Fluid Eosinophils 0 Fluid Other Cells 18 Body Fluid Clot No clots present [facility] Medical History Ankle fracture, left Hypothyroid Surgical History History of dental surgery Hx of tonsillectomy Social History household members: spouse Smoking Status: Never smoker alcohol intake: current Assessment & Plan Assessment & Plan narrative: # Acute hypoxic respiratory failure , present on admission and resolved.-- COVID, rt lung effusion -likely secondary to COVID and large R pleural effusion compressing lung -s/p thora on 02/26 with 2L drained from right side, appears transudative, neg gram stain, cytology sent -CT no pulmonary mass or nodule -effusion likely from acute liver dz -currently requiring 3L, wean as able -cont dexamethasone 6 mg IV daily for 10 days or til discharge due to hypoxia, cannot use remdesivir with transaminitis -pleural fluid studies pending including LDH, protein, culture, and cytology # COVID pneumonia, present on admission and improving. # Acute alcoholic hepatitis, present on admission and stable. -Maddrey's 29.9 so doesn't quite warrant steroids -LFT's, INR and T-bili elevated, all improving -no evidence of cirrhosis or ascites on CT # Lactic acidemia, present on admission and resolved -LA 2.5, then 2.9 -normalized with IVF # Alcohol use disorder, present on admission and active. -drinks 4 beverages daily -patient not motivated to quit -no evidence of acute withdrawal -daily folate, thiamine. We will continue outpatient. # Cognitive impairment vs dementia, present on admission and stable. -patient incorrectly stated month, but knew the year and her location - notes more forgetfulness, short-term memory deficits, and they have outpatient neurology consult coming up in May -recheck B12, (B12 level 492 in July last year) # Hypothyroidism, present on admission and stable. -TSH 6, normal T4 -continue synthroid # Hypokalemia, present on admission and resolved. -initial K 2.5 -repleted PRN # Malnutrition, severe protein calorie. Present on admission and stable. -BMI 20, chronic poor inatke, states pt has 2 ensure a day and very little else -dietary consult # Hypotension, present on admission and resolved. -likely volume depleted on admit -BP 70's systolic overnight 02/26, responded to IV bolus -cont NS 42 cc/hr gentle hydration and enc po fluid intake # UTI, uncomplicated. Present on admission and improving. -Macrobid 100 mg bid x 5 days, started 02/27 Code status is changed to DNR upon review of living will brought in by spouse. DVT prophylaxis with Lovenox. Proxy is Allen, very supportive, appears as very good caregiver for pt. Hospital Course: She was admitted for weakness. She was treated for COVID pneumonia with acute hypoxemic respiratory failure. She was able to receive Decadron daily. She was able to wean off from oxygen. She does have a relatively severe alcohol use disorder. She was also found to have urine tract infection which was treated with Macrobid. The patient improved to her baseline. Discussed options with the on the day of discharge. He had a strong preference to return her home where he takes extensive care of her. This includes assisting with movements, transfers and going to the bathroom. He understands that she has a severe alcohol use disorder and we will continue to try to help her cut back on the amount of alcohol intake that she has. We did talk about the natural course of this disease with progressive worsening of symptoms, anorexia, and cognitive decline. She did have a large pleural effusion and underwent thoracentesis for large right pleural effusion. Pleural cultures came back negative for growth. Urine cultures came with E coli which was pansensitive. Blood cultures were negative. Status at Discharge Cognitive/behavioral status at discharge: at baseline, confused Functional status at discharge: uses cane/walker Overall status at discharge: patient is progressing back to baseline Time Spent with Patient Time spent: Greater than 30 minutes Exam Vital Signs (past 8 hours): - 02/28/23 04:00 02/28/23 04:27 02/28/23 04:40 Temperature 97.2 F L Pulse Rate 76 Respiratory Rate Blood Pressure 98/68 Pulse Oximetry 93 93 93 Oxygen Delivery Method Room Air Room Air Oxygen Flow Rate 02/28/23 08:00 02/28/23 08:00 02/28/23 09:00 Temperature 96.7 F L Pulse Rate 80 Respiratory Rate 16 Blood Pressure 112/80 Pulse Oximetry 90 L 91 Oxygen Delivery Method Room Air Room Air Oxygen Flow Rate 0 Oxygen Delivery Method Room Air Oxygen Flow Rate 0 Narrative Exam Narrative: NAD. Able to respond to questions, fluent speech. Lungs are clear, normal effort. Heart is regular, no murmur. No leg edema. Objective Imaging Chest x-ray: Radiologist's impression: Persistent but improved right-sided pleural effusion without pneumothorax status post thoracentesis CT scan - chest: Radiologist's impression: Large new right pleural effusion causing compressive atelectasis at much of the right lung. No evidence of empyema or malignancy as the underlying cause, from this study. Previously documented severe diffuse fatty infiltration has further progressed and become heterogeneous. An associated hepatic mass lesion or splenomegaly has not developed. New slight ascites is present deep within the pelvis. Incidental note is made of a 1.9 cm mid pancreatic body cyst not present in June of 2021. Labs 02/28/23 04:50 02/28/23 04:50 Labs: Laboratory Results - last 24 hr 02/28/23 04:50 WBC 6.2 RBC 3.49 L Hgb 12.8 Hct 37.2 MCV 106.8 H MCH 36.6 H MCHC 34.3 RDW 14.1 Plt Count 200 Neut % (Auto) 60.9 Lymph % (Auto) 27.3 [place] % (Auto) 10.9 Eos % (Auto) 0.2 L Baso % (Auto) 0.7 Neut # (Auto) 3800 Lymph # (Auto) 1700 [place] # (Auto) 700 Eos # (Auto) 0 Baso # (Auto) 0 PT 13.4 H INR 1.2 Sodium 135 L Potassium 3.5 Chloride 107 Carbon Dioxide 26 BUN 9 Creatinine 0.43 L Estimated GFR > 60 BUN/Creatinine Ratio 20.9 Glucose 77 L Calcium 7.4 L Magnesium 1.9 Total Bilirubin 1.5 H AST 106 H ALT 53 H Alkaline Phosphatase 117 Total Protein 4.7 L Albumin 2.1 L Globulin 2.6 Albumin/Globulin Ratio 0.8 L Vitamin B12 943 H [facility] Medical History Ankle fracture, left Hypothyroid Surgical History History of dental surgery Hx of tonsillectomy Social History household members: spouse Smoking Status: Never smoker alcohol intake: current Discharge Assessment & Plan Assessment and Plan Assessment: 1. COVID pneumonia and acute hypoxemic respiratory failure, present on admission and improving. 2. Alcohol use disorder, present on admission and stable. 3. Alcohol hepatitis, present on admission and stable. 4. Urine tract infection, present on admission and improving. 5. Lactic acidosis, present on admission and resolved. 6. Hypokalemia, present on admission and resolved. 7. Severe protein caloric malnutrition, present on admission and active. 8. Hypotension and volume depletion, present on admission and improved. 9. Hypothyroidism, present on admission and stable. 10. Cognitive impairment, present on admission and stable. Plan of Treatment: Discharge home with no new medications other than antibiotics for urinary tract infection. Follow up with primary care within the next 6-7 days. COVID isolation and COVID precautions. Minimize alcohol ingestion of possible. Discharge Plan Discharge Plan Patient Disposition: Home Provider Discharge Comment: Stable for discharge home to care of . Discharge orders & Medications Prescriptions: New folic acid 1 mg Tablet 1 mg PO DAILY Qty: 30 1RF nitrofurantoin monohyd/m-cryst [Macrobid] 100 mg Capsule 100 mg PO BID Qty: 8 0RF thiamine mononitrate (vit B1) 100 mg Tablet 100 mg PO DAILY Qty: 30 1RF Continued pantoprazole 40 mg tablet,delayed release (DR/EC) 40 mg PO DAILY Qty: 60 1RF levothyroxine 125 mcg tablet 150 mcg PO DAILY Follow up/Referrals: Dara Peters ARNP [Primary Care Provider] - Discharge Health Status Multidrug resistant organism: No MDRO Diet/Activity/Treatments Diet: Diet as Tolerated Activity: As tolerated. Visit Report/Discharge Packet Instructions: Alcoholic Hepatitis (Alternative Therapy), How to Prevent Falls, DI for COVID-19 (Suspected or Confirmed ) Stand Alone Forms: Patient Portal/API Discharge Data Primary Care Provider: Dara Peters
--- NOTE | 2023-02-28 11:50 | PC.NURSE ---
Day shift: Aided patient out of bed to BR this AM. Checked O2 saturation while ambulating. 90-92 percent on room air. Notified MD Polanco who ok'ed discharge home today. DORETHA Read went over discharge paperwork with patient and her and DORETHA Read assumed care of patient until discharge.
--- NOTE | 2023-02-28 11:51 | CM.DPNOTE ---
DCP Note MULTIPLE NEEDLE STITCHER reviewed EMR. Per chart review, pt on room air. Per provider in morning rounds, dc home today with supportive spouse. Per review of CM notes, pt spouse denied HH at this time due to it being one of the only things spouse leaves the house for and wants to continue with established PT. MULTIPLE NEEDLE STITCHER walked by room to pt yelling in frustration at the bed alarm. MULTIPLE NEEDLE STITCHER notified RN/CTA, RN/CTA entered room to assist pt. MULTIPLE NEEDLE STITCHER met with spouse in hallway due to pt's current COVID diagnosis. Spouse confirms would rather continue to use established OP PT to get pt out of house. MULTIPLE NEEDLE STITCHER explained that HH could be ordered through PCP if in future it becomes too challenging to navigate outside of home. Spouse appreciative. MULTIPLE NEEDLE STITCHER provided spouse with [facility] booklet for more information on shelter planning options in [place] for the future. Spouse appreciative. Plan: home with spouse support today. No additional CM needs identified at this time. CM team will continue to follow as needed. CAROLINE Chaparro
[2023-02-28 22:03] LABS: Labcorp LDH, Body Fluid 66 IU/L (.)
== END 2023-02-28 12:00 | disposition home or self-care (01) | DRG 177 ==
LOC: ED 14:59 → AC 15:48 → ICU 16:13 → AC 02-26 11:34
PROVIDERS: Internal Medicine; Admitting Provider Student in an Organized Health Care Education/Training Program; Emergency Provider Emergency Medicine; Family Provider Family Medicine; PCP Nurse Practitioner Family; Referring Provider Emergency Medicine; Visit Provider Student in an Organized Health Care Education/Training Program
DX: U07.1 COVID-19 (principal); E43 Unspecified severe protein-calorie malnutrition; J12.82 Pneumonia due to coronavirus disease 2019; J96.01 Acute respiratory failure with hypoxia; J90 Pleural effusion, not elsewhere classified; E87.20 Acidosis, unspecified; N39.0 Urinary tract infection, site not specified; K70.10 Alcoholic hepatitis without ascites; E03.9 Hypothyroidism, unspecified; E87.6 Hypokalemia; I95.9 Hypotension, unspecified; F10.97 Alcohol use, unspecified with alcohol-induced persisting dementia; B96.20 Unspecified Escherichia coli [E. coli] as the cause of diseases classified elsewhere; Y90.0 Blood alcohol level of less than 20 mg/100 ml; Z66 Do not resuscitate; Z68.20 Body mass index [BMI] 20.0-20.9, adult
CPT/HCPCS: 0241U; 36415; 71045; 71260; 74177; 80053; 80074; 80320; 81015; 82607; 83605; 83615; 83735; 83880; 84145; 84157; 84439; 84443; 84484; 85025; 85379; 85610; 87070; 87075; 87077; 87086; 87186; 87205; 89051; 93005; 93010; 94760; 96365; 97162; 97530; 99285; J1100; J1650; J2060; J3475

== ENCOUNTER 2023-03-21 05:16 | Inpatient (IN) | payer MEDICARE, OTHER, SELFPAY ==
[2023-02-25 16:22] VITALS: BMI 20.7
[2023-03-21] VITALS (37 sets, daily range): BP systolic 88–116; BP diastolic 58–78; PULSE 101–124; RESP 19–32; TEMP 36.4–37.3; O2SAT 87–94; BMI 21.3
--- NOTE | 2023-03-21 05:41 | ED.GENADULT ---
HPI - General Adult <Azeb Martin MD - Last Filed: 03/24/23 02:00> General Chief complaint: Weakness Stated complaint: dehydrated, pool of blood when using restroom Time Seen by Provider: 03/21/23 05:41 Source: patient and family Mode of arrival: Wheelchair History of Present Illness HPI narrative: 72-year-old woman with a history of alcohol use disorder, alcoholic hepatitis, cognitive impairment versus depression, hypothyroidism, significant malnutrition recent hospitalization for COVID presents with acute melena. Apparently after hospital discharge on February 28 with COVID,weakness, malnutrition, and sepsis patient has continued to be quite weak. She is drinking very little fluid including alcohol. Her notes that she will open a bottle of [employer] lemonade and drank approximately half a bit over the course day. She is eating very little. They have seen there outpatient provider and follow up. They do recognize that she is getting close to the end of her life and they were hoping for ?a few more months? after hospital discharge. She is DNR. Neither she nor her report any vomiting. She has had persistent slight dry cough since hospital discharge. Patient is not complaining of any pain. Related Data Home Medications Medication Instructions Recorded Confirmed levothyroxine 125 mcg tablet 150 mcg PO DAILY 05/04/22 03/21/23 Previous Rx's Medication Instructions Recorded pantoprazole 40 mg tablet,delayed 40 mg PO DAILY #60 tabs 07/05/21 release folic acid 1 mg tablet 1 mg PO DAILY #30 tabs 02/28/23 thiamine mononitrate (vit B1) 100 100 mg PO DAILY #30 tabs 02/28/23 mg tablet Allergies Allergy/AdvReac Type Severity Reaction Status Date / Time erythromycin base Allergy Severe lips Verified 02/25/23 10:18 swelled up Review of Systems <Azeb Martin MD - Last Filed: 03/24/23 02:00> Review of Systems Narrative: Pertinent positive and negative findings as per HPI Patient History <Azeb Martin MD - Last Filed: 03/24/23 02:00> Medical History Cirrhosis COVID-19 virus infection Esophageal dyskinesia Upper GI bleed Hypothyroid Surgical History History of dental surgery Hx of tonsillectomy Social History household members: spouse Smoking Status: Never smoker alcohol intake: current Smoking Status: Never smoker alcohol intake frequency: 3 or more drinks per day Alcohol type: wine Substance Use Type: does not use Exam <Azeb Martin MD - Last Filed: 03/24/23 02:00> Initial Vital Signs Initial Vital Signs: Vital Signs Temperature 99.1 F 03/21/23 05:23 Pulse Rate 124 H 03/21/23 05:23 Respiratory Rate 20 03/21/23 05:23 Blood Pressure 93/58 L 03/21/23 05:23 Pulse Oximetry 93 03/21/23 05:23 Oxygen Delivery Method Room Air 03/21/23 05:23 General: Cachectic, quite dry, dry cough, pleasantly confused HEENT: Dry mucous membranes, normal sclera with reactive pupils, Neck: No JVD, no cervical adenopathy Respiratory: Lungs are essentially clear to auscultation, minor scattered wheezing and pops on the left with significantly diminished to no appreciable breath sounds on the right. Cardiac: Regular rate and rhythm no murmurs no bruits Abdomen: Soft, nontender, liver edge palpable, spleen does not feel enlarged. No rebound or guarding. Rectal exam has dark red blood coming from the rectum Skin: Slightly jaundiced, quite dry, poor skin turgor Neurologic: Moving all extremities, confused, globally weak Extremities: No trauma, exceptionally thin Psych: Cooperative, oriented to person but not events <Tracey Mcnamara DO - Last Filed: 03/21/23 13:34> Initial Vital Signs Initial Vital Signs: Vital Signs Temperature 99.1 F 03/21/23 05:23 Pulse Rate 124 H 03/21/23 05:23 Respiratory Rate 20 03/21/23 05:23 Blood Pressure 93/58 L 03/21/23 05:23 Pulse Oximetry 93 03/21/23 05:23 Oxygen Delivery Method Room Air 03/21/23 05:23 Procedures <Aezb Martin MD - Last Filed: 03/24/23 02:00> Central Line Placement Right IJ: Time of procedure: 06:53 Time Out Performed: Yes Patient Placed on Monitor/Pulse Ox: Yes MD Prep: mask, gown and gloves Central Line Prep: Chlorhexidine scrub Local Anesthetic: lidocaine 1% Amount of anesthesia used (mL): 3 Ultrasound Used for Placement: Yes Central Line Lumen Inserted: triple Post Procedure: sutured in place, good blood return, all ports aspirated, flushed, capped, sterile dressing applied and line stabilization device Post Procedure X-Ray: tip of catheter in good position and other (Complete whiteout right side of the lung, presumed pleural effusion. No tension physiology or midline shift) Patient Tolerated Procedure: Well Course <Azeb Martin MD - Last Filed: 03/24/23 02:00> Orders Ordered: Acetaminophen (Acetaminophen Susp 650 Mg/20.3 Ml Udc) 650 mg PO Q6H PRN PRN Reason: Fever/Mild Pain (1-3) Last Admin: 03/23/23 20:57 Dose: 650 mg Documented By: Admin: 03/22/23 10:29 Dose: 650 mg Documented By: LINDA Benzocaine (Benzocaine/Menthol 1 Felipa Pkt) 1 each PO Q4HR PRN PRN Reason: Sore Throat Last Admin: 03/23/23 09:25 Dose: 1 each Documented By: Admin: 03/22/23 08:09 Dose: 1 each Documented By: Admin: 03/21/23 23:51 Dose: 1 each Documented By: Admin: 03/21/23 20:16 Dose: 1 each Documented By: ORALIA Guaifenesin (Guaifenesin Solution 100 Mg/5 Ml Udc) 100 mg PO Q4HR PRN PRN Reason: Cough Last Admin: 03/22/23 10:17 Dose: 100 mg Documented By: Admin: 03/21/23 20:16 Dose: 100 mg Documented By: Admin: 03/21/23 13:58 Dose: 100 mg Documented By: LDV Heparin Sodium (Porcine) (Heparin Flush (Cl/Picc/Mid-Line) 50 Unit/5 Ml Syringe) 50 unit IV BID IRIS Last Admin: 03/23/23 20:58 Dose: 50 unit Documented By: Admin: 03/23/23 09:09 Dose: 50 unit Documented By: Admin: 03/22/23 20:51 Dose: 50 unit Documented By: Admin: 03/22/23 08:19 Dose: 50 unit Documented By: LDV Heparin Sodium (Porcine) (Heparin Flush (Cl/Picc/Mid-Line) 50 Unit/5 Ml Syringe) 50 unit IV PRN PRN PRN Reason: Flush Sodium Chloride (Normal Saline 0.9%) 1,000 mls @ 84 mls/hr IV CONT [facility] Last Infusion: 03/23/23 23:29 Dose: 84 mls/hr Documented By: Admin: 03/23/23 23:29 Dose: 84 mls/hr Documented By: Infusion: 03/23/23 23:29 Dose: Infused Documented By: Admin: 03/23/23 12:02 Dose: 84 mls/hr Documented By: BRAD Levothyroxine Sodium (Levothyroxine 75 Mcg Tablet) 150 mcg PO 0600 [facility] Last Admin: 03/23/23 09:08 Dose: 150 mcg Documented By: SB Naloxone HCl (Naloxone 0.4 Mg/Ml Vial) 0.2 mg IV Q2MIN PRN PRN Reason: Opiate Reversal Ondansetron HCl (Ondansetron 4 Mg Odt) 4 mg PO Q8HR PRN PRN Reason: Nausea And Vomiting Pantoprazole Sodium (Pantoprazole Dr 40 Mg Tablet) 40 mg PO DAILY [facility] Last Admin: 03/23/23 09:09 Dose: 40 mg Documented By: BRAD Sodium Chloride (Sodium Chloride 0.9% Flush) 10 ml IV BID [facility] Last Admin: 03/23/23 20:58 Dose: 10 ml Documented By: Admin: 03/23/23 09:09 Dose: 10 ml Documented By: Admin: 03/22/23 20:50 Dose: 10 ml Documented By: Admin: 03/22/23 08:19 Dose: 10 ml Documented By: LDV Sodium Chloride (Sodium Chloride 0.9% Flush) 10 ml IV PRN PRN PRN Reason: Flush Discontinued Medications Acetaminophen (Acetaminophen 325 Mg Tablet) 650 mg PO Q6H PRN PRN Reason: Fever/Mild Pain (1-3) Furosemide (Furosemide 40 Mg/4 Ml Vial) 20 mg IV NOW ONE Stop: 03/21/23 13:48 Last Admin: 03/21/23 13:58 Dose: 20 mg Documented By: LDV Sodium Chloride (Normal Saline 0.9%) 1,000 mls @ 1,000 mls/hr IV BOLUS ONE Stop: 03/21/23 06:56 Last Infusion: 03/21/23 08:04 Dose: Infused Documented By: Admin: 03/21/23 06:55 Dose: 1,000 mls/hr Documented By: SB(2) POTASSIUM CHLORIDE IN WATER (Potassium Cl 10 Meq/100 Ml Bhavani) 10 meq in 100 mls @ 100 mls/hr IV Q1H [facility] Stop: 03/21/23 22:29 Last Infusion: 03/22/23 01:01 Dose: Infused Documented By: Admin: 03/21/23 23:28 Dose: 100 mls/hr Documented By: Infusion: 03/21/23 22:47 Dose: Infused Documented By: Admin: 03/21/23 21:47 Dose: 100 mls/hr Documented By: AM POTASSIUM CHLORIDE IN WATER (Potassium Cl 10 Meq/100 Ml Bhavani) 10 meq in 100 mls @ 100 mls/hr IV Q1H [facility] Stop: 03/22/23 12:59 Last Admin: 03/22/23 09:48 Dose: Not Given Documented By: LDV POTASSIUM CHLORIDE IN WATER (Potassium Cl 10 Meq/100 Ml Bhavani) 10 meq in 100 mls @ 100 mls/hr IV Q1H [facility] Stop: 03/22/23 15:29 Last Admin: 03/22/23 17:26 Dose: 100 mls/hr Documented By: Infusion: 03/22/23 16:56 Dose: Infused Documented By: Admin: 03/22/23 15:56 Dose: 100 mls/hr Documented By: Infusion: 03/22/23 15:09 Dose: Infused Documented By: Admin: 03/22/23 14:09 Dose: 100 mls/hr Documented By: Infusion: 03/22/23 13:18 Dose: Infused Documented By: Admin: 03/22/23 12:18 Dose: 100 mls/hr Documented By: LDV Magnesium Sulfate (Magnesium Sulfate) 2 gm in 50 mls @ 25 mls/hr IV NOW ONE Stop: 03/22/23 11:14 Last Admin: 03/22/23 09:22 Dose: 25 mls/hr Documented By: LDV Co-signed By: RUFINO Pantoprazole Sodium (Pantoprazole 40 Mg Vial) 80 mg IV NOW ONE Stop: 03/21/23 05:58 Last Admin: 03/21/23 06:55 Dose: 80 mg Documented By: SB(2) Pantoprazole Sodium (Pantoprazole 40 Mg Vial) 40 mg IV BID IRIS Last Admin: 03/23/23 10:50 Dose: Not Given Documented By: Admin: 03/22/23 20:50 Dose: 40 mg Documented By: Admin: 03/22/23 08:18 Dose: 40 mg Documented By: Admin: 03/21/23 20:08 Dose: 40 mg Documented By: AM Potassium Chloride (Potassium Chloride 20 Meq Tab) 40 meq PO NOW ONE Stop: 03/21/23 19:15 Last Admin: 03/21/23 20:29 Dose: Not Given Documented By: AM Potassium Chloride (Potassium Chloride 20 Meq Tab) 20 meq PO NOW ONE Stop: 03/23/23 07:46 Last Admin: 03/23/23 09:09 Dose: 20 meq Documented By: SB Vital Signs Vital signs: Vital Signs - 8 hr 03/21/23 05:35 03/21/23 05:35 03/21/23 06:00 Pulse Rate 119 H Respiratory Rate Blood Pressure 105/77 102/74 Pulse Oximetry 92 03/21/23 06:00 03/21/23 06:30 03/21/23 06:30 Pulse Rate 109 H 110 H Respiratory Rate 25 H 30 H Blood Pressure 102/70 Pulse Oximetry 87 L 93 03/21/23 07:00 03/21/23 07:00 03/21/23 07:30 Pulse Rate 107 H Respiratory Rate 23 Blood Pressure 102/75 102/74 Pulse Oximetry 94 03/21/23 07:30 03/21/23 08:00 03/21/23 08:01 Pulse Rate 104 H 106 H Respiratory Rate 27 H 30 H Blood Pressure 116/78 Pulse Oximetry 91 91 03/21/23 08:30 03/21/23 08:30 03/21/23 08:40 Pulse Rate 105 H Respiratory Rate 25 H Blood Pressure 95/70 88/60 L Pulse Oximetry 92 03/21/23 08:40 03/21/23 08:50 03/21/23 08:50 Pulse Rate 104 H 103 H Respiratory Rate 24 24 Blood Pressure 91/70 Pulse Oximetry 91 92 03/21/23 09:00 03/21/23 09:00 03/21/23 09:10 Pulse Rate 102 H Respiratory Rate 24 Blood Pressure 94/70 97/68 Pulse Oximetry 91 03/21/23 09:10 03/21/23 09:20 03/21/23 09:20 Pulse Rate 102 H 104 H Respiratory Rate 23 21 Blood Pressure 97/67 Pulse Oximetry 92 91 03/21/23 09:30 03/21/23 09:30 Pulse Rate 102 H Respiratory Rate 23 Blood Pressure 89/66 L Pulse Oximetry 91 <Tracey Mcnamara, - Last Filed: 03/21/23 13:34> Orders Ordered: Acetaminophen (Acetaminophen Susp 650 Mg/20.3 Ml Udc) 650 mg PO Q6H PRN PRN Reason: Fever/Mild Pain (1-3) Last Admin: 03/23/23 20:57 Dose: 650 mg Documented By: Admin: 03/22/23 10:29 Dose: 650 mg Documented By: LINDA Benzocaine (Benzocaine/Menthol 1 Felipa Pkt) 1 each PO Q4HR PRN PRN Reason: Sore Throat Last Admin: 03/23/23 09:25 Dose: 1 each Documented By: Admin: 03/22/23 08:09 Dose: 1 each Documented By: Admin: 03/21/23 23:51 Dose: 1 each Documented By: Admin: 03/21/23 20:16 Dose: 1 each Documented By: ORALIA Guaifenesin (Guaifenesin Solution 100 Mg/5 Ml Udc) 100 mg PO Q4HR PRN PRN Reason: Cough Last Admin: 03/22/23 10:17 Dose: 100 mg Documented By: Admin: 03/21/23 20:16 Dose: 100 mg Documented By: Admin: 03/21/23 13:58 Dose: 100 mg Documented By: MIGUEL Heparin Sodium (Porcine) (Heparin Flush (Cl/Picc/Mid-Line) 50 Unit/5 Ml Syringe) 50 unit IV BID IRIS Last Admin: 03/23/23 20:58 Dose: 50 unit Documented By: Admin: 03/23/23 09:09 Dose: 50 unit Documented By: Admin: 03/22/23 20:51 Dose: 50 unit Documented By: Admin: 03/22/23 08:19 Dose: 50 unit Documented By: MIGUEL Heparin Sodium (Porcine) (Heparin Flush (Cl/Picc/Mid-Line) 50 Unit/5 Ml Syringe) 50 unit IV PRN PRN PRN Reason: Flush Sodium Chloride (Normal Saline 0.9%) 1,000 mls @ 84 mls/hr IV CONT [facility] Last Infusion: 03/23/23 23:29 Dose: 84 mls/hr Documented By: Admin: 03/23/23 23:29 Dose: 84 mls/hr Documented By: Infusion: 03/23/23 23:29 Dose: Infused Documented By: Admin: 03/23/23 12:02 Dose: 84 mls/hr Documented By: BRAD Levothyroxine Sodium (Levothyroxine 75 Mcg Tablet) 150 mcg PO 0600 [facility] Last Admin: 03/23/23 09:08 Dose: 150 mcg Documented By: SB Naloxone HCl (Naloxone 0.4 Mg/Ml Vial) 0.2 mg IV Q2MIN PRN PRN Reason: Opiate Reversal Ondansetron HCl (Ondansetron 4 Mg Odt) 4 mg PO Q8HR PRN PRN Reason: Nausea And Vomiting Pantoprazole Sodium (Pantoprazole Dr 40 Mg Tablet) 40 mg PO DAILY [facility] Last Admin: 03/23/23 09:09 Dose: 40 mg Documented By: SB Sodium Chloride (Sodium Chloride 0.9% Flush) 10 ml IV BID [facility] Last Admin: 03/23/23 20:58 Dose: 10 ml Documented By: Admin: 03/23/23 09:09 Dose: 10 ml Documented By: Admin: 03/22/23 20:50 Dose: 10 ml Documented By: Admin: 03/22/23 08:19 Dose: 10 ml Documented By: LDV Sodium Chloride (Sodium Chloride 0.9% Flush) 10 ml IV PRN PRN PRN Reason: Flush Discontinued Medications Acetaminophen (Acetaminophen 325 Mg Tablet) 650 mg PO Q6H PRN PRN Reason: Fever/Mild Pain (1-3) Furosemide (Furosemide 40 Mg/4 Ml Vial) 20 mg IV NOW ONE Stop: 03/21/23 13:48 Last Admin: 03/21/23 13:58 Dose: 20 mg Documented By: LDV Sodium Chloride (Normal Saline 0.9%) 1,000 mls @ 1,000 mls/hr IV BOLUS ONE Stop: 03/21/23 06:56 Last Infusion: 03/21/23 08:04 Dose: Infused Documented By: Admin: 03/21/23 06:55 Dose: 1,000 mls/hr Documented By: SB(2) POTASSIUM CHLORIDE IN WATER (Potassium Cl 10 Meq/100 Ml Bhavani) 10 meq in 100 mls @ 100 mls/hr IV Q1H [facility] Stop: 03/21/23 22:29 Last Infusion: 03/22/23 01:01 Dose: Infused Documented By: Admin: 03/21/23 23:28 Dose: 100 mls/hr Documented By: Infusion: 03/21/23 22:47 Dose: Infused Documented By: Admin: 03/21/23 21:47 Dose: 100 mls/hr Documented By: AM POTASSIUM CHLORIDE IN WATER (Potassium Cl 10 Meq/100 Ml Bhavani) 10 meq in 100 mls @ 100 mls/hr IV Q1H [facility] Stop: 03/22/23 12:59 Last Admin: 03/22/23 09:48 Dose: Not Given Documented By: LDV POTASSIUM CHLORIDE IN WATER (Potassium Cl 10 Meq/100 Ml Bhavani) 10 meq in 100 mls @ 100 mls/hr IV Q1H [facility] Stop: 03/22/23 15:29 Last Admin: 03/22/23 17:26 Dose: 100 mls/hr Documented By: Infusion: 03/22/23 16:56 Dose: Infused Documented By: Admin: 03/22/23 15:56 Dose: 100 mls/hr Documented By: Infusion: 03/22/23 15:09 Dose: Infused Documented By: Admin: 03/22/23 14:09 Dose: 100 mls/hr Documented By: Infusion: 03/22/23 13:18 Dose: Infused Documented By: Admin: 03/22/23 12:18 Dose: 100 mls/hr Documented By: LDV Magnesium Sulfate (Magnesium Sulfate) 2 gm in 50 mls @ 25 mls/hr IV NOW ONE Stop: 03/22/23 11:14 Last Admin: 03/22/23 09:22 Dose: 25 mls/hr Documented By: LDV Co-signed By: RUFINO Pantoprazole Sodium (Pantoprazole 40 Mg Vial) 80 mg IV NOW ONE Stop: 03/21/23 05:58 Last Admin: 03/21/23 06:55 Dose: 80 mg Documented By: SB(2) Pantoprazole Sodium (Pantoprazole 40 Mg Vial) 40 mg IV BID IRIS Last Admin: 03/23/23 10:50 Dose: Not Given Documented By: Admin: 03/22/23 20:50 Dose: 40 mg Documented By: Admin: 03/22/23 08:18 Dose: 40 mg Documented By: Admin: 03/21/23 20:08 Dose: 40 mg Documented By: AM Potassium Chloride (Potassium Chloride 20 Meq Tab) 40 meq PO NOW ONE Stop: 03/21/23 19:15 Last Admin: 03/21/23 20:29 Dose: Not Given Documented By: AM Potassium Chloride (Potassium Chloride 20 Meq Tab) 20 meq PO NOW ONE Stop: 03/23/23 07:46 Last Admin: 03/23/23 09:09 Dose: 20 meq Documented By: SB Vital Signs Vital signs: Vital Signs - 8 hr 03/21/23 05:35 03/21/23 05:35 03/21/23 06:00 Pulse Rate 119 H Respiratory Rate Blood Pressure 105/77 102/74 Pulse Oximetry 92 03/21/23 06:00 03/21/23 06:30 03/21/23 06:30 Pulse Rate 109 H 110 H Respiratory Rate 25 H 30 H Blood Pressure 102/70 Pulse Oximetry 87 L 93 03/21/23 07:00 03/21/23 07:00 03/21/23 07:30 Pulse Rate 107 H Respiratory Rate 23 Blood Pressure 102/75 102/74 Pulse Oximetry 94 03/21/23 07:30 03/21/23 08:00 03/21/23 08:01 Pulse Rate 104 H 106 H Respiratory Rate 27 H 30 H Blood Pressure 116/78 Pulse Oximetry 91 91 03/21/23 08:30 03/21/23 08:30 03/21/23 08:40 Pulse Rate 105 H Respiratory Rate 25 H Blood Pressure 95/70 88/60 L Pulse Oximetry 92 03/21/23 08:40 03/21/23 08:50 03/21/23 08:50 Pulse Rate 104 H 103 H Respiratory Rate 24 24 Blood Pressure 91/70 Pulse Oximetry 91 92 03/21/23 09:00 03/21/23 09:00 03/21/23 09:10 Pulse Rate 102 H Respiratory Rate 24 Blood Pressure 94/70 97/68 Pulse Oximetry 91 03/21/23 09:10 03/21/23 09:20 03/21/23 09:20 Pulse Rate 102 H 104 H Respiratory Rate 23 21 Blood Pressure 97/67 Pulse Oximetry 92 91 03/21/23 09:30 03/21/23 09:30 Pulse Rate 102 H Respiratory Rate 23 Blood Pressure 89/66 L Pulse Oximetry 91 Medical Decision Making <Azeb Martin MD - Last Filed: 03/24/23 02:00> Lab Data 03/23/23 05:36 03/23/23 05:36 Labs: Lab Results 03/21/23 03/21/23 Range/Units 06:40 08:45 WBC 8.7 (4.5-11.0) X10^3/uL RBC 3.39 L (4.0-5.2) X10^6/uL Hgb 12.3 (12.0-16.0) g/dL Hct 35.9 L (36-46) % MCV 106.1 H (80-100) fL MCH 36.4 H (26-34) PG MCHC 34.4 (30-36) % RDW 12.7 (11.6-14.8) % Plt Count 57 L (150-400) X10^3/uL Neut % (Auto) 76.5 H (50-75) % Lymph % (Auto) 12.9 L (25-40) % [place] % (Auto) 8.9 (3-14) % Eos % (Auto) 0.8 L (2-4) % Baso % (Auto) 0.9 (0-2) % Neut # (Auto) 6600 (0642-0107) /uL Lymph # (Auto) 1100 (7940-7328) /uL [place] # (Auto) 800 (0-900) /uL Eos # (Auto) 100 (0-450) /uL Baso # (Auto) 100 (0-100) /uL Sodium 131 L (137-145) mmol/L Potassium 3.2 L (3.4-5.1) mmol/L Chloride 95 L (98-107) mmol/L Carbon Dioxide 31 (22-32) mmol/L BUN 12 (7-17) mg/dL Creatinine 0.51 L (0.52-1.04) mg/dL Estimated GFR > 60 (>60) mL/min BUN/Creatinine Ratio 23.5 H (6-22) Glucose 118 H (80-110) mg/dL Lactate 2.3 H 1.4 (0.7-2.1) mmol/L Calcium 8.0 L (8.4-10.2) mg/dL Magnesium 1.7 (1.6-2.3) mg/dL Total Bilirubin 2.3 H (0.2-1.3) mg/dL AST 84 H (14-36) IU/L ALT 31 (<35) IU/L Alkaline Phosphatase 113 (38-126) U/L Total Protein 5.0 L (6.3-8.2) g/dL Albumin 2.3 L (3.5-5.0) g/dL Globulin 2.7 (1.7-4.1) g/dL Albumin/Globulin Ratio 0.9 L (1.0-2.8) Lipase 60 (23-300) U/L Ethyl Alcohol < 10 ( - 10) mg/dL Blood Type A Positive Antibody Screen Negative MDM Narrative Medical decision making narrative: CC: Melena Complicating co-morbidities: Recent COVID hospitalization with sepsis, prior history of GI bleeding, alcohol use disorder, known liver disease Data collected from: patient, Social determinants of health that may influence the patients condition: Severe protein malnutrition, decreased oral intake, patient and seemed to understand that she is approaching the end of her life Code status: DNR but fluids, blood, blood work and resuscitation up to that point Medical records reviewed: Discharge summary from recent COVID and sepsis hospitalization March 02 EGD from June of 2021 showing esophagitis, gastritis, duodenitis no reports of esophageal varices Differential considered: Upper GI bleeding, lower GI bleeding, coagulopathy, thrombocytopenia Exam documented above, pertinent findings include: Cachectic 72-year-old woman dehydrated, dry cough no significant pain, dark red blood from her rectum Lab Test results independently reviewed as above. Pertinent findings: Independently reviewed EKG: Imaging studies independently reviewed: Chest x-ray done after central line placement shows appropriately placed line and no pneumothorax. She has pleural effusion on the right side that has completely opacified the entire right side of her thorax. There is no midline shift. Consultations: Treatments: Multiple attempts at peripheral lines, ultrasound-guided peripheral lines all unsuccessful due to significant dehydration. Right internal jugular central line is placed without complication. Internal jugular is significantly dilated. Re-evaluations:655am patient was noted to have a moderate pleural effusion with fluid approximately mcfp up lung granger on the right side on March 02. Today the entire right hemithorax is filled with pleural fluid. Patient is slightly tachypneic at a rate of 30 but saturations on room air 93%. She is slightly tachycardic at 110. Discussion: 72-year-old woman with recent hospitalization for COVID pneumonia, right pleural effusion failing since hospital discharge. Has been drinking far less alcohol but has also been eating almost nothing and drinking no additional fluids. She is globally weak, dizzy when she stands, orthostatic, tachypneic but not dramatically hypoxic. She got up to the bathroom and was found on the floor by her presumably after a syncopal episode with quite a bit of melena. She has not complaining of any pain. No nausea has had no vomiting. In discussing goals of care and end of life issues it sounds like her and the patient herself are quite aware that she is getting closer to the end of her life, they were hoping to get ?another couple of months? after recent discharge from the hospital. Description of behaviors over the last week certainly sound like she is actively dying with far decreased appetite, weakness. Central line is placed, fluids ordered, labs are currently pending. Patient is turned over to Dr. Mcnamara at change of shift. Of note she has a large right pleural effusion. Think a significant discussion regarding continued goals of care and treatment with perhaps palliative consultation may be appropriate. If she wants to be more aggressive than draining at least part of that pleural effusion may be helpful in alleviating some of her overall symptoms. At this point she seems actually minimally symptomatic with essentially only 1 functional lung. <Tracey Mcnamara, DO - Last Filed: 03/21/23 13:34> Lab Data Labs: Lab Results 03/21/23 03/21/23 Range/Units 06:40 08:45 WBC 8.7 (4.5-11.0) X10^3/uL RBC 3.39 L (4.0-5.2) X10^6/uL Hgb 12.3 (12.0-16.0) g/dL Hct 35.9 L (36-46) % MCV 106.1 H (80-100) fL MCH 36.4 H (26-34) PG MCHC 34.4 (30-36) % RDW 12.7 (11.6-14.8) % Plt Count 57 L (150-400) X10^3/uL Neut % (Auto) 76.5 H (50-75) % Lymph % (Auto) 12.9 L (25-40) % [place] % (Auto) 8.9 (3-14) % Eos % (Auto) 0.8 L (2-4) % Baso % (Auto) 0.9 (0-2) % Neut # (Auto) 6600 (3272-6689) /uL Lymph # (Auto) 1100 (9065-4278) /uL [place] # (Auto) 800 (0-900) /uL Eos # (Auto) 100 (0-450) /uL Baso # (Auto) 100 (0-100) /uL Sodium 131 L (137-145) mmol/L Potassium 3.2 L (3.4-5.1) mmol/L Chloride 95 L (98-107) mmol/L Carbon Dioxide 31 (22-32) mmol/L BUN 12 (7-17) mg/dL Creatinine 0.51 L (0.52-1.04) mg/dL Estimated GFR > 60 (>60) mL/min BUN/Creatinine Ratio 23.5 H (6-22) Glucose 118 H (80-110) mg/dL Lactate 2.3 H 1.4 (0.7-2.1) mmol/L Calcium 8.0 L (8.4-10.2) mg/dL Magnesium 1.7 (1.6-2.3) mg/dL Total Bilirubin 2.3 H (0.2-1.3) mg/dL AST 84 H (14-36) IU/L ALT 31 (<35) IU/L Alkaline Phosphatase 113 (38-126) U/L Total Protein 5.0 L (6.3-8.2) g/dL Albumin 2.3 L (3.5-5.0) g/dL Globulin 2.7 (1.7-4.1) g/dL Albumin/Globulin Ratio 0.9 L (1.0-2.8) Lipase 60 (23-300) U/L Ethyl Alcohol < 10 ( - 10) mg/dL Blood Type A Positive Antibody Screen Negative MDM Narrative Medical decision making narrative: CC: Melena Complicating co-morbidities: Recent COVID hospitalization with sepsis, prior history of GI bleeding, alcohol use disorder, known liver disease Data collected from: patient, Social determinants of health that may influence the patients condition: Severe protein malnutrition, decreased oral intake, patient and seemed to understand that she is approaching the end of her life Code status: DNR but fluids, blood, blood work and resuscitation up to that point Medical records reviewed: Discharge summary from recent COVID and sepsis hospitalization March 02 EGD from June of 2021 showing esophagitis, gastritis, duodenitis no reports of esophageal varices Differential considered: Upper GI bleeding, lower GI bleeding, coagulopathy, thrombocytopenia Exam documented above, pertinent findings include: Cachectic 72-year-old woman dehydrated, dry cough no significant pain, dark red blood from her rectum Lab Test results independently reviewed as above. Pertinent findings: Independently reviewed EKG: Imaging studies independently reviewed: Chest x-ray done after central line placement shows appropriately placed line and no pneumothorax. She has pleural effusion on the right side that has completely opacified the entire right side of her thorax. There is no midline shift. Consultations: Treatments: Multiple attempts at peripheral lines, ultrasound-guided peripheral lines all unsuccessful due to significant dehydration. Right internal jugular central line is placed without complication. Internal jugular is significantly dilated. Re-evaluations:655am patient was noted to have a moderate pleural effusion with fluid approximately mcfp up lung granger on the right side on March 02. Today the entire right hemithorax is filled with pleural fluid. Patient is slightly tachypneic at a rate of 30 but saturations on room air 93%. She is slightly tachycardic at 110. Discussion: 72-year-old woman with recent hospitalization for COVID pneumonia, right pleural effusion failing since hospital discharge. Has been drinking far less alcohol but has also been eating almost nothing and drinking no additional fluids. She is globally weak, dizzy when she stands, orthostatic, tachypneic but not dramatically hypoxic. She got up to the bathroom and was found on the floor by her presumably after a syncopal episode with quite a bit of melena. She has not complaining of any pain. No nausea has had no vomiting. In discussing goals of care and end of life issues it sounds like her and the patient herself are quite aware that she is getting closer to the end of her life, they were hoping to get ?another couple of months? after recent discharge from the hospital. Description of behaviors over the last week certainly sound like she is actively dying with far decreased appetite, weakness. Central line is placed, fluids ordered, labs are currently pending. Patient is turned over to Dr. Mcnamara at change of shift. Of note she has a large right pleural effusion. Think a significant discussion regarding continued goals of care and treatment with perhaps palliative consultation may be appropriate. If she wants to be more aggressive than draining at least part of that pleural effusion may be helpful in alleviating some of her overall symptoms. At this point she seems actually minimally symptomatic with essentially only 1 functional lung. March 21, 2023 Naima: Patient seen and evaluated by myself. Has known liver cirrhosis has been continuing to worsen has had very minimal intake globally weak, dizzy orthostatic tachypneic but not hypoxic. Recent hospitalization for COVID pneumonia with recurrent right pleural effusion had thoracentesis several weeks ago appears to have recurred and is the entire right lung. Patient deferring thoracentesis currently. She also had sounds like melanotic stool at home. Patient and family are clear that she is DNR/DNI what is minimal interventions, she has not currently interested in thoracentesis if it is likely to Re accumulate but we did discuss it can be done for comfort. Patient does not wish to pursue EGD this time. They are showing some interest in hospice. IT TRAINING SPECIALIST consult was placed. Discussed with hospitalist Dr. Ch about keeping overnight. Spoke with Dr. Ch who accepts for observation. He did discuss with Dr. Vera about scope they state they would not recommend. Patient's own GI specialist has also recommended not to scope in the future as well which patient and family really. IT TRAINING SPECIALIST consult in place. Discharge Plan Departure Patient Disposition: Admitted as Observation Clinical Impression: Acute upper gastrointestinal bleeding, Pleural effusion, Cirrhosis of liver, Melena Admit Date/Time: 03/21/23 12:40 Admit Provider: David Ch
--- NOTE | 2023-03-21 06:46 | DI.RAD.S_ITS ---
PROCEDURE: XR CHEST 1V INDICATIONS: verify central line TECHNIQUE: One view of the chest was acquired. COMPARISON: [facility], CR, XR CHEST 1V, 02/26/2023, 16:41. [facility], CR, XR CHEST 1V, 02/25/2023, 12:21. FINDINGS: Surgical changes and devices: Right IJ central venous catheter tip projects over low SVC. Lungs and pleura: Complete opacification of the right lung, likely large pleural effusion. Mediastinum: Mediastinal contours appear normal. Heart size is normal. Bones and chest wall: No suspicious bony lesions. Overlying soft tissues appear unremarkable. IMPRESSION: Right IJ central venous catheter tip projects over the low SVC. Complete opacification the right lung, likely large pleural effusion. Agree with preliminary report. Dictated by: Je Miles M.D. on 03/21/2023 at 9:21 Approved by: Je Miles M.D. on 03/21/2023 at 9:24
--- NOTE | 2023-03-21 06:51 | PC.NURSE ---
Pressure injectable three-lumen CVC. 7 fr, 3 lumen, 20 cm, 0.032 seth
[2023-03-21] MEDS: PANTOPRAZOLE 40 MG VIAL 80 MG IV (06:55)
[2023-03-21] MEDS: SODIUM CHLORIDE 0.9% 1,000 ML 1000 ML IV (06:55)
[2023-03-21 07:05] LABS: Alanine Aminotransferase 31 IU/L (<35); Albumin 2.3 g/dL (3.5-5.0); Albumin Globulin Ratio 0.9 (1.0-2.8); Alkaline Phosphatase 113 U/L (38-126); Aspartate Aminotransferase 84 IU/L (14-36); BUN Creatinine Ratio 23.5 (6-22); Bilirubin Total 2.3 mg/dL (0.2-1.3); Blood Urea Nitrogen 12 mg/dL (7-17); Carbon Dioxide 31 mmol/L (22-32); Chloride 95 mmol/L (98-107); Estimated Glomerular Filt Rate > 60 mL/min (>60); Ethanol (ETOH) < 10 mg/dL; Globulin 2.7 g/dL (1.7-4.1); Glucose 118 mg/dL (80-110); HEMOLYSIS 41 (0-50); Lactate (Lactic Acid) 2.3 mmol/L (0.7-2.1); Lipase 60 U/L (23-300); Magnesium 1.7 mg/dL (1.6-2.3); Potassium 3.2 mmol/L (3.4-5.1); Sodium 131 mmol/L (137-145)
[2023-03-21 07:06] LABS: Add Manual Diff / Slide Review NO; Basophils Absolute Auto 100 /uL (0-100); Basophils Percent Auto 0.9 % (0-2); Eosinophils Absolute Auto 100 /uL (0-450); Eosinophils Percent Auto 0.8 % (2-4); Hematocrit 35.9 % (36-46); Hemoglobin 12.3 g/dL (12.0-16.0); Lymphocytes Absolute Auto 1100 /uL (1100-4500); Lymphocytes Percent Auto 12.9 % (25-40); Mean Corpuscular HGB Conc 34.4 % (30-36); Mean Corpuscular Hemoglobin 36.4 PG (26-34); Mean Corpuscular Volume 106.1 fL (80-100); Monocytes Absolute Auto 800 /uL (0-900); Monocytes Percent Auto 8.9 % (3-14); Neutrophils Absolute Auto 6600 /uL (1500-7000); Neutrophils Percent Auto 76.5 % (50-75); Platelet Count 57 X10^3/uL (150-400); Red Blood Cell Count 3.39 X10^6/uL (4.0-5.2); Red Cell Distribution Width 12.7 % (11.6-14.8); White Blood Cell Count 8.7 X10^3/uL (4.5-11.0)
--- NOTE | 2023-03-21 08:03 | PC.NURSE ---
purewick placed; pt education given
[2023-03-21 08:28] LABS: Reflexed Lactate in 2 Hours Y
[2023-03-21 09:02] LABS: Lactate 2HR (Lactic Acid Rflx) 1.4 mmol/L (0.7-2.1)
--- NOTE | 2023-03-21 10:16 | PC.NURSE ---
EMBEDDED SOFTWARE MANAGER note: with the assistance of MAGY kimball, this director talent management provided pericare and placed purewick on pt. and placed barrier pad and brief underneath pt. educated pt. on use of purewick.
--- NOTE | 2023-03-21 12:30 | PC.NURSE ---
INTERNATIONAL MANAGER note: this caption writer provided pericare to pt., pt.had bloody stool. RN notified
--- NOTE | 2023-03-21 13:00 | PM.HP.1 ---
History of Present Illness History of Present Illness Date Patient Seen: 03/21/23 Time Patient Seen: 12:10 Chief complaint: dehydrated, pool of blood when using restroom Narrative: Cindy Kent is a 72yo F with PMH of alcoholism, hypothyroidism, GERD, and mild cog impairment who presented after an episode of possible melena. Early this morning patient was trying to get to the bathroom but did not make it and had a puddle of dark liquid stool on the floor. She denies abdominal pain or hematemesis, nausea or vomiting. She continues to drink but at most drinks 1 sylvie's hard lemonade now over the course of the day. She is not interested in cessation, she does not get shaky when she doesn't drink now. Spouse reports continued decline and weight loss even prior to her COVID infection recently. She has chronic issues with swallowing, follows with GI, but have been limited with interventions due to continued drinking. She has had inability to tolerate much solid intake over the couse of the past few months. She also reports worsening leg swelling, mild dyspnea, but profound fatigue. Also with chronic cough, unchanged, no new shortness of breath reported. [facility] Medical History Cirrhosis COVID-19 virus infection Esophageal dyskinesia Upper GI bleed Hypothyroid Surgical History History of dental surgery Hx of tonsillectomy Social History household members: spouse Smoking Status: Never smoker alcohol intake: current Meds Home Medications and Allergies Home Medications Medication Instructions Recorded Confirmed Type pantoprazole 40 mg tablet,delayed 40 mg PO DAILY #60 tabs 07/05/21 03/21/23 Rx release levothyroxine 125 mcg tablet 150 mcg PO DAILY 05/04/22 03/21/23 History folic acid 1 mg tablet 1 mg PO DAILY #30 tabs 02/28/23 03/21/23 Rx thiamine mononitrate (vit B1) 100 100 mg PO DAILY #30 tabs 02/28/23 03/21/23 Rx mg tablet Allergies Allergy/AdvReac Type Severity Reaction Status Date / Time erythromycin base Allergy Severe lips Verified 02/25/23 10:18 swelled up Review of Systems Review of Systems Narrative: All other systems reviewed with the patient and are negative unless otherwise stated. Exam Vital Signs (past 8 hours): - 03/21/23 05:23 03/21/23 05:35 03/21/23 05:35 Temperature 99.1 F Pulse Rate 124 H 119 H Respiratory Rate 20 Blood Pressure 93/58 L 105/77 Pulse Oximetry 93 92 Oxygen Delivery Method Room Air 03/21/23 06:00 03/21/23 06:00 03/21/23 06:30 Temperature Pulse Rate 109 H Respiratory Rate 25 H Blood Pressure 102/74 102/70 Pulse Oximetry 87 L Oxygen Delivery Method 03/21/23 06:30 03/21/23 07:00 03/21/23 07:00 Temperature Pulse Rate 110 H 107 H Respiratory Rate 30 H 23 Blood Pressure 102/75 Pulse Oximetry 93 94 Oxygen Delivery Method 03/21/23 07:30 03/21/23 07:30 03/21/23 08:00 Temperature Pulse Rate 104 H 106 H Respiratory Rate 27 H 30 H Blood Pressure 102/74 Pulse Oximetry 91 91 Oxygen Delivery Method 03/21/23 08:01 03/21/23 08:30 03/21/23 08:30 Temperature Pulse Rate 105 H Respiratory Rate 25 H Blood Pressure 116/78 95/70 Pulse Oximetry 92 Oxygen Delivery Method 03/21/23 08:40 03/21/23 08:40 03/21/23 08:50 Temperature Pulse Rate 104 H Respiratory Rate 24 Blood Pressure 88/60 L 91/70 Pulse Oximetry 91 Oxygen Delivery Method 03/21/23 08:50 03/21/23 09:00 03/21/23 09:00 Temperature Pulse Rate 103 H 102 H Respiratory Rate 24 24 Blood Pressure 94/70 Pulse Oximetry 92 91 Oxygen Delivery Method 03/21/23 09:10 03/21/23 09:10 03/21/23 09:20 Temperature Pulse Rate 102 H Respiratory Rate 23 Blood Pressure 97/68 97/67 Pulse Oximetry 92 Oxygen Delivery Method 03/21/23 09:20 03/21/23 09:30 03/21/23 09:30 Temperature Pulse Rate 104 H 102 H Respiratory Rate 21 23 Blood Pressure 89/66 L Pulse Oximetry 91 91 Oxygen Delivery Method Oxygen Delivery Method Room Air Narrative Exam Narrative: Gen: chronically ill appearing female, no acute distress CV: tachycardic, regular rhythm, no mr/g Pulm: decreased breath sounds R lung Abd: soft, mild distension, no tenderness Ext: 1+ edema b/l LE. Objective Labs 03/21/23 06:40 03/21/23 06:40 Labs: Laboratory Results - last 24 hr 03/21/23 03/21/23 06:40 08:45 WBC 8.7 RBC 3.39 L Hgb 12.3 Hct 35.9 L MCV 106.1 H MCH 36.4 H MCHC 34.4 RDW 12.7 Plt Count 57 L Neut % (Auto) 76.5 H Lymph % (Auto) 12.9 L [place] % (Auto) 8.9 Eos % (Auto) 0.8 L Baso % (Auto) 0.9 Neut # (Auto) 6600 Lymph # (Auto) 1100 [place] # (Auto) 800 Eos # (Auto) 100 Baso # (Auto) 100 Sodium 131 L Potassium 3.2 L Chloride 95 L Carbon Dioxide 31 BUN 12 Creatinine 0.51 L Estimated GFR > 60 BUN/Creatinine Ratio 23.5 H Glucose 118 H Lactate 2.3 H 1.4 Calcium 8.0 L Magnesium 1.7 Total Bilirubin 2.3 H AST 84 H ALT 31 Alkaline Phosphatase 113 Total Protein 5.0 L Albumin 2.3 L Globulin 2.7 Albumin/Globulin Ratio 0.9 L Lipase 60 Ethyl Alcohol < 10 Blood Type A Positive Antibody Screen Negative Assessment & Plan Assessment & Plan narrative: # alcoholic hepatitis vs cirrhosis with volume overload - patient has had declining EtOH intake but continues to drink a small amount daily - Improved labs since prior admission slightly. - no indication for steroids - previous imaging not consistent with cirrhosis, has had multiple indeterminant biopsies with outpatient GI, but clinically presents as cirrhotic patient - start diuresis with IV furosemide for now #melena - Hg 12.3, no ongoing episodes - continue IV PPI BID - not currently recommended for endoscopy after discussion with general surgeon, reconsult if further episodes come about - okay for regular diet # daily alcohol use - advised cessation, no desire to stop. # mild cognitive impairment # hypothyroidism - continue home levothyroxine # malnutrition - Dietary and INDUSTRY CONSULTANT consultations. #recurrent R pleural effusion - Consider thoracentesis, but patient wishes to try to avoid procedure after discussion. She is not hypoxic and symptoms seem fairly stable so attempt for removal with diresusis is reasonable. - continue diuresis as noted above. - TTE ordered to evaluate for possible heart failure as an underlying etiology as well #hyponatremia, hypokalemia, thrombocytopenia - likely due to decreased oral intake, EtOH use Code: DNR, surrogate is patient's spouse DVT: SCDs given plt of 57 on admit I have utilized all available immediate resources to obtain, update, or review the patient's current medications. Dispo: admitted observation, pending above evaluation may meet inpatient. Discussed with ER provider and spouse for additional history and to formulate the above assessment and plan. Reviewed patient's presenting labs, imaging, documentation, and imaging personally.
--- NOTE | 2023-03-21 13:34 | CM.IDA ---
Initial DCP Assessment Note Patient is 72 y/o female who presents to the ED with spouse do to concern to patient's weakness and patient found on the ground in a pool of blood or unknown bodily fluid per spouse. It is reported that patient has minimal food or fluid intake due to difficulty swallowing and keeping foods down. Patient's PCP is Dr. Dara Peters, Patient has [facility] and [employer] insurance. Patient has hx of alcohol use disorder, alcoholic hepatitis, cognitive impairment versus depression, hypothyroidism, significant malnutrition recent hospitalization for COVID and respiratory failure in February 2023. VICE PRESIDENT OF SALES enters room to meet with patient. Patient presents as A/Ox4 but refers to spouse Allen to answer questions. Spouse endorses that patient experienced decreased food intake and weakness since last hospitalization in February. Patient resides with spouse and spouse is primary caregiver. It is reported that with assistance patient can transfer from bedroom to living room and ambulate to bathroom. Patient uses cane but they have a FWW at home that patient can start using if needed. It is reported that patient was going to outpatient PT in [place] weekly but patient does not engage in PT exercises, patient states he cancelled all upcoming outpatient appts today. Spouse endorses he liked the benefit of patient getting out the house for socialization as patient does not typically leave the house. Spouse endorses significant change in patient's socialization as they used to go out and have gatherings all of the time. Spouse states that the only recent visitors have been their balcony worker and a friend in recent months. It is reported that patient has only been drinking about 8 ounces a day of Hang's Hard Lemonade and decreased her ETOH intake mostly due to patient's difficulty ingesting food and beverages. Spouse reports that patient usually eats/drinks half a bottle of ensure a day and 4-6 ounces of gaterade, and barely any water. Per previous DCP assessment, patient and spouse do not have any local family, and patient's sister resides in [place]. Patient has Advanced Directive paperwork in EMR listing Allen as DPOA, patient clearly states she is DNI/DNR and patient made a statement I want to go in reference to end of life. VICE PRESIDENT OF SALES discusses HH vs. Hospice and private pay caregivers, spouse states he has senior resource guide from previous admission. VICE PRESIDENT OF SALES explains that Hospice can support patient is staying comfortable at home. Spouse states he has had a hospice conversation with PCP and at this time he is not certain about it. Spouse and patient would benefit from further goals of care conversation with Hospitalist and DCP team. Spouse states that the goal is for patient to stay at home. Spouse presents with hesitancy about visitors in the home due pets in the home. Patient has been admitted by hospitalist for observation, possible consult to Dr. Vera regarding a scope. Plan: DCP to f/u with POC and further discussion with spouse and patient regarding Hospice vs. HH upon d/c. ECTOR Su Discharge Planning/Care Management CM Discharge Assessment Start: 03/21/23 13:27 Freq: Status: Active Protocol: Document 03/21/23 13:28 LN (Rec: 03/21/23 13:34 LN [id number]) Discharge Planning Assessment Assigned Slip Maker ECTOR Garcia DPOA/Assigned Designee Name Allen - Spouse Contact Information [phone] Advance Directives? Yes: advance directive Advance Directives on File Yes History Provided By Patient,Significant Other, Medical Record Has Patient been admitted in last 30 Yes days? Comment Patient was admitted on due to concern Covid and respiratory failure. Prior Living Arrangements House Household Members spouse Comment Patient has big dog, several cats and a parrot. Spouse indicates that their animals may be a deterrent to in home services. Type of transporation used prior to Relies on Others admit Independent with ADL's No Is patient alert and oriented? Yes Needs Assistance With Meal Prep,Home Chores / Shopping Caregiver for Another No DME Already Rented / Owned Cane Comment Patient uses can and has walker from prior ankle fx couple years ago but does not typically use Comment Patient has been going to weekly outpatient PT but spouse cancelled all upcoming appts due to concern for patient's symptoms leading to ED visit. Discharge Plan Home Transportation Arrangement Spouse bedside and plans to transport at d/c Additional Comment Home Health vs. Hospice discussion briefly discussed in ED, spouse does not seem ready to make a decision. Review Status In Process Please Provide Date Initial DC 03/21/23 Assessment Was Performed
[2023-03-21] MEDS: guaiFENesin Solution 100 MG/5 ML UDC PO ×2 (13:58→20:16)
[2023-03-21] MEDS: FUROSEMIDE 40 MG/4 ML VIAL 20 MG IV (13:58)
[2023-03-21 15:36] LABS: COVID19 - ADMIT (NP swab/PCR) Negative (Negative)
--- NOTE | 2023-03-21 16:12 | ST.IPCSEOM ---
Visit Care Team Role Provider Type ELISE Lopez Primary Care Provider Non-Staff Specialty: Nursing Address: [address] [place] [address], [id number] Email: Deidre Wills MD Family Provider Non-Staff Specialty: Family Practice Address: [address] [place] [address], [facility] Email: Tracey Mcnamara DO Emergency Provider Physician Referring Provider Specialty: Emergency Medicine Address: [address] [place] [address] Email: [email or web address] Ch DO Admit Provider Physician Attending Provider Specialty: Internal Medicine Address: [address] [place] [address] Email: [email or web address] Past Medical History (Last Reviewed 03/21/23 @ 06:50 by Azeb Martin MD) Cirrhosis (Medical) COVID-19 virus infection (Medical) Hospitalized February 2023 Esophageal dyskinesia (Medical) Hypothyroid (Medical) Upper GI bleed (Medical) Speech-Language Pathology Swallow Evaluation HYGIENE COORDINATOR Clinical Swallow Evaluation Start: 03/21/23 14:55 Freq: Status: Active Protocol: Document 03/21/23 14:55 MA (Rec: 03/21/23 15:07 MA [id number]) Clinical Swallow Evaluation Session Time Visit Start Time 14:30 Visit Stop Time 15:00 Total Visit Minutes 30 Visit Information Visit Number Initial Eval Referral Referring Provider Dr. David Ch Reason for Referral Dysphagia Setting Assessment Location Acute Care Visit Type Note Type Initial evaluation Next Note Type Next Note Type Treatment Note Patient Information Identification Type Name,Wristband History Per H&P: Chief complaint: dehydrated, pool of blood when using restroom. Cindy Kent is a 72yo F with PMH of alcoholism, hypothyroidism, GERD, and mild cog impairment PMHx significant for: Cirrhosis COVID-19 virus infection Esophageal dyskinesia Upper GI bleed Hypothyroid Pt had a [place] barium swallow test on 05/13/22 with the following: IMPRESSION: 1. Moderate gastroesophageal reflux. 2. Mild esophageal dysmotility. 3. Small sliding hiatal hernia . Pt referred for ST evaluation d/t Pt with baseline cough and reports of swallowing difficulties. Subjective Observations Pt sitting upright in bed, awake, alert, oriented to person, time and place. She reported the wrong city by stating [place]. She reports hx of swallowing difficulty, specifically swallowing feels hard. She reports she has not been consuming any solids the past 1-2months and consumes primarily Ensures and other liquids. She reports weight loss. Pt with decreased participation as evaluation went on d/t increased fatigue and her declining most PO trials and requesting Leave me alone, I just want to sleep . She reports when she has consumed solids at home they are primarily soft. Pt with coughing reflex prior to PO trials. Nursing reports she was dx with COVID the end of February. Pt reports coughing has been happening since COVID . The IDDSI Framework Protocol: IDDSI.1 Objective Assessment Mental Status Alert,Responsive,Lethargic Oral Integrity WFL Dentition Lower dentures/partials Comment Pt with generalized lingual and labial weakness and reduced ROM. Natural teeth upper, good condition, dentures bottom. Food and Liquid Trials Position During Assessment Upright (90 degrees) Liquids Trialed Thin (IDDSI 0) Solid Trials Easy to Chew (IDDSI 7) Administration Type Straw,Self-feeding Oral Impairment Mildly impaired Oral Phase Comments ST positioned Pt upright in bed with use of bed controls for initiation of PO trials. Pt compliant with consuming 1 bite of a soft chewy bar and 4 oz of thin water via straw. Due to swallowing difficulties with chewy bar she declined further PO trials of pureed solids. For chewy bar she demonstrated small bite, prolonged mastication, extended ap transport, mild oral stasis. For thin water via straw, Pt demonstrated adequate suction, good oral acceptance and containment. Pharyngeal Impairment Severely impaired Pharyngeal Phase Comments For chewy bar Pt demonstrated immediate gagging/retching. Pt reported she could not swallow it. For thin water via straw she demonstrated suspected delay in swallow, variable laryngeal elevation, clear vocal quality. Pt with cough prior to PO trials with ST unable to determine if d/t baseline cough or from liquids Fatigue/Endurance Moderate fatigue The IDDSI Framework Protocol: IDDSI.1 Findings Swallowing Function Oropharyngeal phase dysphagia Severity of Swallow Impairment Moderately-severely impaired Prognosis Fair Impact on Safety and Functioning Risk for inadequate nutrition/ hydration Recommendations Instrumental Assessment Yes Swallowing Treatment Yes Frequency Daily while inpatient Recommended Liquids Thin (IDDSI 0) Other Recommendations ST recommends full thin liquids at this time. Nursing and MD notified. ST recommends MBS. Safety Precautions/Swallowing Remain upright (90 degrees) Recommendations during all oral intake,Upright position at least 30 minutes after meals,Strict oral care after intake Medication Recommendations As Tolerated Education Patient/Caregiver Education Described results of evaluation,Patient requires further education/training Goals Short-term Goals STG 1: Patient will utilize safe swallowing strategies 90% of the time with minimal verbal cues in order to consume safest and most efficient least restrictive diet. STG 2: Pt will tolerate prescribed diet with <5% overt s/s of aspiration/dysphagia with use of compensatory swallowing strategies and minimal cues. Long-term Goals LTG: Patient will tolerate safest and most efficient diet with no clinical s/s of aspiration or dysphagia 100% of the time in order to consume least restrictive diet .
--- NOTE | 2023-03-21 16:56 | DI.ECHO.S_ITS ---
[place] [facility]---------+ [facility] +---------+ : : [address] : [address] : : : : [id number] : : : : Phone: [phone]+ Echocardiogram Report + + :Name: REFUGIO APARICIO Study Date: 03/23/2023 Height: 61 in : :[facility] ReadingLocation: Weight: 113 lb: : Gender: Female BSA: 1.5 m2 : :: 1950 Age: 72 yrs : :Reason For Study: SHORTNESS OF BREATH : :Ordering Physician: ERMELINDA LUNA : :DENAE Performed By: Liss Brown : :Referring: ERMELINDA LUNA : + + Interpretation Summary 1) Normal left ventricular thickness, size, wall motion, and systolic function (EF 60-65%). 2) Normal right ventricular size and function. 3) No significant valvular abnormalities. 4) There is a large pleural effusion. 5) No prior Echo available for comparison. Procedure: A two-dimensional transthoracic echocardiogram with color flow and Doppler was performed. The study quality was technically adequate. There is no prior echocardiogram noted for this patient. The patient was in sinus rhythm with heart rates between 84-98 bpm during the exam. Left Ventricle: Proximal septal thickening is noted. The left ventricle is normal in size and wall thickness. The ejection fraction is estimated to be 60-65%. Left ventricular systolic function appears normal without focal wall motion abnormalities. Right Ventricle: The right ventricle is normal in size and function. Atria: The left atrial size is normal. Right atrial size is normal. There is no Doppler evidence for an interatrial shunt. Mitral Valve: The mitral valve is normal in structure and function. There is trace mitral regurgitation. Aortic Valve: The aortic valve is trileaflet. There is no aortic valve stenosis. There is trace aortic regurgitation. Tricuspid Valve: The tricuspid valve is normal in structure and function. There is mild tricuspid regurgitation. Right ventricular systolic pressure is estimated to be 16 mmHg plus the clinically estimated CVP which cannot be estimated on this exam. Pulmonic Valve: The pulmonic valve is not well seen, but is grossly normal. There is trace pulmonic regurgitation. Great Vessels: The aortic root is normal size. The dimensions of the ascending aorta are normal. The inferior vena cava was not well visualized. Pericardium/ Pleura There is no pericardial effusion. There is a large pleural effusion. MMode/2D Measurements & Calculations LVIDd: 4.0 cm LVOT diam: 2.0 cm LVIDs: 2.5 cm Ao root diam: 2.9 cm FS: 35.9 % asc Aorta Diam: 3.2 cm IVSd: 0.70 cm LVPWd: 0.80 cm LV gipson. diameter/BSA (cm/m^2): 2.7 LV sys. diameter/BSA (cm/m^2): 1.7 LA A2 area: 8.2 cm2 RA long axis: 2.8 cm LA A4 area: 7.1 cm2 RA area: 8.4 cm2 LA length (vol): 3.1 cm RA vol: 20.9 ml LA vol: 16.0 ml RA : 14.1 ml/m2 LA vol index: 10.8 ml/m2 IVC diam: 0.74 cm RVD1 (basal): 3.5 cm RVD2 (mid): 2.6 cm TAPSE: 2.2 cm Doppler Measurements & Calculations Ao V2 max: 124.0 cm/sec LVOT Max Arnav: 89.2 cm/sec Ao V2 mean: 86.4 cm/sec LV V1 max P.2 mmHg Ao max P.1 mmHg LV V1 VTI: 18.9 cm Ao mean P.4 mmHg FERMÍN(I,D): 2.2 cm2 Ao V2 VTI: 26.6 cm FERMÍN(V,D): 2.2 cm2 sev ratio: 0.71 FERMÍN indexed to BSA (cm^2/m^2): 1.5 MV E max arnav: 65.3 cm/sec TR max arnav: 198.2 cm/sec MV A max arnav: 64.0 cm/sec TR max P.7 mmHg MV E/A: 1.0 PA V2 max: 85.4 cm/sec Med Peak E' Arnav: 6.6 cm/sec PA V2 mean: 58.8 cm/sec E/E' med: 9.9 PA mean P.5 mmHg Lat Peak E' Arnav: 6.1 cm/sec PA pr(Accel): 32.8 mmHg E/E' lat: 10.8 E/e' average: 10.3 MV dec time: 0.17 sec SV(LVOT): 59.1 ml Reading Physician:08:44 AM
[2023-03-21 18:36] LABS: Hematocrit 33.1 % (36-46); Hemoglobin 11.5 g/dL (12.0-16.0)
[2023-03-21 19:08] LABS: Appearance Urine UA CLEAR; Bilirubin Urine UA NEGATIVE (NEGATIVE); Color Urine UA YELLOW; Glucose Urine UA NEGATIVE (Negative); Ketones Urine UA NEGATIVE (NEGATIVE); Leukocyte Esterase Urine UA NEGATIVE (NEGATIVE); Nitrite Urine UA NEGATIVE (Negative); Occult Blood Urine UA 3+ (Negative); Protein Urine UA NEGATIVE (Negative); Urobilinogen Urine UA 0.2 E.U./dL (0.2)
[2023-03-21 19:11] LABS: pH Urine UA 5.5 (4.5-8.0)
[2023-03-21 19:16] LABS: Amorphous Sediment Urine 2+; Bacteria Urine None Seen; Culture Indicated Urine Cult Not Indicated; RBC Urine 5-10/HPF (0-5/HPF); Squamous Epithelial Cell Urine None Seen (0-5/HPF); Urine Volume 10mL (spun); WBC Urine None Seen (0-5/HPF)
[2023-03-21] MEDS: PANTOPRAZOLE 40 MG VIAL IV (20:08)
[2023-03-21] MEDS: BENZOCAINE/MENTHOL 1 LOZ PKT 1 EACH PO ×2 (20:16→23:51)
[2023-03-21] MEDS: POTASSIUM CHLORIDE IN WATER 10 MEQ/100 ML PIGGYBACK 100 MEQ IV ×2 (21:47→23:28)
[2023-03-22 00:27] VITALS: BP 98/65; PULSE 105; RESP 32; TEMP 35.9; O2SAT 92
[2023-03-22 04:30] VITALS: BP 95/63; PULSE 96; RESP 24; TEMP 36.4; O2SAT 91
[2023-03-22 06:10] LABS: Add Manual Diff / Slide Review NO; Basophils Absolute Auto 0 /uL (0-100); Basophils Percent Auto 0.3 % (0-2); Eosinophils Absolute Auto 100 /uL (0-450); Eosinophils Percent Auto 0.9 % (2-4); Hematocrit 29.1 % (36-46); Lymphocytes Absolute Auto 1700 /uL (1100-4500); Lymphocytes Percent Auto 20.3 % (25-40); Mean Corpuscular HGB Conc 34.2 % (30-36); Mean Corpuscular Volume 105.1 fL (80-100); Monocytes Absolute Auto 800 /uL (0-900); Monocytes Percent Auto 9.9 % (3-14); Neutrophils Absolute Auto 5900 /uL (1500-7000); Neutrophils Percent Auto 68.6 % (50-75); Platelet Count 185 X10^3/uL (150-400); Red Blood Cell Count 2.77 X10^6/uL (4.0-5.2); Red Cell Distribution Width 12.6 % (11.6-14.8); White Blood Cell Count 8.6 X10^3/uL (4.5-11.0)
[2023-03-22 06:14] LABS: Alanine Aminotransferase 26 IU/L (<35); Albumin Globulin Ratio 0.8 (1.0-2.8); Alkaline Phosphatase 93 U/L (38-126); Aspartate Aminotransferase 65 IU/L (14-36); BUN Creatinine Ratio 23.2 (6-22); Blood Urea Nitrogen 13 mg/dL (7-17); Calcium 7.4 mg/dL (8.4-10.2); Carbon Dioxide 31 mmol/L (22-32); Chloride 99 mmol/L (98-107); Estimated Glomerular Filt Rate > 60 mL/min (>60); Globulin 2.4 g/dL (1.7-4.1); Glucose 97 mg/dL (80-110); HEMOLYSIS < 15 (0-50); Magnesium 1.6 mg/dL (1.6-2.3); Potassium 3.2 mmol/L (3.4-5.1); Sodium 132 mmol/L (137-145); Total Protein 4.4 g/dL (6.3-8.2)
[2023-03-22 07:51] LABS: TSH w/ Reflex to FT4 9.15 uIU/mL (0.47-4.68)
[2023-03-22] MEDS: BENZOCAINE/MENTHOL 1 LOZ PKT 1 EACH PO (08:09)
[2023-03-22] MEDS: PANTOPRAZOLE 40 MG VIAL IV ×2 (08:18→20:50)
[2023-03-22 08:19] VITALS: BP 91/62; PULSE 71; RESP 22; TEMP 36.3; O2SAT 91
[2023-03-22] MEDS: SODIUM CHLORIDE 0.9% FLUSH 10 ML IV ×2 (08:19→20:50)
[2023-03-22 08:23] LABS: Free T4, Direct Thyroxine 1.52 ng/dL (0.78-2.19)
--- NOTE | 2023-03-22 09:05 | PT.IIE ---
Current Diagnoses Alcoholic hepatitis without ascites (03/21/23) Surgical History (Last Reviewed 03/21/23 @ 06:50 by Azeb Martin MD) History of dental surgery Hx of tonsillectomy Medical History (Last Reviewed 03/21/23 @ 06:50 by Azeb Martin MD) Cirrhosis COVID-19 virus infection Esophageal dyskinesia Hypothyroid Upper GI bleed Physical Therapy Inpatient Evaluation/Re-Eval M1 PT/OT-IP Prior Functional Status Start: 03/22/23 13:23 Freq: NEEDED Status: Active Protocol: Document 03/22/23 09:05 AB (Rec: 03/22/23 13:36 [id number]) Medical Review Prior Functional Status Medical History Reviewed Yes Communication able to make needs known; with confusion Mobility and Gait pt stated that she was needing assistance with mobility and spouse provides assistance. stated that she was able to use a quad cane for ambulation and spouse on the other side holding on to her to assist; spouse provides 30/08 assist to pt Social History Household Members spouse Living Arrangements House Number of Floors (Floors) One Floor Number of Stairs To Enter/Railing? 4 steps wide bilateral rails and can only hold on to one rail at a time Home Environment Standard Height Toilet,Walk in Shower Home Equipment Front Wheel Walker,Quad Cane, Shower Seat without Backrest, Hand Held Shower,Grab Bars Near Toilet,Grab Bars In Shower M2 PT-IP Current Condition Start: 03/22/23 13:23 Freq: NEEDED Status: Active Protocol: Document 03/22/23 09:05 AB (Rec: 03/22/23 13:36 [id number]) Physical Therapy Current Condition Current Condition Evaluation Date 03/22/23 Treatment Diagnosis GI bleed; difficulty in walking Onset Date 03/21/23 M3 PT-IP Subjective Start: 03/22/23 13:23 Freq: NEEDED Status: Active Protocol: Document 03/22/23 09:05 AB (Rec: 03/22/23 13:36 [id number]) Subjective Physical Therapy Visit Type Type Initial Evaluation Visit Start Time 09:05 Visit Stop Time 10:00 Number of SOLE STAINER Visits 55 Physical Therapy Visit Comments Patient Comments agreeable to do PT M4 PT-IP Mobility and Gait Start: 03/22/23 13:23 Freq: NEEDED Status: Active Protocol: Document 03/22/23 09:05 AB (Rec: 03/22/23 13:36 AB [id number]) PT-Bed Mobility Assessment Supine to Sit Supine to Sit Minimal Assistance Sit to Supine Sit to Supine Maximum Assistance PT-Transfer Assessment Sit to and From Stand Sit to and from Stand Minimal Assistance Equipment Transfer Assistive Device Gait Belt,Front Wheeled Walker Orthotic/Prosthetic Devices or Brace: No Comments Mobility Comments pt supine in bed and stated that she is cold. agreed to do PT but wants to go back to bed afterwards. obtained PLOF and home set upt from pt. spouse arrived after a few mintues and confirmed that he assists pt with all mobilities as needed. BP in supine: 93/66. completed supine to sit min A and cues. able to sit on EOB CGA. BP checked: 100/67. no c/o dizziness/lightheadedness. completed sit to standn min A and ambulated in room ~ 12 ft using fWW min A. pt sat back on the EOB and want to lie back down. completed sit to supine max A with LE elevation . positioned pt in bed. call light and table placed within reach. Gait Assessment Gait Gait Assistance Required: Minimum Assistance Distance (Feet) 12 Assistive Devices Assistive Device Gait Belt,Front Wheeled Walker Orthotic/Prosthetic Devices or Brace: No Gait Deviations General Gait Pattern Decreased Stride Length, Decreased Feet Clearance Factors Limiting Gait Function Factors Limiting Gait Function Decreased Activity Tolerance, Decreased Strength,Difficulty Following Directions,Poor Balance,Poor Safety Awareness PT-Balance Assessment Sitting Balance and Reactions Static Sitting Balance Ability Good Dynamic Sitting Balance Ability Fair Standing Balance and Reactions Static Standing Balance Ability Fair Dynamic Standing Balance Ability Fair Device Used FWW M5 PT-IP Objective Assessments Start: 03/22/23 13:23 Freq: NEEDED Status: Active Protocol: Document 03/22/23 09:05 AB (Rec: 03/22/23 13:36 AB [id number]) Orientation Orientation/Cognition Level of Alertness Confusional State Orientation Name,Place,Situation Language Function Ability No Deficits Noted Safety Awareness Decreased Safety Awareness Memory Description Short Term Impaired Gross Range of Motion Lower Extremity ROM Assessment Within Functional Limits Strength Lower Extremity Strength Hip 3+/5 Knee 3+/5 Muscle Tone Muscle Tone WNL Yes M6 PT-IP Treatment Start: 03/22/23 13:23 Freq: NEEDED Status: Active Protocol: Document 03/22/23 09:05 AB (Rec: 03/22/23 13:36 AB [id number]) Physical Therapy Treatment Education Education Provided Safety M7 PT-IP Assessment and Plan Start: 03/22/23 13:23 Freq: NEEDED Status: Active Protocol: Document 03/22/23 09:05 AB (Rec: 03/22/23 13:36 AB [id number]) PT Summary Assessment and Plan Potential Rehabilitation Potential Fair Status of Condition at Evaluation Evolving Summary Impairments Pain,ROM,Strength,Balance, Coordination,Sensation,Tone, Cognition,Bed Mobility, Transfers,Gait,Activity Tolerance Assessment Summary pt is a 72 y/o F who presented to the ED due to melena and admitted fro GI bleed. pt with decrease food intake per spouse. pt requiring min to max A for bed mobility and min A for transfers and ambualtion using FWW. spouse assists pt at home and provides 24/7 assist to pt. pt will benefit from HHPT. will continue to assess progress. Goals Bed Mobility Goal Independent Transfer Goal Independent,Front Wheeled Walker Gait Goal Independent,Front Wheel Walker Gait Distance 50 Other Goals improve transfers/ambulation using quad cane 150 ft SBA up/down 4 steps 1 rail SBA Days to Meet Goals 10 Frequency of Treatment Frequency Of Treatment Once a Day Treatment Plan Physical Therapy Treatment Plan Bed Mobility Training,Transfer Training,Gait Training, Therapeutic Exercise,Balance Retraining,Discharge Planning, Hot or Cold Pack,Neuromuscular Re-ed,Coordination Retraining ,Manual Therapy Precautions Other Precautions falls Recommendations To Nursing Amount of Assist Needed 1 Person Assist Discharge Recommendations PT Discharge Recommendations Home with 24/7 Assist Available,Home Health Transportation Needs at Discharge Private Vehicle,Wheelchair/ Cabulance
[2023-03-22] MEDS: MAGNESIUM SULFATE 2 GM/50 ML PIGGYBACK IV (09:22)
--- NOTE | 2023-03-22 10:08 | PM.PN.1 ---
Subjective Subjective Interval history: Confused, denies pain or dyspnea. Exam Vital Signs (past 8 hours): - 03/22/23 04:30 03/22/23 04:30 03/22/23 08:19 Temperature 97.5 F L Pulse Rate 96 H Respiratory Rate 24 Blood Pressure 95/63 Pulse Oximetry 91 91 91 Oxygen Delivery Method Room Air Room Air Oxygen Flow Rate 0 0 03/22/23 08:19 Temperature 97.3 F L Pulse Rate 71 Respiratory Rate 22 Blood Pressure 91/62 Pulse Oximetry 91 Oxygen Delivery Method Oxygen Flow Rate Oxygen Delivery Method Room Air Oxygen Flow Rate 0 Narrative Exam Narrative: Cachectic and weak. NAD Lungs clear CV regular Abdomen distended and NT No leg edema Jaundiced Objective Labs 03/22/23 05:52 03/22/23 05:52 Labs: Laboratory Results - last 24 hr 03/21/23 03/21/23 03/21/23 14:48 18:27 19:01 WBC RBC Hgb 11.5 L Hct 33.1 L MCV MCH MCHC RDW Plt Count Neut % (Auto) Lymph % (Auto) [place] % (Auto) Eos % (Auto) Baso % (Auto) Neut # (Auto) Lymph # (Auto) [place] # (Auto) Eos # (Auto) Baso # (Auto) Sodium Potassium Chloride Carbon Dioxide BUN Creatinine Estimated GFR BUN/Creatinine Ratio Glucose Calcium Magnesium Total Bilirubin AST ALT Alkaline Phosphatase Total Protein Albumin Globulin Albumin/Globulin Ratio TSH Free T4 Urine Color Yellow Urine Appearance Clear Urine pH 5.5 Ur Specific [place] 1.010 Urine Protein Negative Urine Glucose (UA) Negative Urine Ketones Negative Urine Occult Blood 3+ H Urine Nitrate Negative Urine Bilirubin Negative Urine Urobilinogen 0.2 Ur Leukocyte Esterase Negative Urine RBC 5-10/hpf H Urine WBC None seen Ur Squamous Epith Cells None seen Amorphous Sediment 2+ Urine Bacteria None seen Ur Culture Indicated? Cult not indicated Vol Urine Centrifuged 10ml (spun) SARS-CoV-2 (PCR) Negative 03/22/23 05:52 WBC 8.6 RBC 2.77 L Hgb 10.0 L Hct 29.1 L MCV 105.1 H MCH 36.0 H MCHC 34.2 RDW 12.6 Plt Count 185 Neut % (Auto) 68.6 Lymph % (Auto) 20.3 L [place] % (Auto) 9.9 Eos % (Auto) 0.9 L Baso % (Auto) 0.3 Neut # (Auto) 5900 Lymph # (Auto) 1700 [place] # (Auto) 800 Eos # (Auto) 100 Baso # (Auto) 0 Sodium 132 L Potassium 3.2 L Chloride 99 Carbon Dioxide 31 BUN 13 Creatinine 0.56 Estimated GFR > 60 BUN/Creatinine Ratio 23.2 H Glucose 97 Calcium 7.4 L Magnesium 1.6 Total Bilirubin 2.0 H AST 65 H ALT 26 Alkaline Phosphatase 93 Total Protein 4.4 L Albumin 2.0 L Globulin 2.4 Albumin/Globulin Ratio 0.8 L TSH 9.15 H Free T4 1.52 Urine Color Urine Appearance Urine pH Ur Specific [place] Urine Protein Urine Glucose (UA) Urine Ketones Urine Occult Blood Urine Nitrate Urine Bilirubin Urine Urobilinogen Ur Leukocyte Esterase Urine RBC Urine WBC Ur Squamous Epith Cells Amorphous Sediment Urine Bacteria Ur Culture Indicated? Vol Urine Centrifuged SARS-CoV-2 (PCR) [facility] Medical History Cirrhosis COVID-19 virus infection Esophageal dyskinesia Upper GI bleed Hypothyroid Surgical History History of dental surgery Hx of tonsillectomy Social History household members: spouse Smoking Status: Never smoker alcohol intake: current Assessment & Plan Assessment & Plan narrative: Alcoholic hepatitis or cirrhosis with volume overload, present on admission and active. - patient has had declining EtOH intake but continues to drink a small amount daily - Improved labs since prior admission slightly. - no indication for steroids - previous imaging not consistent with cirrhosis, has had multiple indeterminant biopsies with outpatient GI, but clinically presents as cirrhotic patient Melena, present on admission and active. - Hg 12.3, no ongoing episodes - continue IV PPI BID - not currently recommended for endoscopy after discussion with general surgeon, reconsult if further episodes come about - okay for regular diet - too ill to eat or drink. Severe alcohol use disorder, present on admission and active. - advised cessation, no desire to stop. Mild cognitive impairment, present on admission and active. Hypothyroidism, stable. - continue home levothyroxine Malnutrition, present on admission and active. - Dietary and [employer] consultations. Recurrent R pleural effusion, present on admission and active. - Consider thoracentesis, but patient wishes to try to avoid procedure after discussion. She is not hypoxic and symptoms seem fairly stable so attempt for removal with diresusis is reasonable. - continue diuresis as noted above. - TTE ordered to evaluate for possible heart failure as an underlying etiology as well Hyponatremia, hypokalemia, thrombocytopenia , present on admission and active. - likely due to decreased oral intake, EtOH use Code: DNR, surrogate is patient's spouse DVT: SCDs given plt of 57 on admit I have utilized all available immediate resources to obtain, update, or review the patient's current medications. She is likely going to be a candidate for comfort measures. Met with nara and began discussions. Time Spent With Patient Time with patient: 30 to 49 minutes with 50% spent counseling/coordinating care Quality VTE Deep Vein Thrombosis/Pulmonary Embolism Present on Admission: No
[2023-03-22] MEDS: guaiFENesin Solution 100 MG/5 ML UDC PO (10:17)
[2023-03-22] MEDS: ACETAMINOPHEN SUSP 650 MG/20.3 ML UDC PO (10:29)
--- NOTE | 2023-03-22 11:00 | DI.RAD.S_ITS ---
PROCEDURE: FL BARIUM SWALLOW W SPEECH INDICATIONS: POSSIBLE ASPIRATION COMPARISON: TECHNIQUE: Examination was conducted in conjunction with speech pathology per standard protocol. In the lateral projection, filming was performed of the patient swallowing. AP projection filming may also be performed with patient swallowing. COMPARISON: Merged With [facility], CR, XR CHEST 1V, 03/21/2023, 6:49. FINDINGS: Function: The patient was exam under fluoroscopy with different consistency of fluid. There is laryngotracheal penetration without angel aspiration. There is pooling of swallowed material with different consistency in vallecula. Morphology: No cricopharyngeal bar is identified. No cervical esophageal webs. No Zenker's diverticulum. No strictures. IMPRESSION: 1. Trace laryngeal penetration. No angel aspiration. 2. There is vallecular pooling. 3. Please see separate report by speech pathologist. Dictated by: Fermin Choi M.D. on 03/22/2023 at 12:37 Approved by: Fermin Choi M.D. on 03/22/2023 at 12:45
--- NOTE | 2023-03-22 11:28 | CM.DPC ---
DCP Cont. Reviewed EMR and team rounds for pt's status updates. Met with pt and spouse at bedside to introduce self and role. Pt had a swall eval this morning, and is getting ready for a barium swallow eval in the next hour. CLAM GROWER will continue to follow and assist with final d/c recommendations for either SNF rehab vs. home w/hospice. No further updates at this time.
[2023-03-22] MEDS: POTASSIUM CHLORIDE IN WATER 10 MEQ/100 ML PIGGYBACK 100 MEQ IV ×4 (12:18→17:26)
--- NOTE | 2023-03-22 12:25 | OT.IPNOTE ---
Per hospitalist, pt is comfort care and ok to discharge OT evals orders.
--- NOTE | 2023-03-22 13:40 | PT-IP ANOTE ---
OT informed PT that hospitalist stated that pt will be going to be comfort care. PT already completed evaluation prior to being notified. Talked with the doctor and stated that pt is still not on comfort care but is going toward comfort care and stated that pt can continue PT for now.
[2023-03-22 14:50] VITALS: BP 92/59; PULSE 69; RESP 22; O2SAT 88
--- NOTE | 2023-03-22 16:54 | ST.SWALLOW ---
Visit Care Team Role Provider Type ELISE Lopez Primary Care Provider Non-Staff Specialty: Nursing Address: [address] [place] [address], [id number] Email: Deidre Wills MD Family Provider Non-Staff Specialty: Family Practice Address: [address] [place] [address], [id number] Email: Tracey Mcnamara DO Emergency Provider Physician Referring Provider Specialty: Emergency Medicine Address: [address] [place] [address], [facility] Email: [email or web address] David Ch DO Admit Provider Physician Attending Provider Specialty: Internal Medicine Address: [address] [place] [address] Email: [email or web address] Modified Barium Swallow Study WATCH CASE POLISHER Modified Barium Swallow Study Start: 03/22/23 11:38 Freq: Status: Active Protocol: Document 03/22/23 11:39 CG (Rec: 03/22/23 15:22 CG [id number]) Modified Barium Swallow Study Total Time Visit Start Time 14:30 Visit Stop Time 15:00 Total Visit Minutes [address] David Ch Reason for Referral Dysphagia Patient Information Patient History Per H&P: Chief complaint: dehydrated, pool of blood when using restroom. Cindy Kent is a 72yo F with PMH of alcoholism, hypothyroidism, GERD, and mild cog impairment PMHx significant for: Cirrhosis COVID-19 virus infection Esophageal dyskinesia Upper GI bleed Hypothyroid Pt had a [place] barium swallow test on 05/13/22 with the following: IMPRESSION: 1. Moderate gastroesophageal reflux. 2. Mild esophageal dysmotility. 3. Small sliding hiatal hernia . Pt referred for ST evaluation d/t Pt with baseline cough and reports of swallowing difficulties, and completed bedside swallow evaluation with WATCH CASE POLISHER Reggie Maynard. During interview with WATCH CASE POLISHER, pt reported hx of swallowing difficulty, specifically swallowing feels hard. She reported she has not been consuming any solids the past 1-2months and consumes primarily Ensures and other liquids. She reports weight loss. Pt with decreased participation as evaluation went on d/t increased fatigue and her declining most PO trials and requesting Leave me alone, I just want to sleep . She reports when she has consumed solids at home they are primarily soft. Pt with coughing reflex prior to PO trials. Nursing reports she was dx with COVID the end of February. Pt reports coughing has been happening since COVID . Subjective Observations Pt presents with baseline dry, consistent cough whenever she attempts to speak. Reports this is baseline since covid last month. Pt was monica to radiology suite in fluoro chair from her room. WATCH CASE POLISHER explained procedures of evaluation and role of WATCH CASE POLISHER and radiologist. Pt was agreeable to participate but stated she did not want to try solids. Patient Positioning Position View Lateral Imaging Lateral View Textures Administered Trials Presented Thin Liquid via Spoon (IDDSI 0 ),Thin Liquid via Cup (IDDSI 0 ),Mildly Thick Liquid via Spoon (IDDSI 2),Mildly Thick Liquid via Cup (IDDSI 2), Moderately Thick Liquid via Spoon (IDDSI 3) Barium Tablet No The IDDSI Framework Protocol: IDDSI.1 Oral Impairment Source: The Modified Barium Swallow Impairment Profile (MBSImP??) Lip Closure Interlabial escape; no progression to anterior lip Tongue Control During Bolus Hold Posterior escape of greater than half of bolus Bolus Transport/Lingual Motion Repetitive/disorganized tongue motion Oral Residue Residue collection on oral structures Location Tongue Initiation of Pharyngeal Swallow Bolus head at pyriforms Additional Oral Impairment Observations Trials presented included tsp thin, serial sips thin, cup sip nectar, serial sips nectar , tsp honey. Pudding trial was unavailable and solid trials were omitted due to pt preference. Of note, pt presented with significant posterior escape of the bolus over the posterior lingual surface, with little to no lingual bolus hold across trials. Liquid bolus pooled in the pyriform sinuses for a short period prior to initiation of the pharyngeal swallow. Lingual motion was repetitive and disorganized across multiple trials, appearing tremor-like or shaky during attempts at A-P propulsion. Lingual weakness and discoordination resulted in a collection of residue across the lingual surface, particularly on the posterior 1/3 of the tongue. Pharyngeal Impairment Source: The Modified Barium Swallow Impairment Profile (MBSImP??) Soft Palate Elevation No bolus between soft palate & pharyngeal wall Laryngeal Elevation Part.sup.move.thyroid cart/ part.approx.arytenoids to epiglot.petiole Anterior Hyoid Excursion Partial anterior movement Epiglottic Movement Complete inversion Laryngeal Vestibular Closure Incomplete; narrow column air/ contrast in laryngeal vestibule Pharyngeal Stripping Wave Present - diminished Pharyngoesophageal Segment Opening Complete distention & complete duration; no obstruction of flow Tongue Base Retraction Narrow column of contrast/air betwn tongue base & post. pharyngeal wall Pharyngeal Residue Collection of residue within/ on pharyngeal structures Location Diffuse (>3 areas) Additional Pharyngeal Impairment There is partial superior Observations movement of the thyroid cartilage with partial approximation to the epiglottic petiole in the early swallow. There is incomplete laryngeal vestibule closure which resulted in flash penetration x2, but no aspiration observed. Airway protection did not appear to be impacted by liquid thickness. Epiglottic inversion appeared adequate. Tongue base retraction was moderately weakened. Of most note, pt presented with significant pharyngeal residue in the valleculae and on the base of tongue (in addition to some oral residue along posterior lingual surface) after the swallow. This residue slowly flowed down to pool in pt's pyriform sinuses to create a large pool of residue. Pt did not appear to have sensation of this residue -- when cued to swallow by WATCH CASE POLISHER, she stated there's nothing left to swallow. Structure of the pyriform sinuses appear potentially anomalous with intermittent obstructions of bolus flow not consistent with typical lateral view of pyriform sinuses. WATCH CASE POLISHER reviewed with radiologist who stated he believes this was due to uneven positioning of pt resulting in an artifact in this area. Radiologist stated he was not concerned re masses or diverticulae, though unable to rule out unilateral structural anomaly due to not completing A-P swallow, just esophageal sweep. A/P View The IDDSI Framework Protocol: IDDSI.1 Clinical Impressions Dysphagia Type Oral,Pharyngeal Findings Pt presents with oropharyngeal dysphagia most prominently characterized by moderately severe lingual motor control deficits during the oral phase and significant pharyngeal pooling after the swallow. It is unclear based on this MBSS why the pt is unable to swallow solid foods; however, solids were not trialed due to pt preference. Possible structural anomalies in pyriforms/in area of UES may be further explored with additional imaging; however, unclear if this is consistent with pt's plan of care based on MD report. Based on this MBSS, pt does not present as a high aspiration risk. Recommend continue with full liquid diet as tolerated. Meds recommended in liquid form or crushed in applesauce if tolerated. Rehabilitation Potential Poor Recommendations Diet Liquids Order Thin (IDDSI 0) Diet Order Liquidised (IDDSI 3) Medication Recommendation As Tolerated,Crushed in Carrier,Other Comments Liquid meds if possible
[2023-03-22 20:00] VITALS: O2SAT 92
[2023-03-22 21:28] VITALS: BP 92/64; PULSE 92; RESP 19; TEMP 35.9; O2SAT 90
[2023-03-23] VITALS (8 sets, daily range): BP systolic 85–101; BP diastolic 57–68; PULSE 84–94; RESP 16–20; TEMP 35.9–36.4; O2SAT 92–100
[2023-03-23 05:58] LABS: Add Manual Diff / Slide Review NO; Basophils Absolute Auto 0 /uL (0-100); Basophils Percent Auto 0.5 % (0-2); Eosinophils Absolute Auto 100 /uL (0-450); Eosinophils Percent Auto 1.3 % (2-4); Hematocrit 28.7 % (36-46); Hemoglobin 9.9 g/dL (12.0-16.0); Lymphocytes Absolute Auto 1600 /uL (1100-4500); Lymphocytes Percent Auto 20.9 % (25-40); Mean Corpuscular HGB Conc 34.4 % (30-36); Mean Corpuscular Hemoglobin 36.6 PG (26-34); Mean Corpuscular Volume 106.2 fL (80-100); Monocytes Absolute Auto 700 /uL (0-900); Neutrophils Absolute Auto 5000 /uL (1500-7000); Neutrophils Percent Auto 67.3 % (50-75); Platelet Count 176 X10^3/uL (150-400); Red Blood Cell Count 2.71 X10^6/uL (4.0-5.2); White Blood Cell Count 7.5 X10^3/uL (4.5-11.0)
[2023-03-23 06:27] LABS: Alanine Aminotransferase 27 IU/L (<35); Albumin 2.2 g/dL (3.5-5.0); Albumin Globulin Ratio 0.9 (1.0-2.8); Alkaline Phosphatase 103 U/L (38-126); Aspartate Aminotransferase 75 IU/L (14-36); Blood Urea Nitrogen 15 mg/dL (7-17); Calcium 7.6 mg/dL (8.4-10.2); Carbon Dioxide 27 mmol/L (22-32); Chloride 98 mmol/L (98-107); Estimated Glomerular Filt Rate > 60 mL/min (>60); Globulin 2.4 g/dL (1.7-4.1); Glucose 83 mg/dL (80-110); HEMOLYSIS < 15 (0-50); Magnesium 2.3 mg/dL (1.6-2.3); Potassium 3.5 mmol/L (3.4-5.1); Sodium 133 mmol/L (137-145); Total Protein 4.6 g/dL (6.3-8.2)
--- NOTE | 2023-03-23 07:20 | P.PN_ITS ---
Subjective Subjective Interval history: She feels better. No nausea. No appetite. Less confused. Exam Vital Signs (past 8 hours): - 03/23/23 01:20 03/23/23 01:20 03/23/23 06:00 Temperature 97.5 F L 96.7 F L Pulse Rate 90 84 Respiratory Rate 20 19 Blood Pressure 101/68 101/68 Pulse Oximetry 94 94 96 Oxygen Delivery Method Nasal Cannula Oxygen Flow Rate 2 2 2 03/23/23 06:00 Temperature Pulse Rate Respiratory Rate Blood Pressure Pulse Oximetry 96 Oxygen Delivery Method Nasal Cannula Oxygen Flow Rate 2 Oxygen Delivery Method Nasal Cannula Oxygen Flow Rate 2 Narrative Exam Narrative: NAD, fluent speech. More alert and conversant today. Lungs are clear with normal effort. Heart is regular, no murmur. Abdomen is non-tender. No leg edema. Objective Labs 03/23/23 05:36 03/23/23 05:36 Labs: Laboratory Results - last 24 hr 03/22/23 03/23/23 05:52 05:36 WBC 7.5 RBC 2.71 L Hgb 9.9 L Hct 28.7 L MCV 106.2 H MCH 36.6 H MCHC 34.4 RDW 13.0 Plt Count 176 Neut % (Auto) 67.3 Lymph % (Auto) 20.9 L [place] % (Auto) 10.0 Eos % (Auto) 1.3 L Baso % (Auto) 0.5 Neut # (Auto) 5000 Lymph # (Auto) 1600 [place] # (Auto) 700 Eos # (Auto) 100 Baso # (Auto) 0 Sodium 133 L Potassium 3.5 Chloride 98 Carbon Dioxide 27 BUN 15 Creatinine 0.60 Estimated GFR > 60 BUN/Creatinine Ratio 25.0 H Glucose 83 Calcium 7.6 L Magnesium 2.3 Total Bilirubin 2.0 H AST 75 H ALT 27 Alkaline Phosphatase 103 Total Protein 4.6 L Albumin 2.2 L Globulin 2.4 Albumin/Globulin Ratio 0.9 L TSH 9.15 H Free T4 1.52 PFSH Medical History Cirrhosis COVID-19 virus infection Esophageal dyskinesia Upper GI bleed Hypothyroid Surgical History History of dental surgery Hx of tonsillectomy Social History household members: spouse Smoking Status: Never smoker alcohol intake: current Assessment & Plan Assessment & Plan narrative: Alcoholic hepatitis or cirrhosis with volume overload, present on admission and active. - patient has had declining EtOH intake but continues to drink a small amount daily - Improved labs since prior admission slightly. - no indication for steroids - previous imaging not consistent with cirrhosis, has had multiple indeterminant biopsies with outpatient GI, but clinically presents as cirrhotic patient Melena, present on admission and active. - Hg 12.3, no ongoing episodes. H/H stable. - continue IV PPI BID - not currently recommended for endoscopy after discussion with general surgeon, reconsult if further episodes come about - okay for regular diet - too ill to eat or drink. Severe alcohol use disorder, present on admission and active. - advised cessation, no desire to stop. Mild cognitive impairment, present on admission and active. Hypothyroidism, stable. - continue home levothyroxine Malnutrition, present on admission and active. - Dietary and AUTOMATIC COIL MACHINE OPERATOR consultations. Did all right on MBS. Recurrent Right pleural effusion, present on admission and active. - Considered thoracentesis, but patient wishes to try to avoid procedure after discussion. She is not hypoxic and symptoms seem fairly stable so attempt for removal with diresusis is reasonable. - continue diuresis as noted above. - TTE ordered to evaluate for possible heart failure as an underlying etiology as well Hyponatremia, hypokalemia, thrombocytopenia , present on admission and active. - likely due to decreased oral intake, EtOH use Plan: Continue gentle IV fluids Met with and discussed hospice. We will set up a meeting with hospice. Monitor H&H. Continue PPI. Code: DNR, surrogate is patient's spouse DVT: SCDs given thrombocytopenia on admit Time Spent With Patient Time with patient: 30 to 49 minutes with 50% spent counseling/coordinating care Quality VTE Deep Vein Thrombosis/Pulmonary Embolism Present on Admission: No
[2023-03-23] MEDS: LEVOTHYROXINE 75 MCG TABLET 150 MCG PO (09:08)
[2023-03-23] MEDS: SODIUM CHLORIDE 0.9% FLUSH 10 ML IV ×2 (09:09→20:58)
[2023-03-23] MEDS: POTASSIUM CHLORIDE 20 MEQ TAB PO (09:09)
[2023-03-23] MEDS: PANTOPRAZOLE DR 40 MG TABLET PO (09:09)
[2023-03-23] MEDS: BENZOCAINE/MENTHOL 1 LOZ PKT 1 EACH PO (09:25)
--- NOTE | 2023-03-23 10:44 | PT.IPTN ---
Current Diagnoses Alcoholic hepatitis without ascites (03/21/23) Physical Therapy Treatment Note M2 PT-IP Current Condition Start: 03/22/23 13:23 Freq: NEEDED Status: Active Protocol: Document 03/22/23 09:05 AB (Rec: 03/22/23 13:36 AB [id number]) Physical Therapy Current Condition Current Condition Evaluation Date 03/22/23 Treatment Diagnosis GI bleed; difficulty in walking Onset Date 03/21/23 M3 PT-IP Subjective Start: 03/22/23 13:23 Freq: NEEDED Status: Active Protocol: Document 03/23/23 11:29 AB(2) (Rec: 03/23/23 11:46 AB(2) [id number]) Subjective Physical Therapy Visit Type Type Treatment Note Visit Start Time 10:44 Visit Stop Time 11:24 Notes O2 sat 96 % at rest on 2L O2 nasal canula, decreased to 83% post 30 feet of ambulation with FWW, resaturated within 20 seconds to 91% with VC for pursed lip breathing Number of UNIVERSITY LIBRARIAN Visits 1 Physical Therapy Visit Comments Patient Comments Initially reported feeling tired, but agreeable to participate. Spouse repoorts patient may be going home on hospice. Therapy Pain Assessment Pain When Pain Assessed At Rest Pain Present Pain Present Denied Pain M4 PT-IP Mobility and Gait Start: 03/22/23 13:23 Freq: NEEDED Status: Active Protocol: Document 03/23/23 11:29 AB(2) (Rec: 03/23/23 11:46 AB(2) [id number]) PT-Bed Mobility Assessment Rolling Type of Rolling Roll to Right Level of Assist Contact Guard Assistance Supine to Sit Supine to Sit Contact Guard Assistance Sit to Supine Sit to Supine Contact Guard Assistance Scooting Scooting to Edge of Bed Contact Guard Assistance PT-Transfer Assessment Sit to and From Stand Sit to and from Stand Minimal Assistance Equipment Transfer Assistive Device Gait Belt,Front Wheeled Walker Orthotic/Prosthetic Devices or Brace: No Transfers Transfer Destination Bed,Bedside Commode Transfer Technique Stand Step Pivot Transfer Ability Level of Assist Minimal Assistance Comments Mobility Comments Patient required verbal cues to scoot back in sitting prior to sit to supine transfer. Patient required Verbal cues to decreased velocity during transfer and ambulation. Gait Assessment Gait Gait Assistance Required: Contact Guard Assist Distance (Feet) 30 Assistive Devices Assistive Device Gait Belt,Front Wheeled Walker Orthotic/Prosthetic Devices or Brace: No Factors Limiting Gait Function Factors Limiting Gait Function Decreased Activity Tolerance, Decreased Strength,Difficulty Following Directions,Poor Balance,Poor Safety Awareness Comments Gait Comments Patient ambulates with increased velocity, lack of concern for O2 tubing and desaturated to 83% O2 sat with 30 feet of ambulation with FWW. PT-Balance Assessment Sitting Balance and Reactions Static Sitting Balance Ability Good Dynamic Sitting Balance Ability Good Standing Balance and Reactions Static Standing Balance Ability Fair Dynamic Standing Balance Ability Fair Device Used FWW M5 PT-IP Objective Assessments Start: 03/22/23 13:23 Freq: NEEDED Status: Active Protocol: Document 03/22/23 09:05 AB (Rec: 03/22/23 13:36 AB [id number]) Orientation Orientation/Cognition Level of Alertness Confusional State Orientation Name,Place,Situation Language Function Ability No Deficits Noted Safety Awareness Decreased Safety Awareness Memory Description Short Term Impaired Gross Range of Motion Lower Extremity ROM Assessment Within Functional Limits Strength Lower Extremity Strength Hip 3+/5 Knee 3+/5 Muscle Tone Muscle Tone WNL Yes M6 PT-IP Treatment Start: 03/22/23 13:23 Freq: NEEDED Status: Active Protocol: Document 03/22/23 09:05 AB (Rec: 03/22/23 13:36 AB [id number]) Physical Therapy Treatment Education Education Provided Safety M7 PT-IP Assessment and Plan Start: 03/22/23 13:23 Freq: NEEDED Status: Active Protocol: Document 03/23/23 11:29 AB(2) (Rec: 03/23/23 11:46 AB(2) [id number]) PT Summary Assessment and Plan Potential Rehabilitation Potential Fair Summary Impairments Pain,ROM,Strength,Balance, Coordination,Sensation,Tone, Cognition,Bed Mobility, Transfers,Gait,Activity Tolerance Progress Towards Goals Progressing Toward Goals Assessment Summary Patient progressed to CGA for ambulation with FWW, transfers and bed mobility, but did desaturate to 83% ambulating 30 feet with FWW, while on 2L O2 nasal canula. Spouse assists pt at home and provides 24/7 assist to pt. pt will benefit from HHPT. will continue to assess progress. Goals Bed Mobility Goal Independent Transfer Goal Independent,Front Wheeled Walker Gait Goal Independent,Front Wheel Walker Gait Distance 50 Other Goals improve transfers/ambulation using quad cane 150 ft SBA up/down 4 steps 1 rail SBA Days to Meet Goals 10 Frequency of Treatment Frequency Of Treatment Once a Day Treatment Plan Physical Therapy Treatment Plan Bed Mobility Training,Transfer Training,Gait Training, Therapeutic Exercise,Balance Retraining,Discharge Planning, Hot or Cold Pack,Neuromuscular Re-ed,Coordination Retraining ,Manual Therapy Other Recommendations and Next Treatment Possibly progress gait and Focus transfers with less verbal cues as able. Precautions Other Precautions falls Recommendations To Nursing Amount of Assist Needed 1 Person Assist Discharge Recommendations PT Discharge Recommendations Home with 30/08 Assist Available,Home Health Transportation Needs at Discharge Private Vehicle,Wheelchair/ Cabulance
[2023-03-23] MEDS: SODIUM CHLORIDE 0.9% 1,000 ML 84 ML IV ×2 (12:02→23:29)
--- NOTE | 2023-03-23 14:39 | CM.DPC ---
DCP Cont. Reviewed EMR and team rounds for status updates. Hospitalist met with family and discussed goals of care. Due to pt's level of significant malnutrition, and her inability to eat/gain any nutritional benefit, they have decided to focus on comfort and hospice services. Called her spouse, Allen, and had a lengthy conversation about hospice and what to expect with services and end of life. Faxed clinicals and referral to [facility], followed by a call to alert them to the referral. Will plan to connect with pt's spouse, Allen, again tomorrow re: status.
--- NOTE | 2023-03-23 14:49 | SLP.IPNOTE ---
Per hospitalist, plan is for pt to transition to hospice. states ok to d/c ST orders at this time.
[2023-03-23] MEDS: ACETAMINOPHEN SUSP 650 MG/20.3 ML UDC PO (20:57)
[2023-03-24] VITALS (15 sets, daily range): BP systolic 92–132; BP diastolic 61–72; PULSE 74–100; RESP 16–20; TEMP 36.1–36.6; O2SAT 92–97
[2023-03-24] MEDS: LEVOTHYROXINE 75 MCG TABLET 150 MCG PO (06:14)
[2023-03-24] MEDS: SODIUM CHLORIDE 0.9% FLUSH 10 ML IV ×3 (06:15→19:57)
[2023-03-24 06:49] LABS: Add Manual Diff / Slide Review NO; Basophils Absolute Auto 100 /uL (0-100); Basophils Percent Auto 0.7 % (0-2); Eosinophils Absolute Auto 200 /uL (0-450); Eosinophils Percent Auto 1.5 % (2-4); Hematocrit 31.6 % (36-46); Hemoglobin 10.7 g/dL (12.0-16.0); Lymphocytes Absolute Auto 1900 /uL (1100-4500); Lymphocytes Percent Auto 19.6 % (25-40); Mean Corpuscular Hemoglobin 36.2 PG (26-34); Mean Corpuscular Volume 106.4 fL (80-100); Monocytes Absolute Auto 800 /uL (0-900); Monocytes Percent Auto 8.6 % (3-14); Neutrophils Absolute Auto 6800 /uL (1500-7000); Neutrophils Percent Auto 69.6 % (50-75); Platelet Count 218 X10^3/uL (150-400); Red Blood Cell Count 2.97 X10^6/uL (4.0-5.2); Red Cell Distribution Width 12.6 % (11.6-14.8); White Blood Cell Count 9.7 X10^3/uL (4.5-11.0)
[2023-03-24 07:03] LABS: Alanine Aminotransferase 30 IU/L (<35); Albumin 2.4 g/dL (3.5-5.0); Albumin Globulin Ratio 0.9 (1.0-2.8); Alkaline Phosphatase 111 U/L (38-126); Aspartate Aminotransferase 84 IU/L (14-36); BUN Creatinine Ratio 30.6 (6-22); Bilirubin Total 1.6 mg/dL (0.2-1.3); Blood Urea Nitrogen 15 mg/dL (7-17); Calcium 7.7 mg/dL (8.4-10.2); Carbon Dioxide 23 mmol/L (22-32); Chloride 103 mmol/L (98-107); Estimated Glomerular Filt Rate > 60 mL/min (>60); Globulin 2.6 g/dL (1.7-4.1); Glucose 85 mg/dL (80-110); HEMOLYSIS 24 (0-50); Potassium 3.4 mmol/L (3.4-5.1); Sodium 135 mmol/L (137-145)
--- NOTE | 2023-03-24 07:36 | P.PN_ITS ---
Subjective Subjective Interval history: She feels a bit better, persistent anorexia. No abdominal pain. Hospice can open in 2 days, telephone appointment is for later today. She requests ongoing hospital care with discharge tomorrow to better coordinate with home hospice. She is receiving IV fluids. Exam Vital Signs (past 8 hours): - 03/24/23 00:00 03/24/23 02:00 03/24/23 04:00 Temperature 96.9 F L 97.7 F Pulse Rate 85 91 H Respiratory Rate 18 20 Blood Pressure 92/61 99/68 Pulse Oximetry 96 96 97 Oxygen Delivery Method Nasal Cannula Oxygen Flow Rate 2 2 2 03/24/23 06:45 Temperature Pulse Rate Respiratory Rate Blood Pressure Pulse Oximetry 96 Oxygen Delivery Method Nasal Cannula Oxygen Flow Rate 2 Fraction of Inspired Oxygen 28 SaO2/FiO2 Ratio 328 Oxygen Delivery Method Nasal Cannula Oxygen Flow Rate 2 Narrative Exam Narrative: NAD, cachectic and chronically ill. Lungs are clear with normal rate and effort. Heart is regular without murmur. Abdomen is non-tender, and is distended. Extremities are free of edema with good radial pulses. Objective Labs 03/24/23 06:40 03/24/23 06:40 Labs: Laboratory Results - last 24 hr 03/24/23 06:40 WBC 9.7 RBC 2.97 L Hgb 10.7 L Hct 31.6 L MCV 106.4 H MCH 36.2 H MCHC 34.0 RDW 12.6 Plt Count 218 Neut % (Auto) 69.6 Lymph % (Auto) 19.6 L [place] % (Auto) 8.6 Eos % (Auto) 1.5 L Baso % (Auto) 0.7 Neut # (Auto) 6800 Lymph # (Auto) 1900 [place] # (Auto) 800 Eos # (Auto) 200 Baso # (Auto) 100 Sodium 135 L Potassium 3.4 Chloride 103 Carbon Dioxide 23 BUN 15 Creatinine 0.49 L Estimated GFR > 60 BUN/Creatinine Ratio 30.6 H Glucose 85 Calcium 7.7 L Magnesium 2.0 Total Bilirubin 1.6 H AST 84 H ALT 30 Alkaline Phosphatase 111 Total Protein 5.0 L Albumin 2.4 L Globulin 2.6 Albumin/Globulin Ratio 0.9 L PFSH Medical History Cirrhosis COVID-19 virus infection Esophageal dyskinesia Upper GI bleed Hypothyroid Surgical History History of dental surgery Hx of tonsillectomy Social History household members: spouse Smoking Status: Never smoker alcohol intake: current Assessment & Plan Assessment & Plan narrative: Alcoholic hepatitis or cirrhosis with volume overload, present on admission and active. Melena, present on admission and improving. - Hg 12.3, no ongoing episodes. H/H stable. - continue IV PPI BID - not currently recommended for endoscopy after discussion with general surgeon, reconsult if further episodes come about Severe alcohol use disorder, present on admission and active. - advised cessation, no desire to stop. Mild cognitive impairment, present on admission and active. Hypothyroidism, stable. - continue home levothyroxine. Malnutrition, present on admission and active. - Dietary and PHYSICAL THERAPY ASSISTANT consultations. Did all right on MBS. Recurrent Right pleural effusion, present on admission and active. - Considered thoracentesis, but patient wishes to try to avoid procedure after discussion. She is not hypoxic and symptoms seem fairly stable so attempt for removal with diresusis is reasonable. Hyponatremia, hypokalemia, thrombocytopenia , present on admission and active. - likely due to decreased oral intake, EtOH use Plan: Continue gentle IV fluids Met with and discussed hospice. Anticipate discharge on March 25 in the morning. The and patient are prepared for this. Hospice would open on . Equipment may be available to deliver on 03/25. Code: DNR, surrogate is patient's spouse DVT: SCDs given thrombocytopenia on admit Time Spent With Patient Time with patient: 30 to 49 minutes with 50% spent counseling/coordinating care Quality VTE Deep Vein Thrombosis/Pulmonary Embolism Present on Admission: No
[2023-03-24] MEDS: PANTOPRAZOLE DR 40 MG TABLET PO (09:06)
[2023-03-24] MEDS: SODIUM CHLORIDE 0.9% 1,000 ML 84 ML IV ×2 (09:06→20:36)
--- NOTE | 2023-03-24 10:41 | DIET.PN1 ---
Dietary Progress Note Assessment: 72F admitted with PMH of ETOHism with continued daily use, hypothyroidism, GERD, mild cognitive impairment, and presented with possible melena. MNA of 4 indicating risk for malnutrition. Wt hx indicates some weight loss, though this would be over one year (not significant). Cindy reports her UBW of 55kg, indicating she is 8% down from UBW over unclear amt of time. She is unsure when weight loss occurred, however endorses very low appetite and swallowing concerns x 1 week. BMI moderately low for age <23 Nutrition focused physical exam indicates severely depressed temples, significantly boxed shoulders and moderately depressed interosseous muscle indicating wasting. she cannot provide an adequate diet recall or even tell me how often she eats. States she eats when hungry and not when not. has not been hungry lately. On full liq diet. Does not want smoothies. willing to try high kcal ensure vanilla. Plan is for hospice per hospitalist notes with d/c tomorrow. Ht: 154.94 cm Wt: 51.256 kg BMI: 21.3 Last BM: 03/23/23 (03/23/23 21:35) MNA: 4 Farshad Score: 19 Diet: 03/21/23 Lunch Full Liquid Diet Diet Modifications: Labs: RBC 2.97 X10^6/uL (4.0-5.2) L 03/24/23 06:40 Hgb 10.7 g/dL (12.0-16.0) L 03/24/23 06:40 Hct 31.6 % (36-46) L 03/24/23 06:40 Creatinine 0.49 mg/dL (0.52-1.04) L 03/24/23 06:40 Lactate 1.4 mmol/L (0.7-2.1) 03/21/23 08:45 Nutrition Diagnosis: Acute moderate protein calorie malnutrition r/t reduced appetite and swallowing difficulties x 1 week aeb pt report, physical signs of wasting in temporal, shoulder, and interosseous regions, and low for age BMI of 21. Interventions: high kcal ONS TID EER: 1400-1500kcal (28-30kcal/kg per BMI) 60-70g PRO (1.2-1.3g/kg per PCM) Monitoring/Evaluations: consult prn Electronically Signed by: Keke Nguyen 03/24/23 10:41 Clinical Dietitian [address] [address]
--- NOTE | 2023-03-24 10:45 | PT-IP ANOTE ---
Pt refused to work with PT this morning. She became agitated and angry when asked if she would like to get up with PT and states she is cold and wants to stay in bed. PT will check on pt tomorrow if still in hospital.
[2023-03-24] MEDS: POTASSIUM CHLORIDE 20 MEQ TAB 40 MEQ PO (11:32)
--- NOTE | 2023-03-24 13:50 | CM.DPC ---
DCP Cont. Reviewed EMR and team rounds for status updates. Pt/sp[facility] will have their [facility] this [facility]. Plan is to d/c home tomorrow, Hospice will open on Tuesday for services. Spouse will transport. No further anticipated d/c needs.
[2023-03-25 02:00] VITALS: O2SAT 93
[2023-03-25 05:43] VITALS: BP 111/75; PULSE 98; RESP 19; TEMP 36.4; O2SAT 95
[2023-03-25 06:00] VITALS: O2SAT 93
[2023-03-25] MEDS: LEVOTHYROXINE 75 MCG TABLET 150 MCG PO (06:08)
[2023-03-25 08:00] VITALS: BP 106/70; PULSE 98; RESP 16; TEMP 36.6; O2SAT 93
[2023-03-25] MEDS: SODIUM CHLORIDE 0.9% FLUSH 10 ML IV (08:30)
[2023-03-25] MEDS: SODIUM CHLORIDE 0.9% 1,000 ML 84 ML IV (08:30)
[2023-03-25] MEDS: PANTOPRAZOLE DR 40 MG TABLET PO (08:30)
[2023-03-25 10:00] VITALS: O2SAT 93
--- NOTE | 2023-03-25 10:03 | P.DS_ITS ---
History of Present Illness History of Present Illness Chief complaint: dehydrated, pool of blood when using restroom Narrative: Cindy Kent is a 72yo F with PMH of alcoholism, hypothyroidism, GERD, and mild cog impairment who presented after an episode of possible melena. Early this morning patient was trying to get to the bathroom but did not make it and had a puddle of dark liquid stool on the floor. She denies abdominal pain or hematemesis, nausea or vomiting. She continues to drink but at most drinks 1 sylvie's hard lemonade now over the course of the day. She is not interested in cessation, she does not get shaky when she doesn't drink now. Spouse reports continued decline and weight loss even prior to her COVID infection recently. She has chronic issues with swallowing, follows with GI, but have been limited with interventions due to continued drinking. She has had inability to tolerate much solid intake over the couse of the past few months. She also reports worsening leg swelling, mild dyspnea, but profound fatigue. Also with chronic cough, unchanged, no new shortness of breath reported. Discharge Providers Provider Date of admission: 03/21/23 12:40 Discharge Date: 03/25/23 Primary care physician: ELISE Lopez Consults: 03/21/23 07:48 Consult to CHANGE OF ADDRESS CLERK - [employer] Stat Comment: CHANGE OF ADDRESS CLERK Consult needed for:: End of Life/Goal Care Dis 03/21/23 13:06 Consult to Occupational Therapy Evaluate & Treat Comment: Physician Instructions: Evaluate and treat Consult to Physical Therapy Evaluate & Treat Comment: Physician Instructions: Evaluate and Treat 03/21/23 13:14 Consult to Speech Therapy Evaluate & Treat Comment: Physician Instructions: Evaluate and treat 03/24/23 15:29 Consult to Dietitian, Adult Routine Comment: Reason For Exam: malnutrition Discharge provider: Caesar Polanco MD Summary Hospital Course Discharge Diagnosis: Alcoholic hepatitis or cirrhosis with volume overload, present on admission and active. Melena, present on admission and improving. - Hg 12.3, no ongoing episodes. H/H stable. - not currently recommended for endoscopy after discussion with general surgeon, reconsult if further episodes come about Severe alcohol use disorder, present on admission and active. - advised cessation, no desire to stop. Mild cognitive impairment, present on admission and active. Hypothyroidism, stable. - continue home levothyroxine. Malnutrition, present on admission and active. - Dietary and CLAIM INVESTIGATOR consultations. Did all right on MBS. Recurrent Right pleural effusion, present on admission and active. - Considered thoracentesis, but patient wishes to try to avoid procedure after discussion. She is not hypoxic and symptoms seem fairly stable so attempt for removal with diresusis is reasonable. Hyponatremia, hypokalemia, thrombocytopenia , present on admission and active. - likely due to decreased oral intake, EtOH use Hospital Course: The patient is a 72-year-old female with a history of severe alcohol use disorder and recurrent right pleural effusion as well as alcohol-induced hepatitis and probably cirrhosis. She presented with some concern for encephalopathy as well as GI bleeding. The patient was found to be hyponatremic and hypokalemic at the time of admission. She was felt not to be a great candidate for endoscopy and medical management was pursued with a PPI b.i.d.. The patient improved with gentle IV fluids and her hemoglobin remained stable. Level of care discussions soon followed with her , with whom I have discussed the possibility of hospice in the past. The did agree with initiation of hospice and this was arranged with an opening date of March 26, 1 day after discharge. On the morning of discharge the patient is stable vital signs and feels clinically improved. The is at bedside is comfortable taking her home today. He will bring her home by car. We will continue her baseline medications and leave her PPI just once daily. Status at Discharge Cognitive/behavioral status at discharge: at baseline, confused Functional status at discharge: uses cane/walker Overall status at discharge: patient is progressing back to baseline Time Spent with Patient Time spent: Greater than 30 minutes Exam Vital Signs (past 8 hours): - 03/25/23 05:43 03/25/23 06:00 03/25/23 08:00 Temperature 97.5 F L 97.8 F Pulse Rate 98 H 98 H Respiratory Rate 19 16 Blood Pressure 111/75 106/70 Pulse Oximetry 95 93 93 Oxygen Delivery Method Nasal Cannula Oxygen Flow Rate 2 2 2 Fraction of Inspired Oxygen 28 SaO2/FiO2 Ratio 346 Oxygen Delivery Method Nasal Cannula Oxygen Flow Rate 2 Narrative Exam Narrative: NAD, cachectic and chronically ill. Mildly confused. Lungs are clear with normal rate and effort. Heart is regular without murmur gallop or rub. No leg edema. Objective Labs 03/24/23 06:40 03/24/23 06:40 PFSH Medical History Cirrhosis COVID-19 virus infection Esophageal dyskinesia Upper GI bleed Hypothyroid Surgical History History of dental surgery Hx of tonsillectomy Social History household members: spouse Smoking Status: Never smoker alcohol intake: current Discharge Assessment & Plan Assessment and Plan Assessment: Alcoholic hepatitis or cirrhosis with volume overload, present on admission and active. Melena, present on admission and improving. Severe alcohol use disorder, present on admission and active. Mild cognitive impairment, present on admission and active. Hypothyroidism, stable. Malnutrition, present on admission and active. Recurrent Right pleural effusion, present on admission and active. Hyponatremia, hypokalemia, thrombocytopenia , present on admission and active. Plan of Treatment: Discharge to home with home hospice. They open 03/26. Discharge Plan Discharge Plan Patient Disposition: Hospice - Home Provider Discharge Comment: Stable for discharge with Hospice at home. Discharge orders & Medications Prescriptions: Continued pantoprazole 40 mg tablet,delayed release (DR/EC) 40 mg PO DAILY Qty: 60 1RF levothyroxine 125 mcg tablet 150 mcg PO DAILY folic acid 1 mg Tablet 1 mg PO DAILY Qty: 30 1RF thiamine mononitrate (vit B1) 100 mg Tablet 100 mg PO DAILY Qty: 30 1RF Medication counseling provided by Pharmacist: No Follow up/Referrals: Dara Peters ARNP [Primary Care Provider] - Discharge Health Status Multidrug resistant organism: No MDRO Diet/Activity/Treatments Diet: Diet as Tolerated Visit Report/Discharge Packet Stand Alone Forms: Patient Portal/API Discharge Data Primary Care Provider: Dara Peters Quality VTE Deep Vein Thrombosis/Pulmonary Embolism Present on Admission: No MIPS - DC The patient has a history of heart transplant or Left Ventricular Assist Device (LVAD). If yes, STOP here.: No The patient has current or prior documentation of left ventricular ejection fraction (LVEF) less than or equal to 40%, or moderate or severely depressed left ventricular systolic function.: No
--- NOTE | 2023-03-25 10:45 | CM.DPNOTE ---
DCP Note STORE ADMINISTRATOR reviewed EMR. Per chart review, plan for home with [facility] today. STORE ADMINISTRATOR entered room and introduced self and role. Pt resting in bed with spouse Allen at bedside. Pt and spouse eager to dc home today back to their multiple goats/horse/chickens/bird/dog/cats. Pt and spouse report they're all set with [facility] and getting equip/intake appointment tomorrow. Report no additional CM needs. NERI Peña kindly agreed to fax dc summary to [facility]. STORE ADMINISTRATOR lvm with [facility] to confirm dc today. Plan: pt to dc today with spouse to transport. [facility] to open tomorrow in the home. No other needs identified at this time. CAROLINE Chaparro
--- NOTE | 2023-03-25 11:23 | PC.NURSE ---
Pt discharged home with hospice at 1145, escorted off floor in wheelchair accompanied by family and hospital staff. IV removed, discharge teaching provided to pt and family, including following up with hospice and medications. Questions answered. Patient left the floor with all belongings.
[2023-03-25 11:40] VITALS: O2SAT 91
== END 2023-03-25 11:56 | disposition hospice, home (50) | DRG 433 ==
LOC: ED 07:15 → AC 12:53
PROVIDERS: Emergency Medicine; Admitting Provider Internal Medicine; Emergency Provider Emergency Medicine; Family Provider Family Medicine; PCP Nurse Practitioner Family; Referring Provider Emergency Medicine; Visit Provider Internal Medicine
DX: K70.10 Alcoholic hepatitis without ascites (principal); E44.0 Moderate protein-calorie malnutrition; E87.1 Hypo-osmolality and hyponatremia; J90 Pleural effusion, not elsewhere classified; K92.1 Melena; F10.10 Alcohol abuse, uncomplicated; E03.9 Hypothyroidism, unspecified; E87.6 Hypokalemia; D69.6 Thrombocytopenia, unspecified; K70.30 Alcoholic cirrhosis of liver without ascites; G31.84 Mild cognitive impairment of uncertain or unknown etiology; Y90.0 Blood alcohol level of less than 20 mg/100 ml; Z68.21 Body mass index [BMI] 21.0-21.9, adult; Z66 Do not resuscitate
CPT/HCPCS: 36415; 36556; 36592; 71045; 74230; 80053; 80320; 81001; 83605; 83690; 83735; 84439; 84443; 85014; 85018; 85025; 86850; 86900; 86901; 87635; 92610; 92611; 93306; 94760; 96374; 97162; 97530; 99284; C9113; J1642; J1940; J3475